=== PATIENT | female | born 1935 | race Caucasian/White ===

== ENCOUNTER → 2017-10-19 14:27 | Outpatient (POV) | payer SELFPAY | PROVIDERS: PCP Emergency Medicine; Visit Provider Podiatrist | DX: Z00.00 Encounter for general adult medical examination without abnormal findings (principal) ==

== ENCOUNTER → 2017-12-07 11:14 | Outpatient (POV) | payer SELFPAY | PROVIDERS: Visit Provider Podiatrist | DX: Z00.00 Encounter for general adult medical examination without abnormal findings (principal) ==

== ENCOUNTER → 2020-04-26 12:38 | Outpatient (CLI) | payer MEDICARE, OTHER, SELFPAY ==
--- NOTE | 2020-04-26 12:41 | CA_ITS ---
APPROVED REPORT EXAM: Comprehensive 2D, Doppler, and color-flow Echocardiogram Rate Clerk Passenger: Nadya Go RCS, RVS Ht: 5 ft 5 in Wt: 180lbs BSA: 1.89 BP: 135/75 mmHg Indications: CAD- single coronary stent, COPD, Murmur, HTN, HLD Echo Enhancing Agent Comments: Cardiac arrythmia present 2D Dimensions IVSd 1.22 cm LVEF (Visual) 54.30 % PWd 0.91 cm LVDd 5.53 cm LVDs 3.96 cm Aortic Root 3.16 cm Left Atrium 3.95 cm LVOT 2.00 cm (M/F) 1.5-2.5 M-Mode Dimensions LA Diam 4.35 cm (1.9-4.0) Ao Diam 3.24 cm (2.0-3.7) EPSs 1.18 cm LV Diastology E Decel Time 220.00 (160-240 msec) E/A Ratio 0.78 MED E' 5.30 (< 7 cm/sec) MED A' 8.20 cm/s E'/MED E' Ratio 16.04 (>14) LAT E' 8.10 (<10 cm/sec) LAT A' 6.50 cm/s E/LAT E' Ratio 10.49 (>14) Aortic Valve AI PHT 385.00 ms AO Peak GR. 9.50 mmHg AO VTI 214.16 (18-25 cm) Mitral Valve MV E Max Brady. 85.00 (40-130 cm/s) MV A Velocity 110.00 (40-130 cm/s) E/A Ratio 0.78 MV Decel. Time 220.00 (160-240 ms) MV Mean Gr. 2.50 (<2mmHg) MV PHT 64.00 ms Pulmonary Valve PV Peak Velocity 95.00 (50-150 cm/s) Tricuspid Valve TR P. Velocity 215.00 cm/s RAP Estimate 10.00 mmHg RVSP 28.50 mmHg Left Ventricle Left atrium is mildly enlarged, left ventricle is normal size, mild concentric left ventricular hypertrophy, visually estimated ejection fraction approximately 45 to 50%, there appears to be mild inferior wall hypokinesis, endocardial surfaces are poorly visualized. Right Ventricle Right atrium and right ventricle are normal size and contractility. Aortic Valve Aortic valve is thickened and calcified leaflet continue to display good mobility, there is no aortic stenosis or aortic insufficiency. Mitral Valve Mitral valve leaflets are minimally thickened, there is moderate mitral regurgitation. Tricuspid Valve Tricuspid valve is grossly normal, there is mild tricuspid regurgitation, tricuspid regurgitation jet velocity is inadequate for calculation of the right ventricular systolic pressure. Pulmonic Valve Pulmonic valve is poorly visualized. Great Vessels Aortic root is normal size. Pericardium No significant pericardial effusion noted. Conclusion 1. Mildly enlarged left atrium, normal left ventricular size, mild concentric left ventricular hypertrophy, visually estimated ejection fraction 45 to 50% with segmental wall motion abnormality described above, endocardial surfaces are poorly visualized. Diastolic parameters are inconclusive. 2. Moderate mitral and mild tricuspid regurgitation. 3. No significant pericardial effusion noted. Electronically signed by : Jeff Mejias, 04/26/2020 20:05:30
== END ==
PROVIDERS: PCP Emergency Medicine; Visit Provider Emergency Medicine
DX: R01.1 Cardiac murmur, unspecified (principal)
CPT/HCPCS: 93306

== ENCOUNTER → 2020-06-25 17:16 | Outpatient (CLI) | payer MEDICARE, OTHER, SELFPAY ==
[2020-06-25 17:18] LABS: Microscopic, Urine URINE MICROSCOPIC (MICROSCOPIC)
[2020-06-25 17:27] LABS: Appearance,Urine SL CLOUDY (Clear); Bilirubin,Urine Negative (Negative); Blood, Urine Negative (Negative); Color,Urine YELLOW (Yellow); Glucose,Urine (UA) Negative (Negative); Ketones,Urine Negative (Negative); Leukocyte Esterase,Urine Negative (Negative); Nitrate,Urine Negative (Negative); Protein,Urine 2+ (Negative); Specific Gravity, Urine >= 1.030 (1.005-1.030); Urobilinogen,Urine 0.2 EU/dl (0.2)
[2020-06-25 17:39] LABS: Amorphous Sediment,Urine 1+ /lpf; Squamous Epithelial Cell,Urine 20-50 #/hpf (0-5)
== END ==
PROVIDERS: Visit Provider Emergency Medicine
DX: R30.0 Dysuria (principal)
CPT/HCPCS: 81001

== ENCOUNTER 2020-07-17 16:24 | Inpatient (IN) | payer MEDICARE, OTHER, SELFPAY ==
[2020-07-17] VITALS (7 sets, daily range): BP systolic 119–157; BP diastolic 75–88; PULSE 75–110; RESP 16–24; TEMP 36.4–36.8; O2SAT 87–98; BMI 31.4; BMI 33.3
--- NOTE | 2020-07-17 16:28 | HMH.EDGENADL ---
ED Disposition Clinical Impression: New onset atrial fibrillation, Acute and chronic respiratory failure with hypoxia CHF exacerbation Qualifiers: Heart failure type: unspecified Qualified Code(s): I50.9 - Heart failure, unspecified Disposition: Admitted As Inpatient Condition on Discharge: Good Time of Disposition: 18:54 - Critical Care Critical Care Time: No Attestation: On , the high probability of a clinically significant, sudden or life threatening deterioration of the following system(s) required my full and direct attention, intervention and personal management. The time I documented below is in addition to time spent performing reported procedures but includes the following listed in this critical care notation. Medical Decision Making - Medical Records Medical records reviewed: Yes: I reviewed the patient's medical records. - Giovani Inquiry Pt receiving controlled substance: No Vital Signs: 07/17/20 16:25 Temperature 98.3 F Temperature Source Oral Pulse Rate [Radial] 94 H Respiratory Rate 20 Blood Pressure [Right Arm] 157/88 H Blood Pressure Mean [Right Arm] 111 02 Sat by Pulse Oximetry 87 L Oxygen Delivery Method Nasal Cannula Oxygen Flow Rate (LPM) 3 - Lab Data Lab results reviewed: Yes: I reviewed the patient's lab results. Lab Results 07/17/20 16:58: WBC 12.0 H, RBC 3.59 L, Hgb 10.1 L, Hct 33.1 L, MCV 92.4, MCH 28.3, MCHC 30.6 L, RDW 15.6, Plt Count 274, MPV 8.4, Neut % (Auto) 77.8, Lymph % (Auto) 14.3, [place] % (Auto) 6.4, Eos % (Auto) 0.8, Baso % (Auto) 0.5, Neut # (Auto) 9.3 H, Lymph # (Auto) 1.7, [place] # (Auto) 0.8, Eos # (Auto) 0.1, Baso # (Auto) 0.1 07/17/20 16:58: Sodium 131 L, Potassium 4.9, Chloride 99, Carbon Dioxide 24, Anion Gap 12.9, BUN 20 H, Creatinine 1.10 H, Estimated Creat Clear 44, Estimated GFR 47 L, Est GFR ( Amer) 57 L, Glucose 113 H, Calcium 9.0, Troponin I < 0.01, NT-Pro-B Natriuret Pep [id number] H 07/17/20 17:30: Urine Color Yellow, Urine Appearance Clear, Urine pH 6.0, Ur Specific [place] 1.020, Urine Protein Negative, Urine Glucose (UA) Negative, Urine Ketones Negative, Urine Blood Negative, Urine Nitrate Negative, Urine Bilirubin Negative, Urine Urobilinogen 0.2, Ur Leukocyte Esterase Negative, Urine RBC None, Urine WBC None, Ur Squamous Epith Cells 10-20, Urine Bacteria None Result diagrams: 07/17/20 16:58 07/17/20 16:58 Orders (Tests/Meds): ED MEDICATIONS Discontinued Medications Generic Name Dose Route Start Last Admin Trade Name Freq PRN Reason Stop Dose Admin Furosemide 20 mg 07/17/20 17:41 07/17/20 17:55 Furosemide 40mg/4ml Vial IV 07/17/20 17:42 20 mg ONCE ONE Administration ORDERS Category Date Time Status CXR 2 view (NOT portable) [XR chest 2V] Stat Exams 07/17/20 16:55 Taken Full Resp Panel w/COVID ([facility]) Routine Lab 07/17/20 17:45 Received Troponin I Q3H Lab 07/17/20 20:00 Ordered Troponin I Q3H Lab 07/17/20 23:00 Ordered - Radiology Data #1 Image(s): Chest Image Reviewed: Yes I reviewed the patient's radiology image Preliminary Findings: Abnormal Diffuse congestion - ECG Data Tracing #1 90 bpm, atrial fibrillation, nonspecific ST-T wave abnormalities, no ST elevation or depression ECG initial impression date: 07/17/20 ECG initial impression time: 16:48 Medical Decision Narrative: 85yo F evaluated for progressively worsening shortness of breath over 1 week. Differential diagnosis includes was not limited to: ACS/HI, pneumonia, PE, CHF exacerbation, GERD, anxiety, pulmonary embolism, arrhythmia, aortic dissection, pneumothorax. Patient is in no acute distress and satting 91 to 92% on her home O2. She is able to speak in full sentences. She is very pleasant and cooperative. Physical exam is largely unremarkable. Routine shortness of breath/chest pain work-up has been initiated. EKG demonstrates atrial fibrillation. The patient denies any previous history of atrial fibrillation. Noted to renae
--- NOTE | 2020-07-17 16:55 | XR_ITS ---
PROCEDURE: XR CHEST 2V CLINICAL HISTORY: sob Shortness of breath COMPARISON: No exams were available for comparison FINDINGS: There is cardiomegaly with pulmonary venous congestion and small bilateral pleural effusions consistent with CHF. There is an epidural stimulator present in the mid and upper thoracic region. Mild atelectatic changes in the lung bases. Severe bilateral subacromial stenosis with high-riding humeral head consistent with rotator cuff tears IMPRESSION: CHF with small bilateral effusions Dictated by: Thanh Galo MD 07/17/2020 19:12 Thanh Galo MD in [place] 07/17/2020 19:12
--- NOTE | 2020-07-17 17:09 | ECG_ITS ---
APPROVED REPORT Exam: Resting ECG HR:90 bpm ECG Measurements Heart Rate 90 AXES QRSd 84 QRS -22 QT 344 T 56 QTc 420 Conclusion Atrial fibrillation Nonspecific ST and T wave abnormality, probably digitalis effect Abnormal ECG Electronically signed by : Antonio Soto, 07/18/2020 08:49:00
[2020-07-17 17:12] LABS: Basophils # 0.1 K/mm3 (0-0.2); Basophils % 0.5 % (0.1-2.0); Eosinophils # 0.1 K/mm3 (0.0-0.4); Eosinophils % 0.8 % (0.1-12.0); Hematocrit 33.1 % (37.0-47.0); Hemoglobin 10.1 g/dL (12.2-16.2); Lymphocytes # 1.7 K/mm3 (0.7-4.5); Lymphocytes % 14.3 % (10-50); Mean Corpuscular HGB Conc 30.6 g/dL (31.8-35.4); Mean Corpuscular Hemoglobin 28.3 pg (27.0-31.2); Mean Corpuscular Volume 92.4 fl (81-99); Mean Platelet Volume 8.4 fl (7.4-10.4); Monocytes # 0.8 K/mm3 (0.1-1.0); Monocytes % 6.4 % (1.7-9.3); Neutrophils # 9.3 K/mm3 (1.8-7.8); Neutrophils % 77.8 % (37.0-80.0); Platelet Count 274 K/mm3 (142-424); Red Blood Count 3.59 M/mm3 (4.20-5.40); Red Cell Distribution Width 15.6 % (11.5-17.5)
[2020-07-17 17:13] LABS: Chloride 99 mmol/L (98-107)
[2020-07-17 17:14] LABS: Potassium 4.9 mmoL/L (3.5-5.1); Sodium 131 mmol/L (136-145)
[2020-07-17 17:16] LABS: Blood Urea Nitrogen 20 mg/dl (7-17); Creatinine Clearance Estimated 44 mL/min (50-200); Estimated Glomerular Filt Rate 47 ml/min (>60); GFR (African American) 57 ML/MIN (>60)
[2020-07-17 17:17] LABS: Anion Gap 12.9 mEq/L (5-15); Carbon Dioxide 24 mmol/L (22.0-30.0); Glucose 113 mg/dl (74-100)
[2020-07-17 17:26] LABS: NT Pro Brain Natriuretic Pep. 15900 pg/mL (0-450)
[2020-07-17 17:30] LABS: Troponin I < 0.01 ng/ml (0.00-0.034)
[2020-07-17 17:40] LABS: Microscopic, Urine URINE MICROSCOPIC (MICROSCOPIC)
[2020-07-17 17:48] LABS: Adenovirus,PCR Not Detected (NotDetected); Bordetella Pertussis Not Detected (NotDetected); Chlamydophila Pneumoniae, PCR Not Detected (NotDetected); Coronavirus 19, PCR Not Detected (NotDetected); Coronavirus 229E Not Detected (NotDetected); Coronavirus NL63 Not Detected (NotDetected); Coronavirus OC43 Not Detected (NotDetected); Coronovirus HKU1,PCR Not Detected (NotDetected); Human Metapneumovirus Not Detected (NotDetected); Influenza A, PCR Not Detected (NotDetected); Influenza AH1, 2009 Not Detected (NotDetected); Influenza AH1, PCR Not Detected (NotDetected); Influenza AH3,PCR Not Detected (NotDetected); Influenza B, PCR Not Detected (NotDetected); Mycoplasma Pneumoniae, PCR Not Detected (NotDetected); Parainfluenza 1, PCR Not Detected (NotDetected); Parainfluenza 2, PCR Not Detected (NotDetected); Parainfluenza 3, PCR Not Detected (NotDetected); Parainfluenza 4, PCR Not Detected (NotDetected); Respiratory Syncytial Virus Not Detected (NotDetected); Rhinovirus/Enterovirus Not Detected (NotDetected)
[2020-07-17 17:51] LABS: Appearance,Urine CLEAR (Clear); Bilirubin,Urine Negative (Negative); Blood, Urine Negative (Negative); Color,Urine YELLOW (Yellow); Glucose,Urine (UA) Negative (Negative); Ketones,Urine Negative (Negative); Leukocyte Esterase,Urine Negative (Negative); Nitrate,Urine Negative (Negative); Protein,Urine Negative (Negative); Urobilinogen,Urine 0.2 EU/dl (0.2)
--- NOTE | 2020-07-17 18:18 | PC.NURSE ---
MARLENE DILLARD speaking with Dr. Soto who is hat ironer for Dr. Alamo
--- NOTE | 2020-07-17 19:24 | PC.NURSE ---
REPORT CALLED TO FLOOR
--- NOTE | 2020-07-17 19:26 | PC.NURSE ---
URINE OUT PUT 300CC
--- NOTE | 2020-07-17 19:26 | PC.NURSE ---
PT AND FAMILY UPDATED ON PLAN OF CARE
--- NOTE | 2020-07-17 19:59 | PC.NURSE ---
PT ARRIVED TO FLOOR SERENA W/C FROM ED W/STAFF AT 1958
--- NOTE | 2020-07-17 21:20 | PC.NURSE ---
Assessment of patient's skin revealed a bruise located on the small of the back measuring 3 cm in diameter. Also noted discoloration BLE below knee.
[2020-07-17 21:27] LABS: Troponin I 0.01 ng/ml (0.00-0.034)
[2020-07-18] VITALS (8 sets, daily range): BP systolic 137–148; BP diastolic 64–93; PULSE 76–115; RESP 16–20; TEMP 36.4–36.9; O2SAT 90–95; BMI 33.3
[2020-07-18 00:07] LABS: Troponin I < 0.01 ng/ml (0.00-0.034)
--- NOTE | 2020-07-18 05:15 | PC.NURSE ---
ice passed trash and linens picked up. pt had no other needs.KEvelinM
--- NOTE | 2020-07-18 06:27 | PC.NURSE ---
Pt admitted for Acute/Chronic Resp Failure, New onset A fib CHF exacerbation. Patient on Tele and Continuous Pulse Ox. Patient had good output last night and diuresed well. Patient has a PureWick and was effective througout the night. Patient's oxygenation WDL on 4 L n/c. Will continue to monitor for any acute changes.
[2020-07-18 07:22] LABS: Basophils # 0.1 K/mm3 (0-0.2); Basophils % 0.6 % (0.1-2.0); Eosinophils # 0.3 K/mm3 (0.0-0.4); Eosinophils % 3.3 % (0.1-12.0); Hematocrit 31.3 % (37.0-47.0); Hemoglobin 9.8 g/dL (12.2-16.2); Lymphocytes # 1.9 K/mm3 (0.7-4.5); Lymphocytes % 19.9 % (10-50); Mean Corpuscular HGB Conc 31.3 g/dL (31.8-35.4); Mean Corpuscular Hemoglobin 28.4 pg (27.0-31.2); Mean Corpuscular Volume 90.7 fl (81-99); Mean Platelet Volume 8.6 fl (7.4-10.4); Monocytes # 0.6 K/mm3 (0.1-1.0); Monocytes % 6.8 % (1.7-9.3); Neutrophils # 6.5 K/mm3 (1.8-7.8); Neutrophils % 69.5 % (37.0-80.0); Platelet Count 220 K/mm3 (142-424); Red Blood Count 3.44 M/mm3 (4.20-5.40); Red Cell Distribution Width 15.8 % (11.5-17.5); White Blood Count 9.4 K/mm3 (4.8-10.8)
[2020-07-18 07:44] LABS: Chloride 110 mmol/L (98-107); Potassium 3.2 mmoL/L (3.5-5.1); Sodium 136 mmol/L (136-145)
[2020-07-18 07:47] LABS: Blood Urea Nitrogen 17 mg/dl (7-17); Creatinine Clearance Estimated 52 mL/min (50-200); Estimated Glomerular Filt Rate 80 ml/min (>60); GFR (African American) 96 ML/MIN (>60)
[2020-07-18 07:48] LABS: Anion Gap 6.2 mEq/L (5-15); Carbon Dioxide 23 mmol/L (22.0-30.0); Glucose 104 mg/dl (74-100)
[2020-07-18 08:25] LABS: Calcium 6.7 mg/dl (8.4-10.2)
--- NOTE | 2020-07-18 09:30 | HMH.HP ---
*Admission Date: 07/17/20 *Chief complaint: sob *History of present illness: this patient presented to the ed with increased sob - she does have hx of copd from distant tob use and uses 2l o2 at home - she has seen card in past - in the ed was noted to be in a fib and have chf and was admitted -5yo F presents secondary shortness of breath. Daughters at bedside. Patient lives with daughter. Reports patient wears 2 L nasal cannula at all time. With her home O2, the daughter reports the patient's home O2 has not been above 91%. Patient and daughter at bedside reported she has been more short of breath. Progressively worsening over the past week. No change in cough. No change in sputum production. No fever. No chest pain. Patient takes Lasix at home which has improved her lower extremity edema. Appetite is normal. No nausea/vomit/diarrhea. pt was admitted for treatment and eval [facility] [place] History I have reviewed the patient's past medical history: Yes Medical History: Reports:: Anxiety, Asthma, Congestive Heart Failure, Chronic Obstructive Pulmonary Disease (COPD), Gastroesophageal Reflux Disease(GERD), Home Oxygen, Hypertension, Osteoporosis, Renal Insufficiency, Urinary Tract Infection Denies:: Cancer, Diabetes Mellitus Type 1, Diabetes Mellitus Type 2, MRSA *Have you ever received a pneumonia vaccine?: Yes *Have you received a flu vaccine this season?: Yes Other Medical History: Reports: Anemia, Cataracts, Hormone Therapy, Hypothyroidism, Osteoporosis, Thyroid Disease Laterality Cases: Right: Arthroscopy Shoulder Other Surgeries: Yes: Cardiac Catheterization, Cholecystectomy, Coronary Stent, Hysterectomy-Total Amputation: No Fractures: Yes - *Social History Last grade of school completed: 5th or 6th Smoking Status: Former smoker Tobacco Type: cigarettes # Packs/Day (cigarettes): 4 #Yrs smoked (if former smoker): 40 Smoking End Date: 11/24/1981 Alcohol Intake: never Substance Use Type: denies use *Occupational Status:: retired Housing: house Household Members: family *Travel in the last 8 weeks: None - Psychiatric History Pschychiatric History:: Reports:: Anxiety Family Hx:: Coronary Artery Disease, Stroke Review of Systems - Review of Systems Review of systems:: pertinent systems reviewed and negative unless documented below - Constitutional Denies body ache(s) - Eyes Denies double vision - ENT Denies difficulty swallowing, Denies sinus pressure, Denies tongue swelling - *Cardiovascular Reports chest pain - *Respiratory Reports cough, Reports shortness of breath - *Gastrointestinal Denies vomiting - *Genitourinary Denies blood in urine - *Musculoskeletal Reports joint pain, Denies joint swelling, Denies neck pain - Integumentary/Breasts Denies rash - *Neurologic Denies behavioral changes, Denies dizziness, Denies headache(s) - Psychiatric Denies thoughts of hurting/killing yourself Meds Home Medications Medication Instructions Recorded Confirmed Type amlodipine 2.5 mg tablet 2.5 mg PO HS tab 02/24/20 07/17/20 History carvedilol 12.5 mg tablet 12.5 mg PO BID 02/24/20 07/17/20 History ergocalciferol (vitamin D2) 1,250 1,250 mcg PO QMONTH 02/24/20 07/17/20 History mcg (50,000 unit) capsule fluticasone propionate 50 1 spray INTRANASAL DAILY 02/24/20 07/17/20 History mcg/actuation nasal spray,suspension lisinopril 20 mg tablet 20 mg PO DAILY 02/24/20 07/17/20 History alprazolam 0.5 mg tablet 0.5 mg PO HS PRN #30 tab 06/25/20 07/17/20 Rx oxycodone-acetaminophen 5 mg-325 1 tab PO BID PRN #60 tab 06/25/20 07/17/20 Rx mg tablet tiotropium bromide 18 mcg capsule 1 cap INHALATION DAILY 06/25/20 07/17/20 History with inhalation device Clopidogrel Bisulfate [Plavix] 75 mg PO DAILY 07/17/20 07/18/20 History Fluoxetine HCl [Prozac] 20 mg PO DAILY 07/17/20 07/18/20 History Gabapentin [Gabapentin 100mg Cap] 100 mg PO BID 07/17/20 07/17/20 History Levothyroxine Sodium [Synthroid 112 mcg PO DA
[2020-07-18 09:57] LABS: Magnesium 1.3 mg/dl (1.6-2.3)
[2020-07-18 10:14] LABS: T4 (Thyroxine) 10.3 ug/dl (5.53-11.0)
[2020-07-18 10:27] LABS: Thyroid Stimulating Hormone 0.27 uIU/mL (0.465-4.68)
--- NOTE | 2020-07-18 11:54 | HMH.PHAVTE ---
[facility] Pharmacy VTE Monitoring - Patient Demographics Admission date: 07/18/20 Report Date: 07/18/20 Time: 11:54 Allergies/Adverse Reactions: Patient Allergies cefuroxime [From Ceftin] Allergy (Intermediate, Verified 06/25/20 16:09) ciprofloxacin [From Cipro] Allergy (Intermediate, Verified 06/25/20 16:09) rash doxycycline Allergy (Intermediate, Verified 06/25/20 16:09) NSAIDS (Non-Steroidal Anti-Inflamma Allergy (Intermediate, Verified 06/25/20 16:09) aspirin Allergy (Mild, Verified 06/25/20 16:09) asthma attack sulfamethoxazole [From Bactrim] Allergy (Mild, Verified 06/25/20 16:09) rash trimethoprim [From Bactrim] Allergy (Mild, Verified 06/25/20 16:09) rash vancomycin Allergy (Mild, Verified 06/25/20 16:09) rash Height: 1.55 m Weight: 80.087 kg Patient Problems: Current Active Problems New onset atrial fibrillation (Acute) CHF exacerbation (Acute) Acute and chronic respiratory failure with hypoxia (Acute) - VTE Risk Labs: VTE Related Lab Results Hgb 9.8 g/dL (12.2-16.2) L 07/18/20 07:03 Hct 31.3 % (37.0-47.0) L 07/18/20 07:03 Plt Count 220 K/mm3 (142-424) 07/18/20 07:03 BUN 17 mg/dl (7-17) 07/18/20 07:03 Creatinine 0.70 mg/dl (0.52-1.04) D 07/18/20 07:03 Estimated Creat Clear 52 mL/min (50-200) 07/18/20 07:03 VTE Score: 9 VTE Risk Level: Moderate Risk - Prophylaxis Types of VTE Prophylaxis: TEDS Knee High, IPCS Knee High (IDCS ORDERED. HOSSEIN HOSE ORDER PLACED IF NEEDED.) Location of Applied Device: Not Applicable
--- NOTE | 2020-07-18 16:36 | PC.NURSE ---
no acute changes since prior nurse's bio, pt is AxOx4, remains on 3L NC with O2 sats 90-95%, no complaints of SOA or chest pain, purewick in place
[2020-07-19] VITALS: BP 138/62; PULSE 90; PULSE 94; RESP 19; TEMP 36.7; O2SAT 93
--- NOTE | 2020-07-19 03:39 | PC.NURSE ---
Able to state name, , place; unable to state year. Pt. can follow commands and state needs. No c/o n/v/d, cp or dizziness. Reports some soa, 3l nc with o2 sat 92-93%; diminished lung sounds bilat.
[2020-07-19 04:00] VITALS: BP 136/62; PULSE 86; PULSE 90; RESP 19; TEMP 36.7; O2SAT 94
[2020-07-19 05:23] VITALS: BMI 33.2
[2020-07-19 08:00] VITALS: BP 144/80; PULSE 110; PULSE 72; RESP 17; TEMP 36.7; O2SAT 91
--- NOTE | 2020-07-19 08:00 | CA_ITS ---
APPROVED REPORT EXAM: Limited 2D Echocardiogram Die Welder: Migdalia Mota RVT Ht: 5 ft 1 in Wt: 176lbs BSA: 1.79 BP: 143/74 mmHg Indications: CHF,A-FIB,CAD,STENT,HOME O2, COPD,HTN,MURMUR,HLD M-Mode Dimensions RVDd 2.71 cm (0.9-2.6) LA Diam 3.69 cm (1.9-4.0) LVDd 5.78 cm (3.5-5.7) Ao Diam 3.21 cm (2.0-3.7) LVDs 3.85 cm (3.5-5.7) IVSd 0.75 cm (0.6-1.1) PWd 0.61 cm (0.6-1.1) EF (Teich) 61.30% FS 33.40% EDV (Teich) 165.20 mL ESV (Teich) 63.90 mL Tricuspid Valve TR P. Velocity 340.00 cm/s RAP Estimate 10.00 mmHg RVSP 56.20 mmHg Left Ventricle Technically difficult and limited study was performed. Left atrium is mildly enlarged, left ventricle is normal size, mild concentric left ventricular hypertrophy, visually estimated ejection fraction 55% with no regional wall motion abnormality, endocardial surfaces are poorly visualized. Diastolic parameters were not obtained. Right Ventricle Right atrium and right ventricle are mildly enlarged with normal contractility. Aortic Valve Aortic valve is minimally thickened and fibrosed, there is no aortic stenosis or aortic insufficiency. Mitral Valve Mitral valve is minimally thickened, there is no mitral stenosis morphologically. There is mild mitral regurgitation seen. Mitral inflow velocities were not obtained. Tricuspid Valve Tricuspid valve is grossly normal, there is trace tricuspid regurgitation, tricuspid regurgitation jet velocity is inadequate for calculation of the right ventricular systolic pressure. Pulmonic Valve Pulmonic valve is poorly visualized. Great Vessels Aortic root is normal size. Pericardium No significant pericardial effusion noted. Conclusion 1. Technically difficult study, biatrial enlargement, normal left ventricular size, mild concentric left ventricular hypertrophy, visually estimated ejection fraction 55% with no regional wall motion abnormality, diastolic parameters are inconclusive. 2. Mildly enlarged right ventricle with normal contractility. 3. Mild mitral and trace tricuspid regurgitation. 4. No significant pericardial effusion noted. Electronically signed by : Jeff Mejias, 07/19/2020 19:33:50
--- NOTE | 2020-07-19 09:40 | HMH.CNCARD ---
History of Present Illness Consult date: 07/19/20 Requesting physician: Keyon Alamo Consult reason: atrial fibrillation, congestive heart failure Chief complaint: SOA History of present illness: This is an 85-year-old white female who presented to the emergency department with complaints of shortness of breath. She states that her shortness of breath has been progressively worse for approximately 1 week prior to coming into the hospital. He states that this was severe. No associated edema. When she presented to the emergency department she was found to be in new onset atrial fibrillation and also had a BNP of 15, 900. The patient was treated with 20 mg of IV Lasix in the emergency department. She states this morning her shortness of breath is much better. She states that she is a little short of breath intermittently but nothing like it was prior to her admission to the hospital. She denies any chest pain or pressure. She denies a cough. She denies any sputum production. She denies any fever, chills, nausea, vomiting or diarrhea. As mentioned above the patient was found to be in new onset atrial fibrillation. She denied any palpitations or racing of the heart. [facility] History I have reviewed the patient's past medical history: Yes Medical History: Reports:: Anxiety, Asthma, Congestive Heart Failure, Chronic Obstructive Pulmonary Disease (COPD), Gastroesophageal Reflux Disease(GERD), Home Oxygen, Hypertension, Osteoporosis, Renal Insufficiency, Urinary Tract Infection Denies:: Cancer, Diabetes Mellitus Type 1, Diabetes Mellitus Type 2, MRSA *Have you ever received a pneumonia vaccine?: Yes *Have you received a flu vaccine this season?: Yes Other Medical History: Reports: Anemia, Cataracts, Hormone Therapy, Hypothyroidism, Osteoporosis, Thyroid Disease Laterality Cases: Right: Arthroscopy Shoulder Other Surgeries: Yes: Cardiac Catheterization, Cholecystectomy, Coronary Stent, Hysterectomy-Total Amputation: No Fractures: Yes - *Social History Last grade of school completed: 5th or 6th Smoking Status: Former smoker Tobacco Type: cigarettes # Packs/Day (cigarettes): 4 #Yrs smoked (if former smoker): 40 Smoking End Date: 11/24/1981 Alcohol Intake: never Substance Use Type: denies use *Occupational Status:: retired Housing: house Household Members: family *Travel in the last 8 weeks: None - Psychiatric History Pschychiatric History:: Reports:: Anxiety Family Hx:: Coronary Artery Disease, Stroke Meds Home Medications Medication Instructions Recorded Confirmed Type amlodipine 2.5 mg tablet 2.5 mg PO HS tab 02/24/20 07/17/20 History carvedilol 12.5 mg tablet 12.5 mg PO BID 02/24/20 07/17/20 History ergocalciferol (vitamin D2) 1,250 1,250 mcg PO QMONTH 02/24/20 07/17/20 History mcg (50,000 unit) capsule fluticasone propionate 50 1 spray INTRANASAL DAILY 02/24/20 07/17/20 History mcg/actuation nasal spray,suspension lisinopril 20 mg tablet 20 mg PO DAILY 02/24/20 07/17/20 History alprazolam 0.5 mg tablet 0.5 mg PO HS PRN #30 tab 06/25/20 07/17/20 Rx oxycodone-acetaminophen 5 mg-325 1 tab PO BID PRN #60 tab 06/25/20 07/17/20 Rx mg tablet tiotropium bromide 18 mcg capsule 1 cap INHALATION DAILY 06/25/20 07/17/20 History with inhalation device Clopidogrel Bisulfate [Plavix] 75 mg PO DAILY 07/17/20 07/18/20 History Fluoxetine HCl [Prozac] 20 mg PO DAILY 07/17/20 07/18/20 History Gabapentin [Gabapentin 100mg Cap] 100 mg PO BID 07/17/20 07/17/20 History Levothyroxine Sodium [Synthroid 112 mcg PO DAILY 07/17/20 07/18/20 History 112mcg (0.112mg) tablet] Methenamine Hippurate 1 gm PO BID 07/17/20 07/18/20 History Pantoprazole Sodium 40 mg PO DAILY 07/17/20 07/17/20 History estradioL [Estradiol] 0.5 mg PO DAILY 07/17/20 07/17/20 History predniSONE [Prednisone 5mg 5 mg PO Q48H 07/17/20 07/18/20 History Tab] Calcium Carbonate [Calcium] 600 mg PO BID 07/18/20 07/18/20 History Ferrous Sulfate [Iron 325mg Tab] 325
--- NOTE | 2020-07-19 09:58 | HMH.ACPN2 ---
Internal Medicine - PN: Subj *Date: 07/19/20 *Time: 08:35 Interval history: pt sitting on side of bed, states rt knee pain. pt states breathing has improved some Exam Vital signs and Labs for Last 24 Hours: Temp Pulse Resp BP Pulse Ox 98.0 F 72 17 144/80 H 91 L 07/19/20 08:00 07/19/20 08:00 07/19/20 08:00 07/19/20 08:00 07/19/20 08:00 Laboratory Results - last 24 hr 07/18/20 07:03: TSH 0.27 L, Thyroxine (T4) 10.3 07/18/20 07:03: Magnesium 1.3 L I & O for Last 24 hours: Intake & Output 07/16/20 07/17/20 07/18/20 07/19/20 11:59 11:59 11:59 11:59 Intake Total 860 / 860 900 / 900 Output Total 1000 / 1000 350 / 350 Balance -140 / -140 550 / 550 Weight 176 lb 8.986 oz 176 lb - Constitutional no acute distress, obese - *Routine HEENT Exam Head: Present: normocephalic Eye: Present: PERRL ENT: Present: mucous membranes moist - *Routine Neck Exam Present: supple. Absent: lymphadenopathy - *Routine Respiratory Exam Present: CTA bilaterally - *Routine Cardiovascular Exam Present: murmur, irregularly irregular - *Routine Abdominal Exam Present: soft, normoactive bowel sounds. Absent: tenderness - *Routine Extremities Exam Present: normal capillary refill. Absent: cyanosis, clubbing, edema - *Routine Skin Exam Present: warm. Absent: rash - *Routine Neurological Exam Present: alert, oriented X3 - Routine Psychiatric Exam Present: normal affect Assessment and Plan (1) New onset atrial fibrillation Status: Acute Category: Medical Code(s): I48.91 - Unspecified atrial fibrillation (2) CHF exacerbation Status: Acute Qualifiers: Heart failure type: unspecified Qualified Code(s): I50.9 - Heart failure, unspecified Category: Medical Code(s): I50.9 - Heart failure, unspecified (3) Acute and chronic respiratory failure with hypoxia Status: Acute Category: Medical Code(s): J96.21 - Acute and chronic respiratory failure with hypoxia (4) CAD (coronary artery disease) Status: Chronic Qualifiers: Coronary Disease-Associated Artery/Lesion type: [place] artery [place] vs. transplanted heart: [place] heart Associated angina: without angina Qualified Code(s): I25.10 - Atherosclerotic heart disease of [place] coronary artery without angina pectoris Category: Medical Code(s): I25.10 - Atherosclerotic heart disease of [place] coronary artery without angina pectoris (5) HTN (hypertension) Status: Acute Qualifiers: Hypertension type: essential hypertension Qualified Code(s): I10 - Essential (primary) hypertension Category: Medical Code(s): I10 - Essential (primary) hypertension (6) SOB (shortness of breath) Status: Acute Category: Medical Code(s): R06.02 - Shortness of breath (7) Hypokalemia Status: Acute Category: Medical Code(s): E87.6 - Hypokalemia (8) Cardiomyopathy Status: Acute Category: Medical Code(s): I42.9 - Cardiomyopathy, unspecified (9) History of COPD Status: Acute Category: Medical Code(s): Z87.09 - Personal history of other diseases of the respiratory system - Assessment and plan all Dx Assessment and Plan for all problems:: rounded with dr hernandez all orders per drgainey cardiology consult pt/ot consult
--- NOTE | 2020-07-19 11:31 | HMH.OTEV ---
OT Inpatient Evaluation Rehab OT IP Evaluation Start: 07/19/20 10:01 Freq: ONCE Status: Complete Protocol: Document 07/19/20 11:26 LEYDI (Rec: 07/19/20 11:31 [facility] [id number]) Rehab OT IP Assessment Subjective History Pt oriented x 2 on arrival. Pt agreeable to engage in therapy evaluation. Pt reports she lives alone; however ER documentation says she lives with her daughter. Pt was admitted via ED on 07/17 due to worsening SOB. Pt has a past medical history of Anxiety, Asthma, CHF, COPD, GERD, Home oxygen, HTN, osteoporosis, and UTI. Pt reports seh lives at home alone. She claims she was independent with dressing, bathing, and feeding. Pt did have her daughters assist wtih cooking and cleaning. Pt uses a rolling walker at all times and oxygen. Subjective They help when I need them to . Objective Patient Orientation Person,Birthday Upper Extremity Gross ROM WFL Bed Mobility bed mobility-scooting,bed mobility - supine/sit,bed mobility - rolling Assist Level Moderate x 2 (50% assist) Transfer Training Sit/Stand Transfer Assist Level Minimal x 1 (25% assist) Rehab OT IP prob,goals,plan Problems Date of Evaluation: 07/19/20 OT IP Problems Bed Mobility,Transfers,Gait, Balance,Self care,Safety Rehab Potential Rehab Potential Good Equipment Needs Assistive Devices Rolling / Wheeled Walker Plan OT intervention Plan Bed Mobility,Transfers,Gait, Balance,Self care,Safety, Therapeutic Exercise OT Plan Frequency BID Duration LOS Discharge Goals Bed Mobility Ability Assistance x1 Sit to Stand Chair Transfer Ability Minimal x 1 (25% assist) Chair Transfer Ability Minimal x 1 (25% assist) Chair Transfer Technique Sit to/from Ambulatory Chair Transfer Assistive Devices Rolling Walker Self care skills fully toilet trained,uses utensils to feed self Feeding Ability
--- NOTE | 2020-07-19 11:38 | HMH.PTEV ---
Physical Therapy Evaluation Rehab PT IP Evaluation Start: 07/19/20 10:01 Freq: ONCE Status: Active Protocol: Document 07/19/20 11:34 PHORNE (Rec: 07/19/20 11:38 PHORNE [id number]) Subjective/History History History 85 yowf adm to [facility] with CHF exac and a-fib. She reports living by herslef, no steps to enter the home, uses a walker for ambulation. Subjective Subjective She c/o significant pain in the R knee which has only been present for the past 24 hrs. Rehab PT IP Eval Objective Appearance Patient Behavior Appropriate Patient Orientation Person,Place Difficulty following instructions none Speech Pattern Clear Ambulation Patient Able to Ambulate No Balance Ability to Arise Able, uses arms to help Sitting Balance Steady, safe Standing Balance Steady, wide stance Dynamic Sitting Balance Ability Good Dynamic Standing Balance Ability Fair Transfers Bed Transfer Ability Minimal x 1 (25% assist) Chair Transfer Ability Moderate x 1 (50% assist) Sit to Stand Bed Transfer Ability Minimal x 1 (25% assist) Sit to Stand Chair Transfer Ability Minimal x 1 (25% assist) ROM All Extremities PT ROM Status WFL Abnormal ROM Comment R knee is painful during all ROM. MMT All Extremities PT MMT WFL Rehab PT IP prob,goals,plan Problems Date of Evaluation: 07/19/20 PT IP Problems Bed Mobility,Transfers,Gait Rehab Potential Rehab Potential Good Plan PT Intervention Plan Bed Mobility,Transfers,Gait, Self care,Therapeutic Exercise PT Plan Frequency BID Duration LOS Discharge Goals Bed Transfer Ability Contact Guard/Hand Hold Sit to Stand Chair Transfer Ability Contact Guard/Hand Hold Ambulation Assistive Device Rolling Walker Ambulation Distance (feet) 20 Discharge Plan PT Discharge Plan Pt is currently most appropriate for rehab placement due to significant chance of injury and poor outcomes if she were to return home at this time. Should her safe mobility improve, she may be able to return home once medically stable. G -code Required No Eval Complexity Eval Charge Codes
[2020-07-19 12:00] VITALS: BP 140/73; PULSE 100; PULSE 94; RESP 19; TEMP 36.9; O2SAT 93
--- NOTE | 2020-07-19 12:29 | CA_ITS ---
APPROVED REPORT Right Lower Extremity Venous Study for DVT. Call Center Professional: CT Indications Leg pain Vein Imaging CFV (R): compressive, spontaneous, phasic, augmentation SFJ (R): compressive, spontaneous, phasic, augmentation FEM (R): compressive, spontaneous, phasic, augmentation POP (R): compressive, spontaneous, phasic, augmentation DFV (R): compressive, spontaneous, phasic, augmentation PTV (R): compressive, spontaneous, phasic, augmentation GSV (R): compressive, spontaneous, phasic, augmentation SSV (R): compressive, spontaneous, phasic, augmentation Peroneals (R):compressive, spontaneous, phasic, augmentation GAS (R): compressive, spontaneous, phasic, augmentation Conclusion RLE negative for DVT/SVT Vessels fully compressible Electronically signed by : Thanh Galo MD 07/19/2020 16:48:54
[2020-07-19 14:52] VITALS: BMI 33.3
[2020-07-19 16:00] VITALS: BP 117/86; PULSE 120; PULSE 77; RESP 17; TEMP 37.1; O2SAT 96
--- NOTE | 2020-07-19 17:43 | PC.NURSE ---
PT HAS HAD A GOOD DAY. SHE IS PLEASANTLY CONFUSED. SHE WAS GIVEN A PRN PAIN MEDICATION X1 THIS SHIFT, AND PT AGREED TO GET UP TO CHAIR. PAIN MEDICATION HAD FAVORABLE RESULTS. NO FURTHER C/O PAIN. SAFETY IN PLACE. VSS. CALL LIGHT WITHIN REACH. WILL CONT. TO MONITOR.
[2020-07-19 20:00] VITALS: BP 119/71; PULSE 120; PULSE 125; RESP 22; TEMP 37.3; O2SAT 95
[2020-07-20] VITALS (12 sets, daily range): BP systolic 105–134; BP diastolic 44–84; PULSE 60–112; RESP 16–20; TEMP 36.7–37.3; O2SAT 88–98; BMI 34.0
--- NOTE | 2020-07-20 03:39 | PC.NURSE ---
Pt has been confused at times this shift. When pt was asked where she was, she responded, At your home in your basement. Pt has had to be redirected. Pt also asked multiple times for her night medication early in shift. VS have been stable except for HR which has been tachycardic. Pt remains afib on telemetry. HR has randed from 90s to brief periods as high as 130s. Other VSS. She remains on O2 3L NC with sats in lower 90s. Lungs noted to have scattered wheezing. BS x4. No BM this shift. Pt has been incontinent of urine. Purewick in place. Urine is discolored due to medication, pyridium. Pt turned and repositioned per staff. No other concerns. Will continue to monitor.
[2020-07-20 06:04] LABS: Basophils # 0.1 K/mm3 (0-0.2); Basophils % 0.6 % (0.1-2.0); Eosinophils # 0.2 K/mm3 (0.0-0.4); Eosinophils % 1.5 % (0.1-12.0); Hemoglobin 9.5 g/dL (12.2-16.2); Lymphocytes # 2.7 K/mm3 (0.7-4.5); Lymphocytes % 24.7 % (10-50); Mean Corpuscular HGB Conc 30.7 g/dL (31.8-35.4); Mean Corpuscular Hemoglobin 28.6 pg (27.0-31.2); Mean Corpuscular Volume 93.4 fl (81-99); Mean Platelet Volume 8.5 fl (7.4-10.4); Neutrophils % 64.1 % (37.0-80.0); Platelet Count 249 K/mm3 (142-424); Red Blood Count 3.32 M/mm3 (4.20-5.40); Red Cell Distribution Width 15.7 % (11.5-17.5); White Blood Count 10.8 K/mm3 (4.8-10.8)
[2020-07-20 06:05] LABS: Chloride 97 mmol/L (98-107); Sodium 131 mmol/L (136-145)
[2020-07-20 06:06] LABS: Potassium 4.7 mmoL/L (3.5-5.1)
[2020-07-20 06:08] LABS: Blood Urea Nitrogen 28 mg/dl (7-17); Creatinine Clearance Estimated 41 mL/min (50-200); Estimated Glomerular Filt Rate 39 ml/min (>60); GFR (African American) 47 ML/MIN (>60)
[2020-07-20 06:09] LABS: Anion Gap 8.7 mEq/L (5-15); Carbon Dioxide 30 mmol/L (22.0-30.0); Glucose 118 mg/dl (74-100)
--- NOTE | 2020-07-20 08:54 | HMH.PNCARD ---
Subjective Date: 07/20/20 Time: 08:40 Principal diagnosis: Afib, chf Interval history: This is a 89-year-old white female presents to the emergency department complaints of shortness of breath. This has been progressively worsening over the last week and had become severe. The patient's BNP was 15,900 and she was found to be in new onset atrial fibrillation. The patient was treated with Lasix in the emergency department and states her shortness of breath significantly improved. She was started on oral Lasix yesterday and this morning she states that her shortness of breath is much better. She is complaining of a cough when she is eating and being unable to swallow her food. She states that this started prior to her coming into the hospital and is still persisting. She denies any edema. She denies any fever, chills, nausea, vomiting or diarrhea. States that she does have some mild shortness of breath on exertion at times but this is much better than it was. She remains in atrial fibrillation today which in her heart rate is a little higher than we would like. She was started on oral anticoagulation yesterday. She tolerated this well and denies any bleeding. Exam Vital signs and Labs for Last 24 Hours: Temp Pulse Resp BP Pulse Ox 98.4 F 107 H 18 127/72 89 L 07/20/20 07:29 07/20/20 07:29 07/20/20 08:09 07/20/20 07:29 07/20/20 07:29 Laboratory Results - last 24 hr 07/20/20 05:40: WBC 10.8, RBC 3.32 L, Hgb 9.5 L, Hct 31.0 L, MCV 93.4, MCH 28.6, MCHC 30.7 L, RDW 15.7, Plt Count 249, MPV 8.5, Neut % (Auto) 64.1, Lymph % (Auto) 24.7, Riley % (Auto) 9.0, Eos % (Auto) 1.5, Baso % (Auto) 0.6, Neut # (Auto) 7.0, Lymph # (Auto) 2.7, Riley # (Auto) 1.0, Eos # (Auto) 0.2, Baso # (Auto) 0.1 07/20/20 05:40: Sodium 131 L, Potassium 4.7 D, Chloride 97 L, Carbon Dioxide 30 D, Anion Gap 8.7, BUN 28 H D, Creatinine 1.30 H D, Estimated Creat Clear 41, Estimated GFR 39 L, Est GFR ( Amer) 47 L D, Glucose 118 H, Calcium 8.0 L D I & O for Last 24 hours: Intake & Output 07/17/20 07/18/20 07/19/20 07/20/20 23:59 23:59 23:59 23:59 Intake Total 1280 / 1280 1080 / 1080 Output Total 1000 / 1000 350 / 350 50 / 50 Balance 280 / 280 730 / 730 -50 / -50 Weight 176 lb 9 oz 176 lb 8.986 oz 176 lb 5.917 oz 180 lb 3 oz Narrative: Telemetry strip is atrial fibrillation with a rate of 96. - Constitutional no acute distress, obese - *Routine HEENT Exam Head: Present: normocephalic, atraumatic Eye: Present: EOMI, PERRL ENT: Present: mucous membranes moist - *Routine Neck Exam Present: supple, full ROM, normal carotid upstroke. Absent: JVD, carotid bruit, lymphadenopathy - *Routine Respiratory Exam Present: CTA bilaterally - *Routine Cardiovascular Exam Present: Normal S1, Normal S2, murmur, irregularly irregular - *Routine Abdominal Exam Present: soft, normoactive bowel sounds. Absent: tenderness, distended - *Routine Extremities Exam Present: full ROM, pulses intact, normal capillary refill. Absent: cyanosis, clubbing, edema - *Routine Skin Exam Present: intact, warm. Absent: erythema, rash - *Routine Neurological Exam Present: alert, oriented X3, CN II-XII intact. Absent: sensory deficit, motor deficit Progress Note: A&P (1) New onset atrial fibrillation Status: Acute (2) CHF exacerbation Status: Acute (3) Anxiety Status: Acute (4) Anemia Status: Acute (5) Obesity (BMI 30-39.9) Status: Acute (6) Cardiomyopathy Status: Acute (7) HTN (hypertension) Status: Chronic (8) SOB (shortness of breath) Status: Acute (9) CAD (coronary artery disease) Status: Chronic (10) Renal insufficiency Status: Acute Assessment and Plan for All Diagnoses:: plan: 1. The patient was admitted to the hospital and found to be in new onset atrial fibrillation. The patient denied any palpitations or racing of the heart. Her carvedilol was increased yesterday but her heart rate still
--- NOTE | 2020-07-20 09:23 | HMH.ACPN2 ---
Internal Medicine - PN: Subj *Date: 07/20/20 *Time: 11:48 Interval history: 85-year-old female patient sitting up in bed no respiratory distress noted. She does report difficulty swallowing and frequent coughing during and after meals, she reports this has been going on for years and has never mentioned it to anyone. She does report she is feeling better today overall. Exam Vital signs and Labs for Last 24 Hours: Temp Pulse Resp BP Pulse Ox 98.4 F 107 H 18 127/72 89 L 07/20/20 07:29 07/20/20 07:29 07/20/20 08:09 07/20/20 07:29 07/20/20 07:29 Laboratory Results - last 24 hr 07/20/20 05:40: WBC 10.8, RBC 3.32 L, Hgb 9.5 L, Hct 31.0 L, MCV 93.4, MCH 28.6, MCHC 30.7 L, RDW 15.7, Plt Count 249, MPV 8.5, Neut % (Auto) 64.1, Lymph % (Auto) 24.7, Motley % (Auto) 9.0, Eos % (Auto) 1.5, Baso % (Auto) 0.6, Neut # (Auto) 7.0, Lymph # (Auto) 2.7, Motley # (Auto) 1.0, Eos # (Auto) 0.2, Baso # (Auto) 0.1 07/20/20 05:40: Sodium 131 L, Potassium 4.7 D, Chloride 97 L, Carbon Dioxide 30 D, Anion Gap 8.7, BUN 28 H D, Creatinine 1.30 H D, Estimated Creat Clear 41, Estimated GFR 39 L, Est GFR ( Amer) 47 L D, Glucose 118 H, Calcium 8.0 L D I & O for Last 24 hours: Intake & Output 07/17/20 07/18/20 07/19/20 07/20/20 23:59 23:59 23:59 23:59 Intake Total 1280 / 1280 1080 / 1080 Output Total 1000 / 1000 350 / 350 50 / 50 Balance 280 / 280 730 / 730 -50 / -50 Weight 176 lb 9 oz 176 lb 8.986 oz 176 lb 5.917 oz 180 lb 3 oz - Constitutional no acute distress - *Routine HEENT Exam Head: Present: normocephalic Eye: Present: EOMI ENT: Present: mucous membranes moist - *Routine Respiratory Exam Present: CTA bilaterally. Absent: accessory muscle use - *Routine Cardiovascular Exam Present: murmur, irregularly irregular - *Routine Abdominal Exam Present: soft, normoactive bowel sounds. Absent: tenderness, firm - *Routine Extremities Exam Present: full ROM, pulses intact. Absent: cyanosis, edema, calf tenderness - *Routine Skin Exam Present: intact, dry, warm. Absent: cyanosis, erythema - *Routine Neurological Exam Present: alert, oriented X3. Absent: motor deficit, pronator drift - Routine Psychiatric Exam Present: normal affect, normal thought process, cooperative. Absent: auditory hallucinations, visual hallucinations Assessment and Plan (1) New onset atrial fibrillation Status: Acute Category: Medical Code(s): I48.91 - Unspecified atrial fibrillation (2) CHF exacerbation Status: Acute Qualifiers: Heart failure type: unspecified Qualified Code(s): I50.9 - Heart failure, unspecified Category: Medical Code(s): I50.9 - Heart failure, unspecified (3) Anxiety Status: Acute Category: Medical Code(s): F41.9 - Anxiety disorder, unspecified (4) Anemia Status: Acute Qualifiers: Anemia type: unspecified type Qualified Code(s): D64.9 - Anemia, unspecified Category: Medical Code(s): D64.9 - Anemia, unspecified (5) Obesity (BMI 30-39.9) Status: Acute Category: Medical Code(s): E66.9 - Obesity, unspecified (6) Cardiomyopathy Status: Acute Category: Medical Code(s): I42.9 - Cardiomyopathy, unspecified (7) HTN (hypertension) Status: Chronic Qualifiers: Hypertension type: essential hypertension Qualified Code(s): I10 - Essential (primary) hypertension Category: Medical Code(s): I10 - Essential (primary) hypertension (8) SOB (shortness of breath) Status: Acute Category: Medical Code(s): R06.02 - Shortness of breath (9) CAD (coronary artery disease) Status: Chronic Qualifiers: Coronary Disease-Associated Artery/Lesion type: [place] artery [place] vs. transplanted heart: [place] heart Associated angina: without angina Qualified Code(s): I25.10 - Atherosclerotic heart disease of [place] coronary artery without angina pectoris Category: Medical Code(s): I25.10 - Atherosclerotic heart disease of [place] coronary
--- NOTE | 2020-07-20 09:24 | XR_ITS ---
PROCEDURE: XR CHEST AP CLINICAL HISTORY: SOA COMPARISON: CR XR CHEST 2V from 07/17/2020 FINDINGS: Cardiomegaly with mild pulmonary venous congestion which is shown some improvement. There are small bilateral pleural effusions. Spinal stimulator device once again noted Severe degenerative changes of the shoulders as before. IMPRESSION: CHF slightly improved with small bilateral effusions Dictated by: Thanh Galo MD 07/20/2020 10:02 Thanh Galo MD in OV 07/20/2020 10:02
--- NOTE | 2020-07-20 10:21 | SW/DCPLANNER ---
Addendum entered by [facility] 07/30/20 09:42: The plan is for this patient to discharge to [facility] on Sunday08/02/20. I have updated Mona with [facility] and patients daughter (Nereida). Mona will arrange completion of paperwork with daughter today. Addendum entered by [facility] 07/29/20 12:33: Mona with [facility] has called and stated that due to guidelines being misread by staff they can now not accept this patient till 14 days after symptoms began which will be Sunday08/02/20. Dr Alamo has stated that patient will be ready for discharge tomorrow pending no setbacks. Due to these changes patient information has been faxed to Brea at [facility]. [facility]. Addendum entered by [facility] 07/29/20 09:51: Updated patients family and [facility] that the plan is to discharge to [facility] tomorrow pending no setbacks. Addendum entered by [facility] 07/28/20 09:22: Updated patient information faxed to [facility]. Addendum entered by [facility] 07/27/20 11:54: Frances with [facility] has stated they can accept this patient once medically stable for discharge. I will inform patients family and MD. I have informed Frances that this patient will not be ready for discharge till the end of the week. Frances has confirmed that this patient can have bi-pap in evenings at [facility]. Addendum entered by [facility] 07/26/20 14:29: Mona Feliz is currently reviewing this patients information. [facility] can not accept patients till 21 days after first COVID+ swab. [facility] and [facility] can accept patient 10 days after symptoms begin. I will follow up with [facility] and patients family tomorrow. Discharge date is unknown at this time. Addendum entered by [facility] 07/26/20 11:27: I have spoke with patients daughter (Ema) regarding plans once patient is medically stable for discharge. Ema has now stated that patient will need rehab placement once ready to discharge. Ema has stated that she is interested in [facility]. Patient information has been faxed to [facility] will accept COVID + patients once they are 10 days out from when symptoms began (07/19/20). I will also follow up with [facility] and [facility] to ask if they will accept COVID + patients. Patient is NOT ready for discharge at this time. Original Note: I have spoke with this patients daughter regarding plans once medically stable for discharge. Daughter stated that patient has assistance at home from family and there are several family members in and out of patients home daily. Daughter stated that patient has been to placement in the past and did not do well. Daughter stated that she would prefer patient return home with home health services. Patient has previously used [facility] for home health services. Discharge date is unknown at this time. I will continue to follow up with this patients family and MD until medically stable for discharge.
--- NOTE | 2020-07-20 11:00 | HMH.PULMCON ---
*Admission Date: 07/18/20 *Reason for consult:: Shortness of breath *History of present illness: Ms. Crow is a 85-year-old male with no significant smoking history, using Spiriva on an outpatient basis, on 2 L nasal cannula for the last 1 year, follows a diagnosis of congestive heart failure presented to the ED complaining of worsening shortness of breath along with worsening lower extremity swelling along with elevated BNP and new onset atrial fibrillation and pulmonary was called to evaluate for any pulmonary etiology of her shortness of breath and for possible pneumonia [facility] History Medical History: Reports:: Anxiety, Asthma, Congestive Heart Failure, Chronic Obstructive Pulmonary Disease (COPD), Gastroesophageal Reflux Disease(GERD), Home Oxygen, Hypertension, Osteoporosis, Renal Insufficiency, Urinary Tract Infection Denies:: Cancer, Diabetes Mellitus Type 1, Diabetes Mellitus Type 2, MRSA *Have you ever received a pneumonia vaccine?: Yes *Have you received a flu vaccine this season?: Yes Other Medical History: Reports: Anemia, Cataracts, Hormone Therapy, Hypothyroidism, Osteoporosis, Thyroid Disease Laterality Cases: Right: Arthroscopy Shoulder Other Surgeries: Yes: Cardiac Catheterization, Cholecystectomy, Coronary Stent, Hysterectomy-Total Amputation: No Fractures: Yes - *Social History Last grade of school completed: 5th or 6th Smoking Status: Former smoker Tobacco Type: cigarettes # Packs/Day (cigarettes): 4 #Yrs smoked (if former smoker): 40 Smoking End Date: 11/24/1981 Alcohol Intake: never Substance Use Type: denies use *Occupational Status:: retired Housing: house Household Members: family *Travel in the last 8 weeks: None - Psychiatric History Pschychiatric History:: Reports:: Anxiety Family Hx:: Coronary Artery Disease, Stroke ROS - Cons Reports fatigue - Card Reports shortness of breath, Reports shortness of breath with activity, Reports irregular heart rhythm, Reports leg swelling - Resp Respiratory: Reports dyspnea on exertion, Denies excessive phlegm production, Denies cough with sputum production - GI Gastrointestingal: Denies: abdominal pain Meds Home Medications Medication Instructions Recorded Confirmed Type amlodipine 2.5 mg tablet 2.5 mg PO HS tab 02/24/20 07/17/20 History carvedilol 12.5 mg tablet 12.5 mg PO BID 02/24/20 07/17/20 History ergocalciferol (vitamin D2) 1,250 1,250 mcg PO QMONTH 02/24/20 07/17/20 History mcg (50,000 unit) capsule fluticasone propionate 50 1 spray INTRANASAL DAILY 02/24/20 07/17/20 History mcg/actuation nasal spray,suspension lisinopril 20 mg tablet 20 mg PO DAILY 02/24/20 07/17/20 History alprazolam 0.5 mg tablet 0.5 mg PO HS PRN #30 tab 06/25/20 07/17/20 Rx oxycodone-acetaminophen 5 mg-325 1 tab PO BID PRN #60 tab 06/25/20 07/17/20 Rx mg tablet tiotropium bromide 18 mcg capsule 1 cap INHALATION DAILY 06/25/20 07/17/20 History with inhalation device Clopidogrel Bisulfate [Plavix] 75 mg PO DAILY 07/17/20 07/18/20 History Fluoxetine HCl [Prozac] 20 mg PO DAILY 07/17/20 07/18/20 History Gabapentin [Gabapentin 100mg Cap] 100 mg PO BID 07/17/20 07/17/20 History Levothyroxine Sodium [Synthroid 112 mcg PO DAILY 07/17/20 07/18/20 History 112mcg (0.112mg) tablet] Methenamine Hippurate 1 gm PO BID 07/17/20 07/18/20 History Pantoprazole Sodium 40 mg PO DAILY 07/17/20 07/17/20 History estradioL [Estradiol] 0.5 mg PO DAILY 07/17/20 07/17/20 History predniSONE [Prednisone 5mg 5 mg PO Q48H 07/17/20 07/18/20 History Tab] Calcium Carbonate [Calcium] 600 mg PO BID 07/18/20 07/18/20 History Ferrous Sulfate [Iron 325mg Tab] 325 mg PO DAILY 07/18/20 07/18/20 History Fluticasone/Salmeterol [Advair 1 inh IH BID 07/18/20 07/18/20 History 100/50mcg diskus] Furosemide [Furosemide 20mg Tab*] 20 mg PO DAILYP PRN 07/18/20 07/18/20 History predniSONE [Deltasone 5mg 2.5 mg PO Q48H 07/18/20 07/18/20 History tablet] Allergies Allergy/AdvReac
--- NOTE | 2020-07-20 12:30 | HMH.SLDYSPHA ---
Speech & Language Evaluation Speech/Language Dysphagia Evaluation Start: 07/20/20 12:22 Freq: ONCE Status: Active Protocol: Document 07/20/20 12:22 MIGUEL ANGEL (Rec: 07/20/20 12:30 MIGUEL ANGEL [id number]) Dysphagia Assess/Goals/Plan Assessment Date of Evaluation: 07/20/20 Evaluation Type Initial Certification Assessment/Problems Dysphagia Does Patient Qualify for Service No Qualify/Failure Comment Diet modifications to be made. Therapy is not warranted. Recommendations PHYSICIAN CERTIFICATION: The specified therapy services are required, authorized, and reviewed every 30 days. Diet Recommendations Mechanical Soft Liquid Type Recommendations Normal/Thin SL Swallow Guidelines Standard Aspiration Prec. Dysphagia Swallow Precautions/Strategies Sitting Upright (90 deg),Small Bites and Sips,Alternate Liquids/Solids Plan Pt/Guardian verbally ack understanding Yes: RN notified of dx/prognosis/goals G -code Required No Speech & Language HPI Language Primary Language Kazakh General Information General Current Food Consistancy Regular,Thin Liquids Dentition Good Dentition Oxygen Status Nasal Cannula Facial Symmetry Symmetrical Patient Orientation Person,Place Ability to Follow Directions Good Communication Ability Mild Impairment Dysphagia:Food Presentation Evaluation Food Type Pureed,Mechanical Soft,Liquid, Pudding Dysphagia Evaluation Summary Ms. Fried was given the following consistencies: thins via straw and open cup, pudding, pureed, and mechanical soft. No signs of dysphagia were noted during evaluation. It is recommended he be placed on mechanical soft diet because of her respiratory status. Should problems continue, a MBS is recommended. At this time, ST is not warranted. Stroke Dysphagia Assessment PHYSICIAN CERTIFICATION: I certify the specified therapy services for Antonio Fried are required, authorized, and reviewed every 30 days.
--- NOTE | 2020-07-20 18:14 | PC.NURSE ---
Remains on 3 L nasal cannula, no s/s of resp distress. Pt does have a productive cough, often more-so at meal time. Noted this AM upon assessment while she was trying to eat her breakfast that pt was hacking and coughing up copious amounts of thick yellow sputum and food. When asked, pt states that she does this all the time at home, and that this is nothing new. PCP notified of this upon AM rounds, orders for CXR and speech therapy to see pt today. Sputum sent to lab for culture as well. Speech did see pt and made advisement for pt to be changed to [facility] soft diet, thin liquids. Since change pt has tolerated meals well, no c/o coughing or signs of aspiration. Pt sat up to chair majority of shift. PT requires assistance x1 w/ use of rolling walker when transferring. Participated w/ PT today, no complaints. Daughter @ bedside. Updated on plan of care. No needs voiced. Call jamie w/in reach.
[2020-07-20 23:57] LABS: ABG HCO3 25.5 mmhg (22.0-26.0); ABG Oxygen Saturation 99 % (90-100); ABG PCO2 40.6 mmhg (35.0-45.0); ABG PH 7.42 mmol/L (7.35-7.45); ABG PO2 164.2 mmhg (80-100); ABG TCO2 26.8 mmhg (23-27); Allen's Test Y; Oxygen 100 %; Source R/R
[2020-07-21] VITALS (24 sets, daily range): BP systolic 99–158; BP diastolic 43–94; PULSE 79–116; RESP 16–33; TEMP 36.7–38.2; O2SAT 83–100; BMI 34.0
[2020-07-21 00:05] LABS: Basophils # 0.1 K/mm3 (0-0.2); Basophils % 0.5 % (0.1-2.0); Eosinophils # 0.4 K/mm3 (0.0-0.4); Eosinophils % 2.6 % (0.1-12.0); Hematocrit 30.9 % (37.0-47.0); Hemoglobin 9.6 g/dL (12.2-16.2); Lymphocytes # 1.8 K/mm3 (0.7-4.5); Lymphocytes % 12.6 % (10-50); Mean Corpuscular HGB Conc 31.1 g/dL (31.8-35.4); Mean Corpuscular Hemoglobin 28.6 pg (27.0-31.2); Mean Corpuscular Volume 92.1 fl (81-99); Mean Platelet Volume 8.2 fl (7.4-10.4); Monocytes # 0.9 K/mm3 (0.1-1.0); Monocytes % 6.1 % (1.7-9.3); Neutrophils # 11.3 K/mm3 (1.8-7.8); Neutrophils % 78.2 % (37.0-80.0); Platelet Count 267 K/mm3 (142-424); Red Blood Count 3.36 M/mm3 (4.20-5.40); Red Cell Distribution Width 15.2 % (11.5-17.5); White Blood Count 14.5 K/mm3 (4.8-10.8)
[2020-07-21 00:20] LABS: Anion Gap 10.5 mEq/L (5-15); Blood Urea Nitrogen 38 mg/dl (7-17); Calcium 8.5 mg/dl (8.4-10.2); Carbon Dioxide 29 mmol/L (22.0-30.0); Chloride 98 mmol/L (98-107); Creatinine Clearance Estimated 25 mL/min (50-200); Estimated Glomerular Filt Rate 22 ml/min (>60); GFR (African American) 27 ML/MIN (>60); Glucose 138 mg/dl (74-100); Potassium 5.5 mmoL/L (3.5-5.1); Sodium 132 mmol/L (136-145)
--- NOTE | 2020-07-21 00:32 | XR_ITS ---
PROCEDURE INFORMATION: Exam: XR Chest Exam date and time: 07/21/2020 12:32 AM Age: 85 years old Clinical indication: Prior surgery; Surgery date: 6+ months; Surgery type: Neurostimulator; Patient HX: In PT that was admitted for chf exacerbation and new onset of afib. This am having shortness of breath; Additional info: SOB TECHNIQUE: Imaging protocol: XR of the chest. Views: 1 view. COMPARISON: CR XR CHEST AP 07/20/2020 9:35 AM FINDINGS: Tubes, catheters and devices: The epidural spinal stimulator markers in similar position. Lungs: Bilateral emphysematous changes. No consolidation. Pleural spaces: Unremarkable. No pleural effusion. No pneumothorax. Heart/Mediastinum: Unremarkable. No cardiomegaly. Vasculature: There is progressive mild improvements in the previously seen bilateral diffuse vascular/interstitial prominence and small bilateral pleural effusions. Calcification of the aortic knob. Bones/joints: Advanced bilateral shoulder osteoarthritic changes. No acute fracture. IMPRESSION: Mild interval improvement of bilateral pulmonary vascular/interstitial prominence and small bilateral effusions.
[2020-07-21 00:38] LABS: Troponin I < 0.01 ng/ml (0.00-0.034)
--- NOTE | 2020-07-21 04:43 | PC.NURSE ---
Pt is more confused tonight. She has had 2 episodes of desatting as low as in the upper 70s. At 2340, Pt was noted to desat to 79%. She was placed on NRB per RT for short period of time in order to recover. MD [place] was notified. New orders received. ABG, CBC, BMP, CXR. Pt O2 recovered and was titrated back down to 3L O2 NC. Pt has another episode of desaturation. O2 declined to mid 80s. O2 NC was titrated up to 4.5 L NC until pt recovered. She is currently on 3L O2 NC with sats in low 90s. Purewick remains in place. Urine has more of a reddish tint. notified. No other concerns. Call light within reach. Safety measures in place.Will continue to monitor.
[2020-07-21 06:09] LABS: Basophils # 0.1 K/mm3 (0-0.2); Basophils % 0.4 % (0.1-2.0); Eosinophils # 0.2 K/mm3 (0.0-0.4); Eosinophils % 0.9 % (0.1-12.0); Hematocrit 30.5 % (37.0-47.0); Hemoglobin 9.5 g/dL (12.2-16.2); Lymphocytes # 1.9 K/mm3 (0.7-4.5); Mean Corpuscular HGB Conc 31.2 g/dL (31.8-35.4); Mean Corpuscular Hemoglobin 28.6 pg (27.0-31.2); Mean Corpuscular Volume 91.7 fl (81-99); Mean Platelet Volume 8.6 fl (7.4-10.4); Monocytes # 1.1 K/mm3 (0.1-1.0); Monocytes % 6.3 % (1.7-9.3); Neutrophils # 13.8 K/mm3 (1.8-7.8); Neutrophils % 81.4 % (37.0-80.0); Platelet Count 241 K/mm3 (142-424); Red Blood Count 3.32 M/mm3 (4.20-5.40); Red Cell Distribution Width 15.1 % (11.5-17.5); White Blood Count 16.9 K/mm3 (4.8-10.8)
[2020-07-21 06:10] LABS: MANUAL DIFFERENTIAL MANUAL DIFFERENTIAL (MANUAL DIFF)
[2020-07-21 06:13] LABS: Chloride 96 mmol/L (98-107); Potassium 5.5 mmoL/L (3.5-5.1); Sodium 130 mmol/L (136-145)
[2020-07-21 06:16] LABS: Anion Gap 12.5 mEq/L (5-15); Blood Urea Nitrogen 44 mg/dl (7-17); Calcium 8.2 mg/dl (8.4-10.2); Carbon Dioxide 27 mmol/L (22.0-30.0); Creatinine Clearance Estimated 30 mL/min (50-200); Estimated Glomerular Filt Rate 27 ml/min (>60); GFR (African American) 32 ML/MIN (>60); Glucose 153 mg/dl (74-100)
--- NOTE | 2020-07-21 08:20 | PC.NURSE ---
PT PLACED ON VAPOTHERM 35L AND 100% SATS=91%
[2020-07-21 08:54] LABS: Hypochromasia 1+; Lymphocytes % 12 % (10-50); Monocytes % 4 % (2-9); Neutrophils % 84 % (42-76); Platelet Estimate Normal; Total Cells Counted 100
--- NOTE | 2020-07-21 09:08 | HMH.ACPN2 ---
Internal Medicine - PN: Subj *Date: 07/21/20 *Time: 19:58 Interval history: 85-year-old patient lying in bed she does report she had increased shortness of breath during the night and this morning. She did have T-max last night of 100.4, increased oxygen requirements, she is now on nonrebreather at 15 L will increase to Vapotherm if needed. Will CT lungs without contrast due to renal status Exam Vital signs and Labs for Last 24 Hours: Temp Pulse Resp BP Pulse Ox 99.1 F 116 H 16 129/65 91 L 07/21/20 04:00 07/21/20 08:04 07/21/20 04:00 07/21/20 04:00 07/21/20 08:20 Laboratory Results - last 24 hr 07/20/20 23:55: WBC 14.5 H D, RBC 3.36 L, Hgb 9.6 L, Hct 30.9 L, MCV 92.1, MCH 28.6, MCHC 31.1 L, RDW 15.2, Plt Count 267, MPV 8.2, Neut % (Auto) 78.2, Lymph % (Auto) 12.6, [place] % (Auto) 6.1, Eos % (Auto) 2.6, Baso % (Auto) 0.5, Neut # (Auto) 11.3 H, Lymph # (Auto) 1.8, [place] # (Auto) 0.9, Eos # (Auto) 0.4, Baso # (Auto) 0.1 07/20/20 23:55: Sodium 132 L, Potassium 5.5 H, Chloride 98, Carbon Dioxide 29, Anion Gap 10.5, BUN 38 H D, Creatinine 2.10 H D, Estimated Creat Clear 25, Estimated GFR 22 L, Est GFR ( Amer) 27 L D, Glucose 138 H, Calcium 8.5, Troponin I < 0.01 07/20/20 23:55: Specimen Source R/r, O2 % 100, ABG pH 7.42, ABG pCO2 40.6, ABG pO2 164.2 H, ABG HCO3 25.5, ABG Total CO2 26.8, ABG O2 Saturation 99, ABG Base Excess 1.0, Thanh Test Y 07/21/20 05:38: WBC 16.9 H, RBC 3.32 L, Hgb 9.5 L, Hct 30.5 L, MCV 91.7, MCH 28.6, MCHC 31.2 L, RDW 15.1, Plt Count 241, MPV 8.6, Neut % (Auto) 81.4 H, Lymph % (Auto) 11.0, [place] % (Auto) 6.3, Eos % (Auto) 0.9, Baso % (Auto) 0.4, Neut # (Auto) 13.8 H, Lymph # (Auto) 1.9, [place] # (Auto) 1.1 H, Eos # (Auto) 0.2, Baso # (Auto) 0.1, Total Counted 100, Neutrophils % (Manual) 84 H, Lymphocytes % (Manual) 12, Monocytes % (Manual) 4, Platelet Estimate Normal, Hypochromasia 1+ 07/21/20 05:38: Sodium 130 L, Potassium 5.5 H, Chloride 96 L, Carbon Dioxide 27, Anion Gap 12.5, BUN 44 H, Creatinine 1.80 H, Estimated Creat Clear 30, Estimated GFR 27 L, Est GFR ( Amer) 32 L, Glucose 153 H, Calcium 8.2 L I & O for Last 24 hours: Intake & Output 07/18/20 07/19/20 07/20/20 07/21/20 23:59 23:59 23:59 23:59 Intake Total 1280 / 1280 1080 / 1080 720 / 720 Output Total 1000 / 1000 350 / 350 350 / 350 250 / 250 Balance 280 / 280 730 / 730 370 / 370 -250 / -250 Weight 176 lb 8.986 oz 176 lb 5.917 oz 180 lb 3 oz 180 lb 8 oz Microbiology Reports for the Last 24 Hours: Microbiology 07/20/20 08:00 Sputum - Expectorated Sputum Gram Stain - Final - Constitutional mild distress - *Routine Respiratory Exam Present: rales - *Routine Cardiovascular Exam Present: irregularly irregular - *Routine Abdominal Exam Present: soft, normoactive bowel sounds. Absent: tenderness, distended - *Routine Extremities Exam Present: edema, full ROM, pulses intact. Absent: cyanosis, calf tenderness - *Routine Skin Exam Present: dry, warm. Absent: cyanosis, jaundice - *Routine Neurological Exam Present: alert, moving all extremities. Absent: motor deficit, hemineglect Assessment and Plan (1) New onset atrial fibrillation Status: Acute Category: Medical Code(s): I48.91 - Unspecified atrial fibrillation (2) CHF exacerbation Status: Acute Qualifiers: Heart failure type: unspecified Qualified Code(s): I50.9 - Heart failure, unspecified Category: Medical Code(s): I50.9 - Heart failure, unspecified (3) Anxiety Status: Acute Category: Medical Code(s): F41.9 - Anxiety disorder, unspecified (4) Anemia Status: Acute Qualifiers: Anemia type: unspecified type Qualified Code(s): D64.9 - Anemia, unspecified Category: Medical Code(s): D64.9 - Anemia, unspecified (5) Obesity (BMI 30-39.9) Status: Acute Category: Medical Code(s): E66.9 - Obesity, unspecified (6) Cardiomyopathy Status: Acute Category: Medical Code(s): I42.9 - Cardiomyopathy, uns
--- NOTE | 2020-07-21 10:04 | HMH.PNCARD ---
Subjective Date: 07/21/20 Time: 09:45 Principal diagnosis: Afib, chf Interval history: This is an 85-year-old white female who presented to the emergency department with complaints of shortness of breath that has been progressively worsened for approximately a week before her admission. On admission the patient was found to have a BNP of 15,900 and was also found to be in new onset atrial fibrillation. The patient was treated with IV Lasix in the emergency department and then started on oral Lasix and spironolactone. She states that her shortness of breath had significantly improved yesterday. But she was complaining of a cough and difficulty swallowing her food. She reported that this has been ongoing for quite some time and states that whenever she tries to eat she gets coughing fits and causes her to be unable to eat. Yesterday she denied any chest pain or pressure as well. The patient remains in atrial fibrillation and she was started on oral diltiazem yesterday because her rate was a little higher than we would like. Today the patient had recurrence of her shortness of breath. Her nurse reports that she was drinking some orange juice and became very symptomatic with coughing and shortness of breath. She is now on a Vapotherm. The patient was tachycardic during this episode. There is concern that the patient may be aspirating due to her difficulty with swallowing. She does have a speech evaluation set up for today. She denies any chest pain or pressure today. She was short of breath this morning but does not appear to be short of breath while I am in examining her but she is not answering any of my other questions or following any commands this morning. She appears to be in no distress and her vital signs are stable at the time of my examination. Exam Vital signs and Labs for Last 24 Hours: Temp Pulse Resp BP Pulse Ox 99.1 F 116 H 16 129/65 91 L 07/21/20 04:00 07/21/20 08:04 07/21/20 04:00 07/21/20 04:00 07/21/20 08:20 Laboratory Results - last 24 hr 07/20/20 23:55: WBC 14.5 H D, RBC 3.36 L, Hgb 9.6 L, Hct 30.9 L, MCV 92.1, MCH 28.6, MCHC 31.1 L, RDW 15.2, Plt Count 267, MPV 8.2, Neut % (Auto) 78.2, Lymph % (Auto) 12.6, [place] % (Auto) 6.1, Eos % (Auto) 2.6, Baso % (Auto) 0.5, Neut # (Auto) 11.3 H, Lymph # (Auto) 1.8, [place] # (Auto) 0.9, Eos # (Auto) 0.4, Baso # (Auto) 0.1 07/20/20 23:55: Sodium 132 L, Potassium 5.5 H, Chloride 98, Carbon Dioxide 29, Anion Gap 10.5, BUN 38 H D, Creatinine 2.10 H D, Estimated Creat Clear 25, Estimated GFR 22 L, Est GFR ( Amer) 27 L D, Glucose 138 H, Calcium 8.5, Troponin I < 0.01 07/20/20 23:55: Specimen Source R/r, O2 % 100, ABG pH 7.42, ABG pCO2 40.6, ABG pO2 164.2 H, ABG HCO3 25.5, ABG Total CO2 26.8, ABG O2 Saturation 99, ABG Base Excess 1.0, Thanh Test Y 07/21/20 05:38: WBC 16.9 H, RBC 3.32 L, Hgb 9.5 L, Hct 30.5 L, MCV 91.7, MCH 28.6, MCHC 31.2 L, RDW 15.1, Plt Count 241, MPV 8.6, Neut % (Auto) 81.4 H, Lymph % (Auto) 11.0, [place] % (Auto) 6.3, Eos % (Auto) 0.9, Baso % (Auto) 0.4, Neut # (Auto) 13.8 H, Lymph # (Auto) 1.9, [place] # (Auto) 1.1 H, Eos # (Auto) 0.2, Baso # (Auto) 0.1, Total Counted 100, Neutrophils % (Manual) 84 H, Lymphocytes % (Manual) 12, Monocytes % (Manual) 4, Platelet Estimate Normal, Hypochromasia 1+ 07/21/20 05:38: Sodium 130 L, Potassium 5.5 H, Chloride 96 L, Carbon Dioxide 27, Anion Gap 12.5, BUN 44 H, Creatinine 1.80 H, Estimated Creat Clear 30, Estimated GFR 27 L, Est GFR ( Amer) 32 L, Glucose 153 H, Calcium 8.2 L I & O for Last 24 hours: Intake & Output 07/18/20 07/19/20 07/20/20 07/21/20 23:59 23:59 23:59 23:59 Intake Total 1280 / 1280 1080 / 1080 720 / 720 Output Total 1000 / 1000 350 / 350 350 / 350 250 / 250 Balance 280 / 280 730 / 730 370 / 370 -250 / -250 Weight 176 lb 8.986 oz 176 lb 5.917 oz 180 lb 3 oz 180 lb 8 oz Microbiology Reports for the Last 24 Hours: Microbiology 07/20/20 08:00 Sputum - Expectorated Sputum Gram Stain - Final
[2020-07-21 11:27] LABS: NT Pro Brain Natriuretic Pep. 12400 pg/mL (0-450)
[2020-07-21 11:34] LABS: Procalcitonin 0.171 ng/mL (0.0-2.0)
[2020-07-21 12:56] LABS: ABG Base Excess 0.8 mmol/L (-2.4-2.3); ABG HCO3 25.8 mmhg (22.0-26.0); ABG Oxygen Saturation 80 % (90-100); ABG PCO2 43.7 mmhg (35.0-45.0); ABG PH 7.39 mmol/L (7.35-7.45); ABG TCO2 27.1 mmhg (23-27)
[2020-07-21 13:07] LABS: D-Dimer 0.93 ug/mL (0.0-0.5)
[2020-07-21 14:16] LABS: Appearance,Urine/Cath CLEAR (Clear); Bilirubin,Cath Negative (Negative); Blood, Urine/Cath TRACE-I (Negative); Color,Urine/Cath YELLOW (Yellow); Glucose,Urine/Cath (UA) Negative (Negative); Ketones,Urine/Cath Negative (Negative); Leukocyte Esterase,Cath Negative (Negative); Microscopic,Cath URINE MICROSCOPIC (MICROSCOPIC); Nitrate,Cath POSITIVE (Negative); PH,Urine/Cath 5.5 (5.0-8.5); Protein,Urine/Cath Negative (Negative)
[2020-07-21 14:23] LABS: Squamous Epithelial Ur./Cath Occasional #/hpf (0-5)
--- NOTE | 2020-07-21 14:54 | HMH.PHAHEP ---
<Griselda Chance - Last Filed: 07/26/20 09:21> [facility] Pharmacy Heparin Dosing - Demographic Data Allergies/Adverse Reactions: Allergies Allergy/AdvReac Type Severity Reaction Status Date / Time cefuroxime [From Ceftin] Allergy Intermediate Verified 06/25/20 16:09 ciprofloxacin [From Cipro] Allergy Intermediate rash Verified 06/25/20 16:09 doxycycline Allergy Intermediate Verified 06/25/20 16:09 NSAIDS (Non-Steroidal Allergy Intermediate Verified 06/25/20 16:09 Anti-Inflamma aspirin Allergy Mild asthma Verified 06/25/20 16:09 attack sulfamethoxazole Allergy Mild rash Verified 06/25/20 16:09 [From Bactrim] trimethoprim [From Bactrim] Allergy Mild rash Verified 06/25/20 16:09 vancomycin Allergy Mild rash Verified 06/25/20 16:09 - Indication Patient Problems: Current Active Problems New onset atrial fibrillation (Acute) CHF exacerbation (Acute) Acute and chronic respiratory failure with hypoxia (Acute) SOB (shortness of breath) (Acute) Hypokalemia (Acute) Cardiomyopathy (Acute) History of COPD (Acute) Anemia (Acute) Obesity (BMI 30-39.9) (Acute) Hypomagnesemia (Acute) Dysphagia (Acute) COVID-19 with pulmonary comorbidity (Acute) CAD (coronary artery disease) (Chronic) HTN (hypertension) (Chronic) Anxiety (Acute) Renal insufficiency (Acute) - Labs Anticoagulation Lab Results:: 07/23/20 06:03 Hgb 8.7 L Hct 27.6 L Plt Count 192 - Monitoring Dose Monitor 11 Date: 07/22/20 Time: 20:00 PTT Result:: 49.8 Infusion Rate:: INCREASED TO 1350 UNITS/HR => 27MLS/HR Dose Monitor 12 Date: 07/23/20 Time: 01:00 PTT Result:: 48.3 Infusion Rate:: INCREASE TO 1450 UNITS/HR => 29MLS/HR Comment:: BOLUS 3,000 UNITS ORDERED Dose Monitor 13 Date: 07/23/20 Time: 06:00 PTT Result:: 47.5 Infusion Rate:: INCREASED RATE BY ~2 UNITS/KG/HR TO 1600 UNITS/HR => 32MLS/HR Comment:: BOLUS 3,000 UNITS GIVEN, SPOKE WITH DR ROCHE, CONTINUE HEPARIN DRIP Dose Monitor 14 Date: 07/23/20 Time: 11:00 PTT Result:: 93.3, REDUCE RATE BY 2 UNITS/KG/HR Infusion Rate:: 1450 UNITS/HR => 29 MLS/HR, CALLED BAR RN Dose Monitor 19 Date: 07/26/20 Time: 08:00 PTT Result:: 89.9, REDUCE RATE BY 2 UNITS/KG/HR Infusion Rate:: 1300 UNITS.HR => 26MLS/HR - Core Measures Most Recent Labs:: Laboratory Results - last 24 hr 07/22/20 14:15: APTT 64.9 H* D 07/22/20 14:15: Sodium 131 L, Potassium 4.9, Chloride 99, Carbon Dioxide 26, Anion Gap 10.9, BUN 58 H, Creatinine 2.20 H, Estimated Creat Clear 24, Estimated GFR 21 L, Est GFR ( Amer) 26 L, Glucose 121 H D, Calcium 8.3 L, Total Bilirubin 0.7, AST 12 L, ALT 7 L, Alkaline Phosphatase 64, Total Protein 5.5 L, Albumin 2.8 L, Globulin 2.7, Albumin/Globulin Ratio 1.0 L 07/22/20 20:20: APTT 49.8 H D 07/23/20 01:03: APTT 48.3 H 07/23/20 06:03: WBC 8.8 D, RBC 3.04 L, Hgb 8.7 L, Hct 27.6 L, MCV 90.8, MCH 28.4, MCHC 31.3 L, RDW 14.8, Plt Count 192, MPV 8.8, Neut % (Auto) 90.4 H, Lymph % (Auto) 5.9 L, [place] % (Auto) 3.2, Eos % (Auto) 0.4, Baso % (Auto) 0.1, Neut # (Auto) 8.0 H, Lymph # (Auto) 0.5 L, [place] # (Auto) 0.3, Eos # (Auto) 0.0, Baso # (Auto) 0.0, Total Counted 100, Neutrophils % (Manual) 91 H, Lymphocytes % (Manual) 5 L, Monocytes % (Manual) 4, Platelet Estimate Normal, Hypochromasia 1+ 07/23/20 06:03: Sodium 132 L, Potassium 5.1, Chloride 97 L, Carbon Dioxide 24, Anion Gap 16.1 H, BUN 71 H, Creatinine 2.10 H, Estimated Creat Clear 25, Estimated GFR 22 L, Est GFR ( Amer) 27 L, Glucose 182 H D, Calcium 8.4 07/23/20 06:03: APTT 47.5 H 07/23/20 08:44: Specimen Source L radial, O2 % 50, ABG pH 7.35, ABG pCO2 45.3 H, ABG pO2 99.4, ABG HCO3 24.6, ABG Total CO2 26.0, ABG O2 Saturation 97, ABG Base Excess -0.9, Thanh Test Acceptable, Tidal Volume 16/10 bipap <Demond Noonan - Last Filed: 07/27/20 08:12> [facility] Pharmacy Heparin Dosing - Demographic Data Admission date:: 07/17/20 Date: 07/21/20 Time:
--- NOTE | 2020-07-21 15:44 | PC.NURSE ---
Addendum entered by Courtney Leal RN 07/21/20 19:41: WHEN WAS AT BEDSIDE HE EXPLAINED TO FAMILY THAT HE WANTED PT TO HAVE A CT OF THE CHEST BUT PT IS NOT STABLE ENOUGH TO TOLERATE GOING DOWN FOR CT AT THIS TIME. Original Note: THIS MORNING DURING REPORT HANDOFF PT'S O2 SATURATION DROPPED TO THE 70'S. WHEN ENTERING THE ROOM PT HAD THICK PHLEGM AND ORANGE JUICE ON HER CHEST. PT WAS ASKED IF SHE HAD CHOKED ON THE ORANGE JUICE AND SHE STATED SHE HAD NOT EVEN SWALLOWED ANY ORANGE JUICE. O2 NC WAS INCREASED TO 5 L O2 SATURATON WAS STILL MAINTAINING IN THE 70'S. PT WAS PUT ON THE NON REBREATHER AND REMAINED ON THE NON REBREATHER UNTIL PCP ARRIVED TO THE FLOOR FOR ROUNDS. O2 SATURATION WAS MAINTAINING 82-85% ON THE 100% NON REBREATHER. RESPIRATORY NOTIFIED FOR BREATHING TREATMENT AND INHALERS WITH NO IMPROVEMENT OF O2 SATURATION. PCP AT BEDSIDE AND PT STATED SHE WAS FEELING BAD. PCP ORDERED FOR PT TO BE ON VAPOTHERM. PT WAS ABLE TO REST FOR A COUPLE OF HOURS ON VAPOTHERM WITH O2 SATURATION MAINTAINING IN THE LOW 90'S. AROUND 1200 O2 SATURATION DROPPED TO THE 70'S. RT NOTIFIED AND TO TITRATE THE VAPOTHERM AND GIVE BREATHING TREATMENT WITH NO CHANGE IN O2 SATURATION. PT'S DAUGHTER AT BEDSIDE AT THE TIME. NOTIFIED AND HE ORDERED BLOOD GAS AND WANTED PT TO GO ON BIPAP. ARRIVED WHILE RT WAS COMPLETING BLOOD GAS TO SEE HOW PT WAS DOING AND TO TALK TO PT'S DAUGHTER. NEW ORDERS RECEIVED FROM (BLOOD CULTURES, LACTIC, ALMAZAN CATHETER, URINE CULTURE, LASIX 80 MG IV ONE TIME, HEPARIN DRIP AND PT NEEDED TO BE TRANSFERRED TO STEP DOWN UNIT.) PT WAS TRANSFERRED TO 216. HEPARIN DRIP STARTED. O2 SATURATION 91-96% ON BIPAP AND PT IS RESTING WITH FAMILY AT BEDSIDE. AFIB ON THE MONITOR. VSS. PT HAS BEEN TURNED AND REPOSITIONED. ORAL CARE PROVIDED. PT'S BLADDER WAS SCANNED BEFORE ALMAZAN WAS INSERTED AND SHE ONLY HAD 89 ML'S OF URINE IN HER BLADDER. ON ASSESSMENT THIS MORNING LUNG SOUNDS DIMINISHED WITH COURSE CRACKLES. ABDOMEN SOFT/NON TENDER WITH ACTIVE BOWEL SOUNDS. SCATTERED BRUISING. PT WAS HAVING ISSUES WITH SWALLOWING HER MEDICINES THIS MORNING EVEN THOUGH THEY WERE CRUSHED IN APPLESAUCE. SPEECH AT BEDSIDE AND STATED PT REALLY NEEDS A MODIFIED BUT IS NOT STABLE ENOUGH FOR IT AT THIS TIME AND ACCORDING TO PT'S DAUGHTER THEY ATTEMPTED TO PUT PT ON NECTAR THICK LIQUIDS/PUREED DIET IN THE PAST WHEN SHE HAD ISSUES WITH SWALLOWING AND SHE REFUSED TO EAT AND DRINK SO THAT WOULD NOT BE AN OPTION FOR PT.
--- NOTE | 2020-07-21 16:08 | DIET.NUTRFU ---
PO intakes 50-75% until today when pt had possible aspiration at breakfast, she refused lunch as well. [facility] DRIVER has seen her and recommended MBS when pt is able to have procedure performed. Currently on 2g Na/soft mechanical diet with thin liquids. Weight stable, bowel function normal. Encouragement/cueing at mealtimes and supplement offers appreciated.
[2020-07-21 16:31] LABS: Allen's Test Acceptable; Oxygen 100 %; Source Right Radial
[2020-07-21 16:33] LABS: ABG PO2 45.1 mmhg (80-100); Lactate Arterial 1.4 mmol/L (0.4-2.0)
[2020-07-21 17:13] LABS: Activated Partial Thrombo Time 136.4 seconds (22.8-30.6)
[2020-07-21 18:59] LABS: Activated Partial Thrombo Time 134.1 seconds (22.8-30.6)
[2020-07-21 20:41] LABS: POC Glucose,Bedside 205 (70-110)
--- NOTE | 2020-07-21 22:09 | PC.NURSE ---
She does not answer any questions. Opens eyes to light pain. Continues on bipap at 100% FiO2. Afib on telemetry. Her daughter is at the bedside.
[2020-07-21 22:17] LABS: Activated Partial Thrombo Time 102.6 seconds (22.8-30.6)
[2020-07-22] VITALS (18 sets, daily range): BP systolic 92–138; BP diastolic 42–67; PULSE 66–96; RESP 1–20; TEMP 36.6–38; O2SAT 93–100; BMI 34.0
[2020-07-22 00:29] LABS: Activated Partial Thrombo Time 57.4 seconds (22.8-30.6)
--- NOTE | 2020-07-22 01:37 | PC.NURSE ---
O2 was 100%-bipap weaned to 90% and continues to have 100% FiO2 sat.
[2020-07-22 04:27] LABS: Basophils % 0.1 % (0.1-2.0); Eosinophils # 0.1 K/mm3 (0.0-0.4); Eosinophils % 0.4 % (0.1-12.0); Hemoglobin 9.4 g/dL (12.2-16.2); Lymphocytes # 1.3 K/mm3 (0.7-4.5); Lymphocytes % 5.9 % (10-50); Mean Corpuscular HGB Conc 30.3 g/dL (31.8-35.4); Mean Corpuscular Hemoglobin 28.4 pg (27.0-31.2); Mean Corpuscular Volume 93.8 fl (81-99); Mean Platelet Volume 8.9 fl (7.4-10.4); Monocytes # 0.9 K/mm3 (0.1-1.0); Neutrophils # 20.1 K/mm3 (1.8-7.8); Neutrophils % 89.5 % (37.0-80.0); Platelet Count 227 K/mm3 (142-424); Red Blood Count 3.31 M/mm3 (4.20-5.40); Red Cell Distribution Width 15.2 % (11.5-17.5); White Blood Count 22.4 K/mm3 (4.8-10.8)
[2020-07-22 04:33] LABS: Chloride 97 mmol/L (98-107); MANUAL DIFFERENTIAL MANUAL DIFFERENTIAL (MANUAL DIFF); Sodium 133 mmol/L (136-145)
[2020-07-22 04:36] LABS: Blood Urea Nitrogen 53 mg/dl (7-17); Carbon Dioxide 27 mmol/L (22.0-30.0); Creatinine Clearance Estimated 27 mL/min (50-200); Estimated Glomerular Filt Rate 24 ml/min (>60); GFR (African American) 29 ML/MIN (>60)
[2020-07-22 04:37] LABS: Calcium 8.3 mg/dl (8.4-10.2); Glucose 176 mg/dl (74-100)
[2020-07-22 04:39] LABS: Activated Partial Thrombo Time 44.4 seconds (22.8-30.6)
[2020-07-22 05:47] LABS: Lymphocytes % 12 % (10-50); Neutrophils % 88 % (42-76); Total Cells Counted 100
[2020-07-22 05:48] LABS: Platelet Estimate Normal
[2020-07-22 05:49] LABS: Hypochromasia 1+
--- NOTE | 2020-07-22 08:00 | CT_ITS ---
PROCEDURE: CT CHEST WO CON CLINICAL INDICATION: SOA COMPARISON: CR XR CHEST PORTABLE from 07/22/2020 TECHNIQUE: Axial images obtained with sagittal and coronal reformats. All CT scans at the facility use one or more dose reduction, viz: automated exposure control, ma/kV adjustment per patient size (including targeted exams where dose is matched to indication, i.e. head), or iterative reconstruction technique. FINDINGS: HEART AND MEDIASTINAL STRUCTURES: Diffuse calcification noted of the aorta. Coronary artery calcifications also present. There are scattered small mediastinal lymph nodes and right hilar lymph nodes. Minimal thickening of the pericardium posteriorly. LUNGS AND PLEURAL SPACES: There is dense consolidation in the right lower lobe within the superior segment, anterior and posterior basilar segment. Consistent with pneumonia. There are some small areas somewhat irregular opacities in the right middle lobe and right upper lobe and may be due to areas of pneumonia. Consolidation is present in the left lower lobe posteriorly with small left-sided pleural effusion. BONY STRUCTURES: There is mild wedging of T11 age indeterminate UPPER ABDOMEN: There is mild stranding of the perinephric renal fat on both sides. See ADDITIONAL FINDINGS: No other significant abnormalities. IMPRESSION: Bilateral lower lobe consolidation right more extensive than left consistent with bilateral lower lobe pneumonia with small left pleural effusion. There are some irregular opacities in the right upper and right middle lobe which may be due to areas of pneumonia as well. Dictated by: Thanh Galo MD 07/22/2020 15:47 Thanh Galo MD in [place] 07/22/2020 15:48
--- NOTE | 2020-07-22 09:18 | XR_ITS ---
PROCEDURE: XR CHEST PORTABLE CLINICAL HISTORY: Hypoxia COMPARISON: CR XR CHEST 2V from 07/17/2020 CR XR CHEST AP from 07/20/2020 CR XR CHEST PORTABLE from 07/21/2020 FINDINGS: Cardiomegaly without failure. There is prominence of the arnel which may be vascular in nature. Consolidation is noted in both lower lobes right greater than left with small bilateral pleural effusions. Spinal stimulator device noted overlying the upper and midthoracic spine. IMPRESSION: Interval development of bilateral lower lobe airspace disease right greater than left consistent with pneumonia and/or volume loss with bilateral pleural effusions. Dictated by: Thanh Galo MD 07/22/2020 09:53 Thanh Galo MD in [place] 07/22/2020 09:53
[2020-07-22 09:27] LABS: Activated Partial Thrombo Time 45.2 seconds (22.8-30.6)
--- NOTE | 2020-07-22 09:44 | HMH.ACPN2 ---
Internal Medicine - PN: Subj *Date: 07/22/20 *Time: 08:00 Interval history: pt alert and answer questions, bipap Exam Vital signs and Labs for Last 24 Hours: Temp Pulse Resp BP Pulse Ox 100.4 F H 79 20 105/54 L 96 07/22/20 08:00 07/22/20 08:00 07/22/20 08:00 07/22/20 08:00 07/22/20 08:00 Laboratory Results - last 24 hr 07/21/20 05:38: NT-Pro-B Natriuret Pep 57726 H, Procalcitonin 0.171 07/21/20 12:32: D-Dimer 0.93 H 07/21/20 12:32: APTT 27.0 07/21/20 12:51: Specimen Source Right radial, O2 % 100, ABG pH 7.39, ABG pCO2 43.7, ABG pO2 45.1 L, ABG HCO3 25.8, ABG Total CO2 27.1 H, ABG O2 Saturation 80 L*, ABG Base Excess 0.8, Thanh Test Acceptable, ABG Lactate 1.4 07/21/20 13:55: Urine Color Yellow, Urine Appearance Clear, Urine pH 5.5, Ur Specific [place] 1.010, Urine Protein Negative, Urine Glucose (UA) Negative, Urine Ketones Negative, Urine Blood Trace-i, Urine Nitrate Positive, Urine Bilirubin Negative, Urine Urobilinogen 1.0, Ur Leukocyte Esterase Negative, Urine RBC 3-5, Urine WBC 3-5, Ur Squamous Epith Cells Occasional, Urine Bacteria None 07/21/20 16:25: APTT 136.4 H* D 07/21/20 17:25: APTT 138.0 H* 07/21/20 18:24: APTT 134.1 H* 07/21/20 19:13: APTT 120.0 H* D 07/21/20 20:34: POC Glucose 205 H 07/21/20 21:37: APTT 102.6 H* D 07/21/20 23:50: APTT 57.4 H* D 07/22/20 04:20: WBC 22.4 H* D, RBC 3.31 L, Hgb 9.4 L, Hct 31.0 L, MCV 93.8, MCH 28.4, MCHC 30.3 L, RDW 15.2, Plt Count 227, MPV 8.9, Neut % (Auto) 89.5 H, Lymph % (Auto) 5.9 L, [place] % (Auto) 4.0, Eos % (Auto) 0.4, Baso % (Auto) 0.1, Neut # (Auto) 20.1 H, Lymph # (Auto) 1.3, [place] # (Auto) 0.9, Eos # (Auto) 0.1, Baso # (Auto) 0.0, Total Counted 100, Neutrophils % (Manual) 88 H, Lymphocytes % (Manual) 12, Platelet Estimate Normal, Hypochromasia 1+ 07/22/20 04:20: Sodium 133 L, Potassium 5.0, Chloride 97 L, Carbon Dioxide 27, Anion Gap 14.0, BUN 53 H, Creatinine 2.00 H, Estimated Creat Clear 27, Estimated GFR 24 L, Est GFR ( Amer) 29 L, Glucose 176 H, Calcium 8.3 L 07/22/20 04:20: APTT 44.4 H D 07/22/20 09:03: APTT 45.2 H I & O for Last 24 hours: Intake & Output 07/19/20 07/20/20 07/21/20 07/22/20 11:59 11:59 11:59 11:59 Intake Total 900 / 900 840 / 840 480 / 480 629 / 629 Output Total 350 / 350 50 / 50 550 / 550 350 / 350 Balance 550 / 550 790 / 790 -70 / -70 279 / 279 Weight 176 lb 180 lb 3 oz 180 lb 8 oz 180 lb Microbiology Reports for the Last 24 Hours: Microbiology 07/20/20 08:00 Sputum - Expectorated Sputum Gram Stain - Final 07/20/20 08:00 Sputum - Expectorated Sputum Sputum Culture - Final Normal Respiratory Mona - Constitutional no acute distress, obese - *Routine HEENT Exam Head: Present: normocephalic Eye: Present: PERRL ENT: Present: mucous membranes moist - *Routine Neck Exam Present: supple. Absent: lymphadenopathy - *Routine Respiratory Exam Present: crackles, diminished air movement - *Routine Cardiovascular Exam Present: irregularly irregular - *Routine Abdominal Exam Present: soft, normoactive bowel sounds. Absent: tenderness - *Routine Extremities Exam Absent: cyanosis, clubbing, edema - *Routine Skin Exam Present: warm. Absent: rash - *Routine Neurological Exam Present: alert - Routine Psychiatric Exam Present: normal affect Assessment and Plan (1) New onset atrial fibrillation Status: Acute Category: Medical Code(s): I48.91 - Unspecified atrial fibrillation (2) CHF exacerbation Status: Acute Qualifiers: Heart failure type: unspecified Qualified Code(s): I50.9 - Heart failure, unspecified Category: Medical Code(s): I50.9 - Heart failure, unspecified (3) Anxiety Status: Acute Category: Medical Code(s): F41.9 - Anxiety disorder, unspecified (4) Anemia Status: Acute Qualifiers: Anemia type: unspecified type Qualified Code(s): D64.9 - Anemia, unspecified Category: Medical Code(s): D64.9 - Anemia, unspecifi
--- NOTE | 2020-07-22 09:52 | HMH.PNCARD ---
Subjective Date: 07/22/20 Time: 09:40 Principal diagnosis: Afib, chf Interval history: This is a 89-year-old white female presented to the emergency department complaints of shortness of breath that has been progressively worsening for approximately a week. The patient was found to be in CHF and new onset atrial fibrillation. She was diuresed with IV Lasix x1 dose and had significant diuresis. The patient was then switched to oral Lasix and her shortness of breath was continuing to improve. The patient's atrial fibrillation has been treated with Coreg and diltiazem ER. She is now rate controlled and she was started on Xarelto for long-term anticoagulation. She did tolerate these medications well. The patient had been having dysphagia and significant coughing with eating and she was unable to eat. The patient did have a bedside speech evaluation but was referred for modified barium swallow study. Yesterday the patient became significantly short of breath and coughing while drinking orange juice. The patient ended up on a Vapotherm and is now on a BiPAP. Because of her significant respiratory change yesterday the modified barium swallow study was unable to be obtained. She also has had a mental status change. The patient is not really answering any questions or following any commands. CT of the brain was ordered but because of her respiratory status she has been unable to have the CT of the brain completed at this time. Pulmonology is concerned that she may have a PE however VQ scan was not obtained because of her pulmonary status. The patient is going to try to be weaned off of the BiPAP today in order to undergo further testing with a VQ scan and CT of the brain. She appears to be in no distress this morning on the BiPAP. She does tell me that she is not having any chest pain or pressure when I asked that question. She does not answer any of my other questions or follow any of my other commands. Her vital signs are stable. Exam Vital signs and Labs for Last 24 Hours: Temp Pulse Resp BP Pulse Ox 100.4 F H 79 20 105/54 L 96 07/22/20 08:00 07/22/20 08:00 07/22/20 08:00 07/22/20 08:00 07/22/20 08:00 Laboratory Results - last 24 hr 07/21/20 05:38: NT-Pro-B Natriuret Pep 52809 H, Procalcitonin 0.171 07/21/20 12:32: D-Dimer 0.93 H 07/21/20 12:32: APTT 27.0 07/21/20 12:51: Specimen Source Right radial, O2 % 100, ABG pH 7.39, ABG pCO2 43.7, ABG pO2 45.1 L, ABG HCO3 25.8, ABG Total CO2 27.1 H, ABG O2 Saturation 80 L*, ABG Base Excess 0.8, Thanh Test Acceptable, ABG Lactate 1.4 07/21/20 13:55: Urine Color Yellow, Urine Appearance Clear, Urine pH 5.5, Ur Specific [place] 1.010, Urine Protein Negative, Urine Glucose (UA) Negative, Urine Ketones Negative, Urine Blood Trace-i, Urine Nitrate Positive, Urine Bilirubin Negative, Urine Urobilinogen 1.0, Ur Leukocyte Esterase Negative, Urine RBC 3-5, Urine WBC 3-5, Ur Squamous Epith Cells Occasional, Urine Bacteria None 07/21/20 16:25: APTT 136.4 H* D 07/21/20 17:25: APTT 138.0 H* 07/21/20 18:24: APTT 134.1 H* 07/21/20 19:13: APTT 120.0 H* D 07/21/20 20:34: POC Glucose 205 H 07/21/20 21:37: APTT 102.6 H* D 07/21/20 23:50: APTT 57.4 H* D 07/22/20 04:20: WBC 22.4 H* D, RBC 3.31 L, Hgb 9.4 L, Hct 31.0 L, MCV 93.8, MCH 28.4, MCHC 30.3 L, RDW 15.2, Plt Count 227, MPV 8.9, Neut % (Auto) 89.5 H, Lymph % (Auto) 5.9 L, [place] % (Auto) 4.0, Eos % (Auto) 0.4, Baso % (Auto) 0.1, Neut # (Auto) 20.1 H, Lymph # (Auto) 1.3, [place] # (Auto) 0.9, Eos # (Auto) 0.1, Baso # (Auto) 0.0, Total Counted 100, Neutrophils % (Manual) 88 H, Lymphocytes % (Manual) 12, Platelet Estimate Normal, Hypochromasia 1+ 07/22/20 04:20: Sodium 133 L, Potassium 5.0, Chloride 97 L, Carbon Dioxide 27, Anion Gap 14.0, BUN 53 H, Creatinine 2.00 H, Estimated Creat Clear 27, Estimated GFR 24 L, Est GFR ( Amer) 29 L, Glucose 176 H, Calcium 8.3 L 07/22/20 04:20: APTT 44.4 H D 07/22/20 09:03: APTT 45.2 H I & O for Last 24 hours: Intake & Outpu
--- NOTE | 2020-07-22 10:06 | HMH.PULMPN ---
Internal Medicine - PN: Subj *Date: 07/22/20 *Time: 10:06 Interval history: No acute respiratory vents overnight. Patient continued to remain on BiPAP, weaning O2 requirements. Exam - Constitutional Constitutional:: Present: no acute distress, comfortable - HENMT Exam HENMT: Present: normocephalic, cushingoid faces - Eye Exam Eyes:: Present: eyelids normal - Neck Exam Neck:: Present: normal visual inspection - Respiratory Exam Respiratory:: Present: respiratory distress, crackles. Absent: wheezing - Cardiovascular Exam Cardiac:: Present: S1, S2 - GI Exam GI:: Present: soft - Skin Exam Skin: Present: warm, no rash - Neurological Exam Neurological: Present: awake. Absent: alert, normal cognition - Extremities Exam Extremities: Present: no cyanosis, no clubbing, edema Assessment and Plan (1) New onset atrial fibrillation Status: Acute Category: Medical Code(s): I48.91 - Unspecified atrial fibrillation (2) CHF exacerbation Status: Acute Qualifiers: Qualified Code(s): I50.9 - Heart failure, unspecified Category: Medical Code(s): I50.9 - Heart failure, unspecified (3) Anxiety Status: Acute Category: Medical Code(s): F41.9 - Anxiety disorder, unspecified (4) Anemia Status: Acute Qualifiers: Qualified Code(s): D64.9 - Anemia, unspecified Category: Medical Code(s): D64.9 - Anemia, unspecified (5) Obesity (BMI 30-39.9) Status: Acute Category: Medical Code(s): E66.9 - Obesity, unspecified (6) Cardiomyopathy Status: Acute Category: Medical Code(s): I42.9 - Cardiomyopathy, unspecified (7) HTN (hypertension) Status: Chronic Qualifiers: Qualified Code(s): I10 - Essential (primary) hypertension Category: Medical Code(s): I10 - Essential (primary) hypertension (8) SOB (shortness of breath) Status: Acute Category: Medical Code(s): R06.02 - Shortness of breath (9) CAD (coronary artery disease) Status: Chronic Qualifiers: Qualified Code(s): I25.10 - Atherosclerotic heart disease of [place] coronary artery without angina pectoris Category: Medical Code(s): I25.10 - Atherosclerotic heart disease of [place] coronary artery without angina pectoris (10) Renal insufficiency Status: Acute Category: Medical Code(s): N28.9 - Disorder of kidney and ureter, unspecified (11) Dysphagia Status: Acute Category: Medical Code(s): R13.10 - Dysphagia, unspecified - Assessment and plan all Dx Assessment and Plan for all problems:: #Acute on chronic hypoxic respiratory failure: # Shortness of breath: 85-year-old female no significant smoking history, no personal history or family history of asthma or allergies, carries a diagnosis of congestive heart failure presented worsening CHF exacerbation and new onset atrial fibrillation. Patient also usilg 2 liters long-term oxygen therapy at home. Patient also using Spiriva along with albuterol as needed as per chart review however patient is not clear name of the inhaler but she is using an inhaler twice a day. Patient respiratory status gradually declined in the last 48 hours with oxygen requirements escalated from nasal cannula to high flow nasal cannula and eventually to BiPAP. Chest x-ray showed bilateral worsening infiltrates/worsening pleural effusions with atelectasis. Repeat BNP is still elevated at 12,000. Patient has been receiving Xarelto since admission for her atrial fibrillation. Etiology is upper worsening respiratory failure is likely a combination of aspiration pneumonia, CHF exacerbation and atelectasis. The possibility of PE cannot be completely ruled out given acute worsening of her symptoms, and as patient was receiving Xarelto, that was changed to heparin drip with bolus. Her VQ scan would be suboptimal given her decreased ventilation. We will hold off on obtaining CT PE protocol given her kidney function especially in case with [place]
--- NOTE | 2020-07-22 13:08 | CT_ITS ---
PROCEDURE: CT HEAD/BRAIN WO CON CLINICAL INDICATION: ams Altered mental status COMPARISON: No exams were available for comparison TECHNIQUE: Axial images obtained. All CT scans at the facility use one or more dose reduction, viz: automated exposure control, ma/kV adjustment per patient size (including targeted exams where dose is matched to indication, i.e. head), or iterative reconstruction technique. FINDINGS: No midline shift, mass effect, intracranial hemorrhage, hydrocephalus, or extra-axial fluid collection is evident. There is generalized atrophy with hypoattenuation of the periventricular white matter consistent with microangiopathic changes. The calvarium has an unremarkable appearance. No mastoid effusion. Air-fluid levels present in the sphenoid sinus with mild mucosal thickening of the left maxillary sinus and sphenoid sinus on the right. IMPRESSION: 1. No acute intracranial findings. 2. Sinus disease Dictated by: Thanh Galo MD 07/22/2020 15:40 Thanh Galo MD in [facility] 07/22/2020 15:40
[2020-07-22 14:38] LABS: Alanine Aminotransferase 7 U/L (12-78); Albumin Level 2.8 g/dl (3.5-5.0); Alkaline Phosphatase 64 U/L (38-126); Anion Gap 10.9 mEq/L (5-15); Aspartate Amino Transferase 12 U/L (14-36); Bilirubin,Total 0.7 mg/dl (0.2-1.3); Blood Urea Nitrogen 58 mg/dl (7-17); Calcium 8.3 mg/dl (8.4-10.2); Carbon Dioxide 26 mmol/L (22.0-30.0); Chloride 99 mmol/L (98-107); Creatinine Clearance Estimated 24 mL/min (50-200); Estimated Glomerular Filt Rate 21 ml/min (>60); GFR (African American) 26 ML/MIN (>60); Globulin 2.7 g/dL (1.3-3.2); Glucose 121 mg/dl (74-100); Potassium 4.9 mmoL/L (3.5-5.1); Sodium 131 mmol/L (136-145); Total Protein,Serum 5.5 g/dl (6.3-8.2)
[2020-07-22 15:00] LABS: Activated Partial Thrombo Time 64.9 seconds (22.8-30.6)
[2020-07-22 20:47] LABS: Activated Partial Thrombo Time 49.8 seconds (22.8-30.6)
--- NOTE | 2020-07-22 20:53 | PC.WOUNDNOTE ---
late entry: [address] Lopez and Chang rojas of pt positive covid results.
--- NOTE | 2020-07-22 21:19 | PC.NURSE ---
received call from home health clinical liaison pharmacist marielena adams, new order received for heparin drip titration and next lab draw.
[2020-07-23] VITALS (19 sets, daily range): BP systolic 104–144; BP diastolic 65–77; PULSE 87–120; RESP 14–22; TEMP 36.1–36.8; O2SAT 93–99; BMI 34.0
[2020-07-23 01:28] LABS: Activated Partial Thrombo Time 48.3 seconds (22.8-30.6)
--- NOTE | 2020-07-23 01:40 | PC.NURSE ---
received call from [facility] pharmacist order received to titrate heparin drip to 1450 and to infuse 3000 unit bolus.
[2020-07-23 06:18] LABS: Basophils % 0.1 % (0.1-2.0); Eosinophils % 0.4 % (0.1-12.0); Hematocrit 27.6 % (37.0-47.0); Hemoglobin 8.7 g/dL (12.2-16.2); Lymphocytes # 0.5 K/mm3 (0.7-4.5); Lymphocytes % 5.9 % (10-50); Mean Corpuscular HGB Conc 31.3 g/dL (31.8-35.4); Mean Corpuscular Hemoglobin 28.4 pg (27.0-31.2); Mean Corpuscular Volume 90.8 fl (81-99); Mean Platelet Volume 8.8 fl (7.4-10.4); Monocytes # 0.3 K/mm3 (0.1-1.0); Monocytes % 3.2 % (1.7-9.3); Neutrophils % 90.4 % (37.0-80.0); Platelet Count 192 K/mm3 (142-424); Red Blood Count 3.04 M/mm3 (4.20-5.40); Red Cell Distribution Width 14.8 % (11.5-17.5); White Blood Count 8.8 K/mm3 (4.8-10.8)
[2020-07-23 06:19] LABS: Chloride 97 mmol/L (98-107); Sodium 132 mmol/L (136-145)
[2020-07-23 06:20] LABS: Potassium 5.1 mmoL/L (3.5-5.1)
[2020-07-23 06:22] LABS: Blood Urea Nitrogen 71 mg/dl (7-17); Creatinine Clearance Estimated 25 mL/min (50-200); Estimated Glomerular Filt Rate 22 ml/min (>60); GFR (African American) 27 ML/MIN (>60)
[2020-07-23 06:23] LABS: Anion Gap 16.1 mEq/L (5-15); Calcium 8.4 mg/dl (8.4-10.2); Carbon Dioxide 24 mmol/L (22.0-30.0); Glucose 182 mg/dl (74-100)
[2020-07-23 06:49] LABS: MANUAL DIFFERENTIAL MANUAL DIFFERENTIAL (MANUAL DIFF)
[2020-07-23 07:28] LABS: Activated Partial Thrombo Time 47.5 seconds (22.8-30.6)
[2020-07-23 07:45] LABS: Lymphocytes % 5 % (10-50); Monocytes % 4 % (2-9); Neutrophils % 91 % (42-76); Total Cells Counted 100
[2020-07-23 07:46] LABS: Hypochromasia 1+; Platelet Estimate Normal
[2020-07-23 09:01] LABS: ABG Base Excess -0.9 mmol/L (-2.4-2.3); ABG HCO3 24.6 mmhg (22.0-26.0); ABG Oxygen Saturation 97 % (90-100); ABG PCO2 45.3 mmhg (35.0-45.0); ABG PH 7.35 mmol/L (7.35-7.45); ABG PO2 99.4 mmhg (80-100); Oxygen 50 %
[2020-07-23 09:02] LABS: Allen's Test ACCEPTABLE; Source L RADIAL
--- NOTE | 2020-07-23 10:29 | PC.NURSE ---
Addendum entered by Alyce De La Cruz RN 07/23/20 13:00: Orders from Dr. Lopez to wean FIO2 on BIPAP slowly, RT aware. Original Note: BIPAP FIO2 decreased to 40% @ 1000.
--- NOTE | 2020-07-23 10:49 | HMH.PNCARD ---
Subjective Date: 07/23/20 Time: 10:50 Principal diagnosis: Afib, chf Interval history: Nursing relate patient is now Covid positive. Patient is minimally responsive. Heart rate controlled in the 80-100 bpm range. Exam Vital signs and Labs for Last 24 Hours: Temp Pulse Resp BP Pulse Ox 96.9 F L 94 H 16 128/76 96 07/23/20 08:00 07/23/20 08:00 07/23/20 08:00 07/23/20 08:00 07/23/20 08:00 Laboratory Results - last 24 hr 07/22/20 14:15: APTT 64.9 H* D 07/22/20 14:15: Sodium 131 L, Potassium 4.9, Chloride 99, Carbon Dioxide 26, Anion Gap 10.9, BUN 58 H, Creatinine 2.20 H, Estimated Creat Clear 24, Estimated GFR 21 L, Est GFR ( Amer) 26 L, Glucose 121 H D, Calcium 8.3 L, Total Bilirubin 0.7, AST 12 L, ALT 7 L, Alkaline Phosphatase 64, Total Protein 5.5 L, Albumin 2.8 L, Globulin 2.7, Albumin/Globulin Ratio 1.0 L 07/22/20 20:20: APTT 49.8 H D 07/23/20 01:03: APTT 48.3 H 07/23/20 06:03: WBC 8.8 D, RBC 3.04 L, Hgb 8.7 L, Hct 27.6 L, MCV 90.8, MCH 28.4, MCHC 31.3 L, RDW 14.8, Plt Count 192, MPV 8.8, Neut % (Auto) 90.4 H, Lymph % (Auto) 5.9 L, [place] % (Auto) 3.2, Eos % (Auto) 0.4, Baso % (Auto) 0.1, Neut # (Auto) 8.0 H, Lymph # (Auto) 0.5 L, [place] # (Auto) 0.3, Eos # (Auto) 0.0, Baso # (Auto) 0.0, Total Counted 100, Neutrophils % (Manual) 91 H, Lymphocytes % (Manual) 5 L, Monocytes % (Manual) 4, Platelet Estimate Normal, Hypochromasia 1+ 07/23/20 06:03: Sodium 132 L, Potassium 5.1, Chloride 97 L, Carbon Dioxide 24, Anion Gap 16.1 H, BUN 71 H, Creatinine 2.10 H, Estimated Creat Clear 25, Estimated GFR 22 L, Est GFR ( Amer) 27 L, Glucose 182 H D, Calcium 8.4 07/23/20 06:03: APTT 47.5 H 07/23/20 08:44: Specimen Source L radial, O2 % 50, ABG pH 7.35, ABG pCO2 45.3 H, ABG pO2 99.4, ABG HCO3 24.6, ABG Total CO2 26.0, ABG O2 Saturation 97, ABG Base Excess -0.9, Thanh Test Acceptable, [place] Volume 16/10 bipap I & O for Last 24 hours: Intake & Output 07/20/20 07/21/20 07/22/20 07/23/20 11:59 11:59 11:59 11:59 Intake Total 840 / 840 480 / 480 629 / 629 825 / 825 Output Total 50 / 50 550 / 550 350 / 350 500 / 500 Balance 790 / 790 -70 / -70 279 / 279 325 / 325 Weight 180 lb 3 oz 180 lb 8 oz 180 lb 180 lb 9 oz Microbiology Reports for the Last 24 Hours: Microbiology 07/21/20 13:50 Urine,Catheterized Urine Culture - Preliminary NO GROWTH AFTER 24 HOURS 07/22/20 09:05 Nasopharyngeal Coronavirus COVID-19 PCR - Final 07/20/20 08:00 Sputum - Expectorated Sputum Gram Stain - Final 07/20/20 08:00 Sputum - Expectorated Sputum Sputum Culture - Final Normal Respiratory Mona Narrative: Not examined Progress Note: A&P (1) New onset atrial fibrillation Status: Acute (2) CHF exacerbation Status: Acute (3) Anxiety Status: Acute (4) Anemia Status: Acute (5) Obesity (BMI 30-39.9) Status: Acute (6) Cardiomyopathy Status: Acute (7) HTN (hypertension) Status: Chronic (8) SOB (shortness of breath) Status: Acute (9) CAD (coronary artery disease) Status: Chronic (10) Renal insufficiency Status: Acute (11) Dysphagia Status: Acute Assessment and Plan for All Diagnoses:: 1. A. fib with CVR, controlled on combo of carvedilol and diltiazem. Currently on heparin for anticoagulation with recommendation to switch to Xarelto when patient taking oral medication again. 2. History of cardiomyopathy but echocardiogram this admission shows ejection fraction 55% with no wall motion abnormalities. 3. Chronic kidney disease, currently stage IV 4. Aspiration pneumonia, per pulmonology 5. History of congestive heart failure with pleural effusions on chest films this admission, likely related to new onset atrial fibrillation. Low-dose Lasix was given earlier in the week with an increase in renal insufficiency. Continue to hold diuretics at this time 6. COVID-19, remdesivir and dexamethasone started per pulmonary.
--- NOTE | 2020-07-23 10:54 | DIET.NUTRFU ---
Pt has refused all nourishment since 07/21, Na restriction removed at this time and supplements TID on diet order. Pt requires assistance and encouragement/cueing at meal times. She may have any additional supplement/snacks by request/nursing offer. Please observe aspiration precautions. Per speech pt needs MBS, but is not stable enough at this time, continues on soft mechanical diet. Continuing to monitor.
[2020-07-23 11:21] LABS: Activated Partial Thrombo Time 93.3 seconds (22.8-30.6)
--- NOTE | 2020-07-23 12:26 | PC.WOUNDNOTE ---
Dr. Del Angel @ bedside @ 1210 speaking w/ family. MD aware of pt's current VS and rates of gtt. MD states awareness. No new orders @ this time. Pt resting comfortably, non-rebreather remains in place. Family @ bedside, along w/ rug shampooer. No needs voiced.
--- NOTE | 2020-07-23 14:49 | HMH.PULMPN ---
Internal Medicine - PN: Subj *Date: 07/23/20 *Time: 14:50 Interval history: Patient oxygen requirements continued to improve Exam - Constitutional Constitutional:: Present: no acute distress, comfortable - HENMT Exam HENMT: Present: normocephalic, atraumatic - Eye Exam Eyes:: Present: normal appearance both eyes and related structures - Neck Exam Neck:: Present: normal visual inspection - Respiratory Exam Respiratory:: Present: normal respiratory effort, crackles - Cardiovascular Exam Cardiac:: Present: S1, S2 - Skin Exam Skin: Present: warm, no rash - Neurological Exam Neurological: Absent: alert, awake, normal cognition Patient appears somnolent however arousable to verbal commands. - Extremities Exam Extremities: Present: no cyanosis, no clubbing Assessment and Plan (1) New onset atrial fibrillation Status: Acute Category: Medical Code(s): I48.91 - Unspecified atrial fibrillation (2) CHF exacerbation Status: Acute Qualifiers: Heart failure type: unspecified Qualified Code(s): I50.9 - Heart failure, unspecified Category: Medical Code(s): I50.9 - Heart failure, unspecified (3) Anxiety Status: Acute Category: Medical Code(s): F41.9 - Anxiety disorder, unspecified (4) Anemia Status: Acute Qualifiers: Anemia type: unspecified type Qualified Code(s): D64.9 - Anemia, unspecified Category: Medical Code(s): D64.9 - Anemia, unspecified (5) Obesity (BMI 30-39.9) Status: Acute Category: Medical Code(s): E66.9 - Obesity, unspecified (6) Cardiomyopathy Status: Acute Category: Medical Code(s): I42.9 - Cardiomyopathy, unspecified (7) HTN (hypertension) Status: Chronic Qualifiers: Hypertension type: essential hypertension Qualified Code(s): I10 - Essential (primary) hypertension Category: Medical Code(s): I10 - Essential (primary) hypertension (8) SOB (shortness of breath) Status: Acute Category: Medical Code(s): R06.02 - Shortness of breath (9) CAD (coronary artery disease) Status: Chronic Qualifiers: Coronary Disease-Associated Artery/Lesion type: [place] artery [place] vs. transplanted heart: [place] heart Associated angina: without angina Qualified Code(s): I25.10 - Atherosclerotic heart disease of [place] coronary artery without angina pectoris Category: Medical Code(s): I25.10 - Atherosclerotic heart disease of [place] coronary artery without angina pectoris (10) Renal insufficiency Status: Acute Category: Medical Code(s): N28.9 - Disorder of kidney and ureter, unspecified (11) Dysphagia Status: Acute Category: Medical Code(s): R13.10 - Dysphagia, unspecified - Assessment and plan all Dx Assessment and Plan for all problems:: #Acute on chronic hypoxic respiratory failure: # Shortness of breath: #Hospital-acquired pneumonia: #COVID-19 pneumonia: 85-year-old female no significant smoking history, no personal history or family history of asthma or allergies, carries a diagnosis of congestive heart failure presented worsening CHF exacerbation and new onset atrial fibrillation. Patient also usilg 2 liters long-term oxygen therapy at home. Patient also using Spiriva along with albuterol as needed as per chart review however patient is not clear name of the inhaler but she is using an inhaler twice a day. Patient respiratory status gradually declined in the last 48 hours with oxygen requirements escalated from nasal cannula to high flow nasal cannula and eventually to BiPAP. Chest x-ray showed bilateral worsening infiltrates/worsening pleural effusions with atelectasis. Repeat BNP is still elevated at 12,000. Patient has been receiving Xarelto since admission for her atrial fibrillation that was changed to heparin. Patient also diagnosed with COVID-19 pneumonia on her recent PCR recent chest CT WO showed bilateral lower lobe consolidation / atelectasis right more than left along with pleural e
--- NOTE | 2020-07-23 16:16 | HMH.ACPN2 ---
Internal Medicine - PN: Subj *Date: 07/23/20 *Time: 09:20 Interval history: pt laying in bed bipap in place. pt will open eyes when spoken to but does not answer questions Exam Vital signs and Labs for Last 24 Hours: Temp Pulse Resp BP Pulse Ox 96.9 F L 102 H 16 104/68 L 93 L 07/23/20 08:00 07/23/20 14:00 07/23/20 14:00 07/23/20 14:00 07/23/20 14:00 Laboratory Results - last 24 hr 07/22/20 20:20: APTT 49.8 H D 07/23/20 01:03: APTT 48.3 H 07/23/20 06:03: WBC 8.8 D, RBC 3.04 L, Hgb 8.7 L, Hct 27.6 L, MCV 90.8, MCH 28.4, MCHC 31.3 L, RDW 14.8, Plt Count 192, MPV 8.8, Neut % (Auto) 90.4 H, Lymph % (Auto) 5.9 L, [place] % (Auto) 3.2, Eos % (Auto) 0.4, Baso % (Auto) 0.1, Neut # (Auto) 8.0 H, Lymph # (Auto) 0.5 L, [place] # (Auto) 0.3, Eos # (Auto) 0.0, Baso # (Auto) 0.0, Total Counted 100, Neutrophils % (Manual) 91 H, Lymphocytes % (Manual) 5 L, Monocytes % (Manual) 4, Platelet Estimate Normal, Hypochromasia 1+ 07/23/20 06:03: Sodium 132 L, Potassium 5.1, Chloride 97 L, Carbon Dioxide 24, Anion Gap 16.1 H, BUN 71 H, Creatinine 2.10 H, Estimated Creat Clear 25, Estimated GFR 22 L, Est GFR ( Amer) 27 L, Glucose 182 H D, Calcium 8.4 07/23/20 06:03: APTT 47.5 H 07/23/20 08:44: Specimen Source L radial, O2 % 50, ABG pH 7.35, ABG pCO2 45.3 H, ABG pO2 99.4, ABG HCO3 24.6, ABG Total CO2 26.0, ABG O2 Saturation 97, ABG Base Excess -0.9, Thanh Test Acceptable, Tidal Volume 16/10 bipap 07/23/20 11:00: APTT 93.3 H* D I & O for Last 24 hours: Intake & Output 07/21/20 07/22/20 07/23/20 07/24/20 11:59 11:59 11:59 11:59 Intake Total 480 / 480 629 / 629 825 / 825 Output Total 550 / 550 350 / 350 500 / 500 Balance -70 / -70 279 / 279 325 / 325 Weight 180 lb 8 oz 180 lb 180 lb 9 oz Microbiology Reports for the Last 24 Hours: Microbiology 07/21/20 14:50 Blood Blood Culture - Preliminary NO GROWTH AFTER 48 HOURS 07/21/20 14:05 Blood Blood Culture - Preliminary NO GROWTH AFTER 48 HOURS 07/21/20 13:50 Urine,Catheterized Urine Culture - Final NO GROWTH AFTER 48 HOURS - Constitutional no acute distress, obese - *Routine HEENT Exam Head: Present: normocephalic Eye: Present: PERRL ENT: Present: mucous membranes moist - *Routine Neck Exam Present: supple. Absent: lymphadenopathy - *Routine Respiratory Exam Present: crackles - *Routine Cardiovascular Exam Present: irregularly irregular - *Routine Abdominal Exam Present: soft, normoactive bowel sounds. Absent: tenderness - *Routine Extremities Exam Absent: cyanosis, clubbing, edema - *Routine Skin Exam Present: warm. Absent: rash - *Routine Neurological Exam opens eyes when name spoken but does not follow commands - Routine Psychiatric Exam Present: unable to assess Assessment and Plan (1) New onset atrial fibrillation Status: Acute Category: Medical Code(s): I48.91 - Unspecified atrial fibrillation (2) CHF exacerbation Status: Acute Qualifiers: Heart failure type: unspecified Qualified Code(s): I50.9 - Heart failure, unspecified Category: Medical Code(s): I50.9 - Heart failure, unspecified (3) Anxiety Status: Acute Category: Medical Code(s): F41.9 - Anxiety disorder, unspecified (4) Anemia Status: Acute Qualifiers: Anemia type: unspecified type Qualified Code(s): D64.9 - Anemia, unspecified Category: Medical Code(s): D64.9 - Anemia, unspecified (5) Obesity (BMI 30-39.9) Status: Acute Category: Medical Code(s): E66.9 - Obesity, unspecified (6) Cardiomyopathy Status: Acute Category: Medical Code(s): I42.9 - Cardiomyopathy, unspecified (7) HTN (hypertension) Status: Chronic Qualifiers: Hypertension type: essential hypertension Qualified Code(s): I10 - Essential (primary) hypertension Category: Medical Code(s): I10 - Essential (primary) hypertension (8) SOB (abdi
--- NOTE | 2020-07-23 16:21 | PC.NURSE ---
This nurse and Jennifer HutchinsRN attempted NG insertion x2, w/ no success. supervisor pole yard, Beth Serrano RN notified and asked to help. States she will come to floor and attempt.
--- NOTE | 2020-07-23 16:44 | DIET.NUTRFU ---
Addendum entered by Isaura Angel 07/23/20 16:58: water flush with 190ml q 4h Original Note: Nutritional consult received to initiate TF, pt will be on BiPAP extensive time and unable to tolerate PO intake. Pt has had no PO intake past 48h and minimal prior. Recommend initiating enteral nutrition with slow and low advancement/rate, will monitor and alter regimen as indicated. Recommend initiating continuous tube feeding regimen of Pulmocare 1.5 at 20ml/h and advancing by 13ml/h q 8h (advance once) as tolerated to goal rate of 33ml/h. Pt not on IVF, water flushes of 190ml/h meet additional fluid needs not provided by formula. This regimen provides 1200kcal, 67g protein, 175g cho, 72g fat, and 560ml free water (1700ml total fluids with flushes).
--- NOTE | 2020-07-23 17:03 | XR_ITS ---
PROCEDURE INFORMATION: Exam: XR Chest Exam date and time: 07/23/2020 5:03 PM Age: 85 years old Clinical indication: Device placement; Patient HX: Ng tube placement; Covid positive; Additional info: Ng placement TECHNIQUE: Imaging protocol: XR of the chest. Views: 1 view. COMPARISON: CT CHEST WO CON 07/22/2020 3:11 PM FINDINGS: Tubes, catheters and devices: Spinal stimulator is noted. Nasogastric tube is present with the tip in the region of the stomach. Lungs: The lungs are hyperinflated, consistent with underlying small airways disease. Atelectatic and/or early infiltrative changes noted within both lung bases. Pleural spaces: Unremarkable. No pleural effusion. No pneumothorax. Heart/Mediastinum: Unremarkable. No cardiomegaly. Vasculature: The vasculature demonstrates diffuse moderate atherosclerotic calcification. Bones/joints: Degenerative changes of both shoulders. IMPRESSION: 1. The lungs are hyperinflated, consistent with underlying small airways disease. 2. Nasogastric tube is present with the tip in the region of the stomach. 3. Atelectatic and/or early infiltrative changes noted within both lung bases.
[2020-07-23 17:37] LABS: Activated Partial Thrombo Time 55.1 seconds (22.8-30.6)
--- NOTE | 2020-07-23 18:48 | PC.NURSE ---
Pt remains on BIPAP @ 40%. She is much more alert this afternoon than she has been majority of day. NG has been placed in (R) nare for online media buyer and tube feeds. Tube feeds have only been going for short period of time, but so far pt has tolerated w/o incident. Garcia care to drain @ bedside w/ clear bright yellow urine. Pt was incontinent of a med soft BM this shift. Received bed bath and linen change. Garcia care performed. Turned and repositioned Q2H. Bed safety in place.
--- NOTE | 2020-07-23 21:57 | PC.NURSE ---
spoke with dr hernandez to clarify transfusion of blood order, new order received to hold blood for now
--- NOTE | 2020-07-23 23:32 | PC.NURSE ---
when bipap mask removed and oral care performed patient able to state name and birthday with delay. follows commands and answers yes and no questions by shaking head.
[2020-07-24] VITALS (15 sets, daily range): BP systolic 115–143; BP diastolic 61–90; PULSE 86–130; RESP 0–20; TEMP 36–36.7; O2SAT 88–96; BMI 33.8
[2020-07-24 00:12] LABS: Activated Partial Thrombo Time 59.5 seconds (22.8-30.6)
[2020-07-24 06:00] LABS: Basophils % 0.1 % (0.1-2.0); Eosinophils % 0.2 % (0.1-12.0); Hematocrit 28.5 % (37.0-47.0); Hemoglobin 8.9 g/dL (12.2-16.2); Lymphocytes # 0.7 K/mm3 (0.7-4.5); Lymphocytes % 6.6 % (10-50); Mean Corpuscular HGB Conc 31.4 g/dL (31.8-35.4); Mean Corpuscular Hemoglobin 28.4 pg (27.0-31.2); Mean Corpuscular Volume 90.7 fl (81-99); Mean Platelet Volume 9.5 fl (7.4-10.4); Monocytes # 0.7 K/mm3 (0.1-1.0); Monocytes % 6.6 % (1.7-9.3); Neutrophils # 8.7 K/mm3 (1.8-7.8); Neutrophils % 86.5 % (37.0-80.0); Platelet Count 216 K/mm3 (142-424); Red Blood Count 3.14 M/mm3 (4.20-5.40)
[2020-07-24 06:03] LABS: Chloride 97 mmol/L (98-107); Potassium 4.7 mmoL/L (3.5-5.1); Sodium 132 mmol/L (136-145)
[2020-07-24 06:06] LABS: Creatinine Clearance Estimated 24 mL/min (50-200); Estimated Glomerular Filt Rate 21 ml/min (>60); GFR (African American) 26 ML/MIN (>60)
[2020-07-24 06:07] LABS: Anion Gap 15.7 mEq/L (5-15); Calcium 8.5 mg/dl (8.4-10.2); Carbon Dioxide 24 mmol/L (22.0-30.0); Glucose 207 mg/dl (74-100)
[2020-07-24 06:09] LABS: MANUAL DIFFERENTIAL MANUAL DIFFERENTIAL (MANUAL DIFF)
[2020-07-24 06:10] LABS: Blood Urea Nitrogen 85 mg/dl (7-17)
--- NOTE | 2020-07-24 07:04 | PC.NURSE ---
called lab regarding aptt results, this nurse informed by lab that it hasn't been drawn yet and they are on their way to draw it.
[2020-07-24 08:09] LABS: Activated Partial Thrombo Time 65.3 seconds (22.8-30.6)
[2020-07-24 08:20] LABS: Hypochromasia 1+; Lymphocytes % 11 % (10-50); Monocytes % 5 % (2-9); Neutrophils % 84 % (42-76); Platelet Estimate Normal; Total Cells Counted 100
--- NOTE | 2020-07-24 08:55 | HMH.ACPN2 ---
Internal Medicine - PN: Erik *Date: 07/24/20 *Time: 08:55 Interval history: pt awake and no distress on bpap - Exam Vital signs and Labs for Last 24 Hours: Temp Pulse Resp BP Pulse Ox 97.1 F L 104 H 16 143/80 H 95 07/24/20 04:00 07/24/20 08:00 07/24/20 08:00 07/24/20 08:00 07/24/20 08:00 Laboratory Results - last 24 hr 07/23/20 08:44: Specimen Source L radial, O2 % 50, ABG pH 7.35, ABG pCO2 45.3 H, ABG pO2 99.4, ABG HCO3 24.6, ABG Total CO2 26.0, ABG O2 Saturation 97, ABG Base Excess -0.9, Thanh Test Acceptable, Tidal Volume 16/10 bipap 07/23/20 11:00: APTT 93.3 H* D 07/23/20 17:14: APTT 55.1 H* D 07/23/20 23:45: APTT 59.5 H* 07/24/20 05:45: WBC 10.0, RBC 3.14 L, Hgb 8.9 L, Hct 28.5 L, MCV 90.7, MCH 28.4, MCHC 31.4 L, RDW 15.0, Plt Count 216, MPV 9.5, Neut % (Auto) 86.5 H, Lymph % (Auto) 6.6 L, [place] % (Auto) 6.6, Eos % (Auto) 0.2, Baso % (Auto) 0.1, Neut # (Auto) 8.7 H, Lymph # (Auto) 0.7, [place] # (Auto) 0.7, Eos # (Auto) 0.0, Baso # (Auto) 0.0, Total Counted 100, Neutrophils % (Manual) 84 H, Lymphocytes % (Manual) 11, Monocytes % (Manual) 5, Platelet Estimate Normal, Hypochromasia 1+ 07/24/20 05:45: Sodium 132 L, Potassium 4.7, Chloride 97 L, Carbon Dioxide 24, Anion Gap 15.7 H, BUN 85 H, Creatinine 2.20 H, Estimated Creat Clear 24, Estimated GFR 21 L, Est GFR ( Amer) 26 L, Glucose 207 H, Calcium 8.5 07/24/20 07:50: APTT 65.3 H* I & O for Last 24 hours: Intake & Output 07/21/20 07/22/20 07/23/20 07/24/20 11:59 11:59 11:59 11:59 Intake Total 480 / 480 629 / 629 825 / 825 544 / 544 Output Total 550 / 550 350 / 350 500 / 500 875 / 875 Balance -70 / -70 279 / 279 325 / 325 -331 / -331 Weight 180 lb 8 oz 180 lb 180 lb 9 oz 179 lb 5 oz Microbiology Reports for the Last 24 Hours: Microbiology 07/21/20 14:50 Blood Blood Culture - Preliminary NO GROWTH AFTER 48 HOURS 07/21/20 14:05 Blood Blood Culture - Preliminary NO GROWTH AFTER 48 HOURS 07/21/20 13:50 Urine,Catheterized Urine Culture - Final NO GROWTH AFTER 48 HOURS - Constitutional no acute distress, obese - *Routine HEENT Exam Head: Present: normocephalic Eye: Present: EOMI, PERRL ENT: Present: mucous membranes dry - *Routine Neck Exam Present: supple - *Routine Respiratory Exam Present: decreased breath sounds, other (on bpap) - *Routine Cardiovascular Exam Present: RRR - *Routine Abdominal Exam Present: soft, other (has g tube ) - *Routine Extremities Exam Present: edema - *Routine Skin Exam Present: intact - *Routine Neurological Exam Present: altered mental status no focal changes - Routine Psychiatric Exam Present: unable to assess Assessment and Plan (1) New onset atrial fibrillation Status: Acute Category: Medical Code(s): I48.91 - Unspecified atrial fibrillation (2) CHF exacerbation Status: Acute Qualifiers: Heart failure type: unspecified Qualified Code(s): I50.9 - Heart failure, unspecified Category: Medical Code(s): I50.9 - Heart failure, unspecified (3) Anxiety Status: Acute Category: Medical Code(s): F41.9 - Anxiety disorder, unspecified (4) Anemia Status: Acute Qualifiers: Anemia type: unspecified type Qualified Code(s): D64.9 - Anemia, unspecified Category: Medical Code(s): D64.9 - Anemia, unspecified (5) Obesity (BMI 30-39.9) Status: Acute Category: Medical Code(s): E66.9 - Obesity, unspecified (6) Cardiomyopathy Status: Acute Category: Medical Code(s): I42.9 - Cardiomyopathy, unspecified (7) HTN (hypertension) Status: Chronic Qualifiers: Hypertension type: essential hypertension Qualified Code(s): I10 - Essential (primary) hypertension Category: Medical Code(s): I10 - Essential (primary) hypertension (8) SOB (shortness of breath) Status: Acute Category: Medical Code(s): R06.02 - Shortness of breath
--- NOTE | 2020-07-24 10:44 | PC.NURSE ---
Spoke w/ Dr. Lopez @ [id number], update on pt's current status. Pt is much more awake this morning and is able to follow commands. States she may be weaned to nasal cannula and wear it during the day as long as O2 maintains 90%. Wishes for her to wear BIPAP @ HS. Pt placed on 3 L nasal cannula, tolerating well. Sat currently 93%. Cont pulse ox remains in place. Will continue to monitor.
--- NOTE | 2020-07-24 13:46 | HMH.ACPN ---
Internal Medicine - PN: Subj *Date: 07/24/20 *Time: 13:46 Exam Vital signs and Labs for Last 24 Hours: Temp Pulse Resp BP Pulse Ox 96.8 F L 88 16 133/66 96 07/24/20 08:00 07/24/20 12:00 07/24/20 12:00 07/24/20 12:00 07/24/20 12:56 Laboratory Results - last 24 hr 07/23/20 17:14: APTT 55.1 H* D 07/23/20 23:45: APTT 59.5 H* 07/24/20 05:45: WBC 10.0, RBC 3.14 L, Hgb 8.9 L, Hct 28.5 L, MCV 90.7, MCH 28.4, MCHC 31.4 L, RDW 15.0, Plt Count 216, MPV 9.5, Neut % (Auto) 86.5 H, Lymph % (Auto) 6.6 L, [place] % (Auto) 6.6, Eos % (Auto) 0.2, Baso % (Auto) 0.1, Neut # (Auto) 8.7 H, Lymph # (Auto) 0.7, [place] # (Auto) 0.7, Eos # (Auto) 0.0, Baso # (Auto) 0.0, Total Counted 100, Neutrophils % (Manual) 84 H, Lymphocytes % (Manual) 11, Monocytes % (Manual) 5, Platelet Estimate Normal, Hypochromasia 1+ 07/24/20 05:45: Sodium 132 L, Potassium 4.7, Chloride 97 L, Carbon Dioxide 24, Anion Gap 15.7 H, BUN 85 H, Creatinine 2.20 H, Estimated Creat Clear 24, Estimated GFR 21 L, Est GFR ( Amer) 26 L, Glucose 207 H, Calcium 8.5 07/24/20 07:50: APTT 65.3 H* I & O for Last 24 hours: Intake & Output 07/21/20 07/22/20 07/23/20 07/24/20 23:59 23:59 23:59 23:59 Intake Total 100 / 100 1041 / 1041 857 / 857 Output Total 600 / 600 950 / 1200 425 / 425 Balance -500 / -500 1041 / 1041 -93 / -343 -425 / -425 Weight 81.873 kg 81.647 kg 81.902 kg 81.335 kg Microbiology Reports for the Last 24 Hours: Microbiology 07/21/20 14:50 Blood Blood Culture - Preliminary NO GROWTH AFTER 48 HOURS 07/21/20 14:05 Blood Blood Culture - Preliminary NO GROWTH AFTER 48 HOURS 07/21/20 13:50 Urine,Catheterized Urine Culture - Final NO GROWTH AFTER 48 HOURS Assessment and Plan (1) New onset atrial fibrillation Status: Acute Category: Medical Code(s): I48.91 - Unspecified atrial fibrillation (2) CHF exacerbation Status: Acute Qualifiers: Heart failure type: unspecified Qualified Code(s): I50.9 - Heart failure, unspecified Category: Medical Code(s): I50.9 - Heart failure, unspecified (3) Anxiety Status: Acute Category: Medical Code(s): F41.9 - Anxiety disorder, unspecified (4) Anemia Status: Acute Qualifiers: Anemia type: unspecified type Qualified Code(s): D64.9 - Anemia, unspecified Category: Medical Code(s): D64.9 - Anemia, unspecified (5) Obesity (BMI 30-39.9) Status: Acute Category: Medical Code(s): E66.9 - Obesity, unspecified (6) Cardiomyopathy Status: Acute Category: Medical Code(s): I42.9 - Cardiomyopathy, unspecified (7) HTN (hypertension) Status: Chronic Qualifiers: Hypertension type: essential hypertension Qualified Code(s): I10 - Essential (primary) hypertension Category: Medical Code(s): I10 - Essential (primary) hypertension (8) SOB (shortness of breath) Status: Acute Category: Medical Code(s): R06.02 - Shortness of breath (9) CAD (coronary artery disease) Status: Chronic Qualifiers: Coronary Disease-Associated Artery/Lesion type: three affiliated artery [place] vs. transplanted heart: three affiliated heart Associated angina: without angina Qualified Code(s): I25.10 - Atherosclerotic heart disease of three affiliated coronary artery without angina pectoris Category: Medical Code(s): I25.10 - Atherosclerotic heart disease of three affiliated coronary artery without angina pectoris (10) Renal insufficiency Status: Acute Category: Medical Code(s): N28.9 - Disorder of kidney and ureter, unspecified (11) Dysphagia Status: Acute Category: Medical Code(s): R13.10 - Dysphagia, unspecified (12) COVID-19 with pulmonary comorbidity Status: Acute Category: Medical Code(s): U07.1 - COVID-19; J98.4 - Other disorders of lung The patient's infection will respond to the chosen ABx?: Yes Is the patient receiving the right drug, dose, and route?: Yes Could a m
--- NOTE | 2020-07-24 15:50 | PC.NURSE ---
Pt remain on 3 L nasal cannula, sat 90-93%. No s/s of resp distress. Lungs diminished. Remain in A-Fib w/ controlled rate. Abdomen soft, non-tender w/ active BS. NG remains patent w/ tube feeds @ goal rate of 33 mls/hr, tolerating w/o incident. No Bm this shift. Garcia to drain @ bedside w/ clear drk yellow urine. Pt turned and repositioned Q2H. Oral care performed Q2H as well. Family updated via phone this AM. She is currently resting in bed. No complaints voiced. Bed alarm in place for safety. Call jamie w/in reach.
[2020-07-25] VITALS (11 sets, daily range): BP systolic 129–141; BP diastolic 66–89; PULSE 80–114; RESP 16–25; TEMP 36.4–37.1; O2SAT 84–95; BMI 34.0
--- NOTE | 2020-07-25 03:36 | PC.NURSE ---
NO acute changes overnight. Pt wore bipap most of the night. Pt had one episode of agitation while wearing bipap and refused to put it on. Xanax given per may, pt was able to relax and eventually fall asleep. Bipap was put back on. Lungs diminished, on bipap at night, wearing 3L NC when awake. Bowel sounds x4, abd soft and nontender. Pt has had 1 large BM this shift. IVs patent, Hep gtt @ 1450. NG @ 55, pulmocare @ 33ml/hr. pt turned q2h, heel protectors on. VSS, call light in reach, no concerns at this time.
[2020-07-25 05:53] LABS: Basophils % 0.1 % (0.1-2.0); Eosinophils % 0.4 % (0.1-12.0); Hematocrit 28.5 % (37.0-47.0); Hemoglobin 8.8 g/dL (12.2-16.2); Lymphocytes # 0.7 K/mm3 (0.7-4.5); Mean Corpuscular HGB Conc 30.9 g/dL (31.8-35.4); Mean Corpuscular Hemoglobin 27.6 pg (27.0-31.2); Mean Corpuscular Volume 89.4 fl (81-99); Mean Platelet Volume 9.4 fl (7.4-10.4); Monocytes # 0.8 K/mm3 (0.1-1.0); Monocytes % 7.5 % (1.7-9.3); Platelet Count 233 K/mm3 (142-424); Red Blood Count 3.19 M/mm3 (4.20-5.40); White Blood Count 10.5 K/mm3 (4.8-10.8)
[2020-07-25 05:56] LABS: Anion Gap 14.6 mEq/L (5-15); Calcium 8.2 mg/dl (8.4-10.2); Carbon Dioxide 22 mmol/L (22.0-30.0); Chloride 101 mmol/L (98-107); Creatinine Clearance Estimated 31 mL/min (50-200); Estimated Glomerular Filt Rate 29 ml/min (>60); GFR (African American) 35 ML/MIN (>60); Glucose 196 mg/dl (74-100); Potassium 4.6 mmoL/L (3.5-5.1); Sodium 133 mmol/L (136-145)
[2020-07-25 06:08] LABS: MANUAL DIFFERENTIAL MANUAL DIFFERENTIAL (MANUAL DIFF)
[2020-07-25 06:21] LABS: Blood Urea Nitrogen 99 mg/dl (7-17)
[2020-07-25 08:15] LABS: Hypochromasia 2+; Lymphocytes % 13 % (10-50); Monocytes % 6 % (2-9); Neutrophils % 81 % (42-76); Platelet Estimate Normal; Total Cells Counted 100
[2020-07-25 08:59] LABS: Activated Partial Thrombo Time 74.9 seconds (22.8-30.6)
--- NOTE | 2020-07-25 10:33 | HMH.ACPN2 ---
Internal Medicine - PN: Subj *Date: 07/25/20 *Time: 10:33 Interval history: Patient is making some slow clinical improvement. Is transitioning from cannula to BiPAP. Her peak white count was 22.4, down to 10.5 this morning. Hemoglobin is 8.8 creatinine 1.7. She is on a heparin drip for A. fib. Will transition to Xarelto when she is able to take p.o. medication. She is currently being fed through an NG tube. Rate control is being achieved with Coreg and diltiazem. She is currently on a regimen of cefepime and clindamycin and dexamethasone. Most recent chest film from 430 showed atelectatic changes at both bases with the presence of an NG tube. Her CT of the brain was negative. She is felt to have an element of aspiration pneumonia per pulmonology, and CHF. Diuretics are being used judiciously in view of her marginal renal function. She is more alert today than when I previously saw her. Nursing staff relays no major complaints or concerns. She answers simple questions appropriately Exam Vital signs and Labs for Last 24 Hours: Temp Pulse Resp BP Pulse Ox 97.6 F 90 20 140/66 94 L 07/25/20 08:00 07/25/20 08:00 07/25/20 08:00 07/25/20 08:00 07/25/20 08:00 Laboratory Results - last 24 hr 07/25/20 05:35: WBC 10.5, RBC 3.19 L, Hgb 8.8 L, Hct 28.5 L, MCV 89.4, MCH 27.6, MCHC 30.9 L, RDW 15.0, Plt Count 233, MPV 9.4, Neut % (Auto) 85.0 H, Lymph % (Auto) 7.0 L, [place] % (Auto) 7.5, Eos % (Auto) 0.4, Baso % (Auto) 0.1, Neut # (Auto) 9.0 H, Lymph # (Auto) 0.7, [place] # (Auto) 0.8, Eos # (Auto) 0.0, Baso # (Auto) 0.0, Total Counted 100, Neutrophils % (Manual) 81 H, Lymphocytes % (Manual) 13, Monocytes % (Manual) 6, Platelet Estimate Normal, Hypochromasia 2+ 07/25/20 05:35: Sodium 133 L, Potassium 4.6, Chloride 101, Carbon Dioxide 22, Anion Gap 14.6, BUN 99 H, Creatinine 1.70 H D, Estimated Creat Clear 31, Estimated GFR 29 L, Est GFR ( Amer) 35 L D, Glucose 196 H, Calcium 8.2 L 07/25/20 08:15: APTT 74.9 H* D I & O for Last 24 hours: Intake & Output 07/22/20 07/23/20 07/24/20 07/25/20 23:59 23:59 23:59 23:59 Intake Total 1041 / 1041 857 / 857 1080 / 1080 Output Total 950 / 1200 425 / 1075 800 / 800 Balance 1041 / 1041 -93 / -343 655 / 5 -800 / -800 Weight 180 lb 180 lb 9 oz 179 lb 5 oz 180 lb 1 oz Microbiology Reports for the Last 24 Hours: Microbiology 07/22/20 14:15 Nose - Nasal MRSA Culture - Final Negative - Constitutional no acute distress, chronically ill appearing, disheveled, cooperative, somnolent - *Routine HEENT Exam Head: Present: normocephalic Eye: Present: EOMI, PERRL ENT: Present: mucous membranes moist - *Routine Neck Exam Present: supple. Absent: lymphadenopathy - *Routine Respiratory Exam Present: crackles. Absent: accessory muscle use, respiratory distress, wheezes - *Routine Cardiovascular Exam Present: irregular rhythm, irregularly irregular - *Routine Abdominal Exam Present: soft, normoactive bowel sounds. Absent: tenderness - *Routine Extremities Exam Absent: cyanosis, clubbing, edema - *Routine Skin Exam Present: warm. Absent: rash - *Routine Neurological Exam Present: alert, oriented X3 Assessment and Plan (1) New onset atrial fibrillation Status: Acute Category: Medical Code(s): I48.91 - Unspecified atrial fibrillation (2) CHF exacerbation Status: Acute Qualifiers: Heart failure type: unspecified Qualified Code(s): I50.9 - Heart failure, unspecified Category: Medical Code(s): I50.9 - Heart failure, unspecified (3) Anxiety Status: Acute Category: Medical Code(s): F41.9 - Anxiety disorder, unspecified (4) Anemia Status: Acute Qualifiers: Anemia type: unspecified type Qualified Code(s): D64.9 - Anemia, unspecified Category: Medical Code(s): D64.9 - Anemia, unspecified (5) Obesity (BMI 30-39.9) Status: Acute Category: Medical Code(s): E66.9 - Obesity, unspecifi
--- NOTE | 2020-07-25 16:55 | PC.NURSE ---
Pt has been pleasant and cooperative this shift. Alert to person and occasionally place. No complaints of pain or SOA. Pt is receiving O2 via NC @ 4 LPM with sats. >90%. Lungs sounds reveal scattered wheezing. 1+ pitting edema noted to BLE. Telemetry reveals atrial fibrillation. Skin is C/D/I. F/C is patent and draining clear, yellow urine at bedside to gravity. 1 large, soft, brown BM this shift. Pulmocare infusing via NG tube @ 33 ML/HR. Residuals this shift have been 0 thus far. 20 G peripheral IV in the LT AC is patent and infusing Heparin @ 29 ML/HR (1450 Units/HR). 20 G peripheral IV in the RT AC is patent and SL. VSS. Call light within reach. Bed safety alarm is set. Will continue to monitor.
--- NOTE | 2020-07-25 22:40 | PC.NURSE ---
PT REFUSED BIPAP @ THIS TIME, SEEMED VERY CONFUSED AND KEPT STATING THAT SHE WAS GOING HOME. RN NOTIFIED.
[2020-07-26] VITALS (11 sets, daily range): BP systolic 135–181; BP diastolic 65–82; PULSE 82–120; RESP 13–21; TEMP 36.2–37.2; O2SAT 87–97; BMI 34.3
--- NOTE | 2020-07-26 06:00 | XR_ITS ---
PROCEDURE INFORMATION: Exam: XR Chest Exam date and time: 07/26/2020 6:00 AM Age: 85 years old Clinical indication: Condition or disease; Patient HX: Covid pna; Additional info: Covid pneumonia TECHNIQUE: Imaging protocol: XR of the chest. Views: 1 view. COMPARISON: CR XR CHEST PORTABLE 07/23/2020 5:13 PM FINDINGS: Tubes, catheters and devices: NG tube with tip not included but presumably within the stomach. Spinal stimulator overlying the mid upper thoracic region. Lungs: Vague ill-defined right greater than left lower lung opacities. Pleural spaces: Unremarkable. No pleural effusion. No pneumothorax. Heart/Mediastinum: Unremarkable. No cardiomegaly. Bones/joints: Bilateral glenohumeral degenerative changes. IMPRESSION: 1. Vague ill-defined right greater than left lower lung infiltrates suspected. 2. NG tube, spinal stimulator.
--- NOTE | 2020-07-26 06:13 | PC.NURSE ---
2330 patient has become more confused and uncooperative. attempting to get out of bed, pulled ngt out, monitor worker, o2 sat probe and o2 off. o2, monitor worker, sat monitor and mitts all reapplied. assisted putting legs back in bed, and reactivating bed alarm. patient continually stating i'm going to my room, leave me alone. continues to be unwilling to put bipap on as well.
--- NOTE | 2020-07-26 06:16 | PC.NURSE ---
0200 patient resting well, bipap applied without incident.
--- NOTE | 2020-07-26 06:16 | PC.NURSE ---
0500 12 english ngt placed in right nare, auscultated for placement and secured at 65 cm. cxr performed this am
[2020-07-26 06:19] LABS: Eosinophils % 0.3 % (0.1-12.0); Hemoglobin 9.3 g/dL (12.2-16.2); Lymphocytes # 0.9 K/mm3 (0.7-4.5); Mean Corpuscular HGB Conc 31.6 g/dL (31.8-35.4); Mean Corpuscular Volume 88.4 fl (81-99); Mean Platelet Volume 9.8 fl (7.4-10.4); Monocytes # 0.9 K/mm3 (0.1-1.0); Monocytes % 8.2 % (1.7-9.3); Neutrophils # 8.6 K/mm3 (1.8-7.8); Neutrophils % 82.5 % (37.0-80.0); Platelet Count 216 K/mm3 (142-424); Red Blood Count 3.32 M/mm3 (4.20-5.40); Red Cell Distribution Width 14.9 % (11.5-17.5); White Blood Count 10.4 K/mm3 (4.8-10.8)
[2020-07-26 06:21] LABS: Hematocrit 29.3 % (37.0-47.0)
[2020-07-26 06:22] LABS: Alanine Aminotransferase 10 U/L (12-78); Albumin Level 3.2 g/dl (3.5-5.0); Albumin/Globulin Ratio 1.1 (1.1-1.8); Alkaline Phosphatase 61 U/L (38-126); Aspartate Amino Transferase 14 U/L (14-36); Bilirubin,Total 0.4 mg/dl (0.2-1.3); Calcium 8.7 mg/dl (8.4-10.2); Carbon Dioxide 24 mmol/L (22.0-30.0); Chloride 102 mmol/L (98-107); Creatinine Clearance Estimated 32 mL/min (50-200); Estimated Glomerular Filt Rate 29 ml/min (>60); GFR (African American) 35 ML/MIN (>60); Globulin 2.8 g/dL (1.3-3.2); Glucose 180 mg/dl (74-100); Sodium 133 mmol/L (136-145)
[2020-07-26 06:35] LABS: Blood Urea Nitrogen 93 mg/dl (7-17)
--- NOTE | 2020-07-26 09:07 | HMH.ACPN2 ---
Internal Medicine - PN: Subj *Date: 07/26/20 *Time: 09:15 Interval history: pt on bipap, feedings per ng tube, pt awake and answers questions jasiel. per staff pt was off bipap all day yesterday and placed back on bipap to sleep Exam Vital signs and Labs for Last 24 Hours: Temp Pulse Resp BP Pulse Ox 97.2 F L 102 H 16 144/78 H 95 07/26/20 04:00 07/26/20 06:15 07/26/20 04:00 07/26/20 04:00 07/26/20 06:15 Laboratory Results - last 24 hr 07/26/20 05:58: WBC 10.4, RBC 3.32 L, Hgb 9.3 L, Hct 29.3 L, MCV 88.4, MCH 28.0, MCHC 31.6 L, RDW 14.9, Plt Count 216, MPV 9.8, Neut % (Auto) 82.5 H, Lymph % (Auto) 9.0 L, [place] % (Auto) 8.2, Eos % (Auto) 0.3, Baso % (Auto) 0.0 L, Neut # (Auto) 8.6 H, Lymph # (Auto) 0.9, [place] # (Auto) 0.9, Eos # (Auto) 0.0, Baso # (Auto) 0.0 07/26/20 05:58: Sodium 133 L, Potassium 5.0, Chloride 102, Carbon Dioxide 24, Anion Gap 12.0, BUN 93 H, Creatinine 1.70 H, Estimated Creat Clear 32, Estimated GFR 29 L, Est GFR ( Amer) 35 L, Glucose 180 H, Calcium 8.7, Total Bilirubin 0.4, AST 14, ALT 10 L, Alkaline Phosphatase 61, Total Protein 6.0 L, Albumin 3.2 L, Globulin 2.8, Albumin/Globulin Ratio 1.1 I & O for Last 24 hours: Intake & Output 07/23/20 07/24/20 07/25/20 07/26/20 11:59 11:59 11:59 11:59 Intake Total 825 / 825 544 / 544 1080 / 1080 4135 / 4135 Output Total 500 / 500 875 / 875 800 / 800 775 / 775 Balance 325 / 325 -331 / -331 280 / 280 3360 / 3360 Weight 180 lb 9 oz 179 lb 5 oz 180 lb 1 oz 182 lb Microbiology Reports for the Last 24 Hours: Microbiology 07/22/20 14:15 Nose - Nasal MRSA Culture - Final Negative - Constitutional mild distress, obese - *Routine HEENT Exam Head: Present: normocephalic Eye: Present: PERRL ENT: Present: mucous membranes moist - *Routine Neck Exam Present: supple. Absent: lymphadenopathy - *Routine Respiratory Exam Present: decreased breath sounds, rhonchi - *Routine Cardiovascular Exam Present: irregularly irregular - *Routine Abdominal Exam Present: soft, normoactive bowel sounds. Absent: tenderness - *Routine Extremities Exam Present: edema. Absent: cyanosis, clubbing - *Routine Skin Exam Present: warm. Absent: rash - *Routine Neurological Exam Present: alert - Routine Psychiatric Exam Present: normal affect Assessment and Plan (1) New onset atrial fibrillation Status: Acute Category: Medical Code(s): I48.91 - Unspecified atrial fibrillation (2) CHF exacerbation Status: Acute Qualifiers: Heart failure type: unspecified Qualified Code(s): I50.9 - Heart failure, unspecified Category: Medical Code(s): I50.9 - Heart failure, unspecified (3) Anxiety Status: Acute Category: Medical Code(s): F41.9 - Anxiety disorder, unspecified (4) Anemia Status: Acute Qualifiers: Anemia type: unspecified type Qualified Code(s): D64.9 - Anemia, unspecified Category: Medical Code(s): D64.9 - Anemia, unspecified (5) Obesity (BMI 30-39.9) Status: Acute Category: Medical Code(s): E66.9 - Obesity, unspecified (6) Cardiomyopathy Status: Acute Category: Medical Code(s): I42.9 - Cardiomyopathy, unspecified (7) HTN (hypertension) Status: Chronic Qualifiers: Hypertension type: essential hypertension Qualified Code(s): I10 - Essential (primary) hypertension Category: Medical Code(s): I10 - Essential (primary) hypertension (8) SOB (shortness of breath) Status: Acute Category: Medical Code(s): R06.02 - Shortness of breath (9) CAD (coronary artery disease) Status: Chronic Qualifiers: Coronary Disease-Associated Artery/Lesion type: [place] artery [place] vs. transplanted heart: [place] heart Associated angina: without angina Qualified Code(s): I25.10 - Atherosclerotic heart disease of [place] coronary artery without angina pectoris Category: Medical Code(s): I25.10 - Atherosclerotic heart disease of [place]
[2020-07-26 09:13] LABS: Activated Partial Thrombo Time 89.7 seconds (22.8-30.6)
--- NOTE | 2020-07-26 10:35 | PC.NURSE ---
Did call and notify Flora in Dr. Garcia office of BUN of 93 at this time.
--- NOTE | 2020-07-26 10:50 | HMH.PTEV ---
Physical Therapy Evaluation Rehab PT IP Evaluation Start: 07/19/20 10:01 Freq: ONCE Status: Active Protocol: Document 07/19/20 11:34 PHORNE (Rec: 07/19/20 11:38 PHORNE [id number]) Subjective/History History History 85 yowf adm to [facility] with CHF exac and a-fib. She reports living by herslef, no steps to enter the home, uses a walker for ambulation. Subjective Subjective She c/o significant pain in the R knee which has only been present for the past 24 hrs. Rehab PT IP Eval Objective Appearance Patient Behavior Appropriate Patient Orientation Person,Place Difficulty following instructions none Speech Pattern Clear Ambulation Patient Able to Ambulate No Balance Ability to Arise Able, uses arms to help Sitting Balance Steady, safe Standing Balance Steady, wide stance Dynamic Sitting Balance Ability Good Dynamic Standing Balance Ability Fair Transfers Bed Transfer Ability Minimal x 1 (25% assist) Chair Transfer Ability Moderate x 1 (50% assist) Sit to Stand Bed Transfer Ability Minimal x 1 (25% assist) Sit to Stand Chair Transfer Ability Minimal x 1 (25% assist) ROM All Extremities PT ROM Status WFL Abnormal ROM Comment R knee is painful during all ROM. MMT All Extremities PT MMT WFL Rehab PT IP prob,goals,plan Problems Date of Evaluation: 07/19/20 PT IP Problems Bed Mobility,Transfers,Gait Rehab Potential Rehab Potential Good Plan PT Intervention Plan Bed Mobility,Transfers,Gait, Self care,Therapeutic Exercise PT Plan Frequency BID Duration LOS Discharge Goals Bed Transfer Ability Contact Guard/Hand Hold Sit to Stand Chair Transfer Ability Contact Guard/Hand Hold Ambulation Assistive Device Rolling Walker Ambulation Distance (feet) 20 Discharge Plan PT Discharge Plan Pt is currently most appropriate for rehab placement due to significant chance of injury and poor outcomes if she were to return home at this time. Should her safe mobility improve, she may be able to return home once medically stable. G -code Required No Eval Complexity Eval Charge Codes
--- NOTE | 2020-07-26 12:55 | HMH.PULMPN ---
Internal Medicine - PN: Subj *Date: 07/26/20 *Time: 12:55 Interval history: Patient's respiratory status continued to improve Exam - Constitutional Constitutional:: Present: no acute distress, comfortable - HENMT Exam HENMT: Present: normocephalic, atraumatic - Eye Exam Eyes:: Present: normal appearance both eyes and related structures - Neck Exam Neck:: Present: normal visual inspection - Respiratory Exam Respiratory:: Present: able to speak in complete sentences, no respiratory distress, normal respiratory effort, crackles - Cardiovascular Exam Cardiac:: Present: S1, S2 - GI Exam GI:: Present: soft - Skin Exam Skin: Present: warm - Neurological Exam Neurological: Present: alert, awake, normal cognition - Extremities Exam Extremities: Present: no cyanosis, no clubbing, edema - Psychiatric Exam Psychiatric: Present: normal affect Assessment and Plan (1) New onset atrial fibrillation Status: Acute Category: Medical Code(s): I48.91 - Unspecified atrial fibrillation (2) CHF exacerbation Status: Acute Qualifiers: Heart failure type: unspecified Qualified Code(s): I50.9 - Heart failure, unspecified Category: Medical Code(s): I50.9 - Heart failure, unspecified (3) Anxiety Status: Acute Category: Medical Code(s): F41.9 - Anxiety disorder, unspecified (4) Anemia Status: Acute Qualifiers: Anemia type: unspecified type Qualified Code(s): D64.9 - Anemia, unspecified Category: Medical Code(s): D64.9 - Anemia, unspecified (5) Obesity (BMI 30-39.9) Status: Acute Category: Medical Code(s): E66.9 - Obesity, unspecified (6) Cardiomyopathy Status: Acute Category: Medical Code(s): I42.9 - Cardiomyopathy, unspecified (7) HTN (hypertension) Status: Chronic Qualifiers: Hypertension type: essential hypertension Qualified Code(s): I10 - Essential (primary) hypertension Category: Medical Code(s): I10 - Essential (primary) hypertension (8) SOB (shortness of breath) Status: Acute Category: Medical Code(s): R06.02 - Shortness of breath (9) CAD (coronary artery disease) Status: Chronic Qualifiers: Coronary Disease-Associated Artery/Lesion type: [place] artery [place] vs. transplanted heart: [place] heart Associated angina: without angina Qualified Code(s): I25.10 - Atherosclerotic heart disease of [place] coronary artery without angina pectoris Category: Medical Code(s): I25.10 - Atherosclerotic heart disease of [place] coronary artery without angina pectoris (10) Renal insufficiency Status: Acute Category: Medical Code(s): N28.9 - Disorder of kidney and ureter, unspecified (11) Dysphagia Status: Acute Category: Medical Code(s): R13.10 - Dysphagia, unspecified (12) COVID-19 with pulmonary comorbidity Status: Acute Category: Medical Code(s): U07.1 - COVID-19; J98.4 - Other disorders of lung - Assessment and plan all Dx Assessment and Plan for all problems:: #Acute on chronic hypoxic respiratory failure: # Shortness of breath: #Hospital-acquired pneumonia: #COVID-19 pneumonia: 85-year-old female no significant smoking history, no personal history or family history of asthma or allergies, carries a diagnosis of congestive heart failure presented worsening CHF exacerbation and new onset atrial fibrillation. Patient also usilg 2 liters long-term oxygen therapy at home. Patient also using Spiriva along with albuterol as needed as per chart review however patient is not clear name of the inhaler but she is using an inhaler twice a day. Patient respiratory status gradually declined in the last 48 hours with oxygen requirements escalated from nasal cannula to high flow nasal cannula and eventually to BiPAP. Chest x-ray showed bilateral worsening infiltrates/worsening pleural effusions with atelectasis. Repeat BNP is still elevated at 12,000. Patient has been receiving Xarelto since admission for her atr
--- NOTE | 2020-07-26 16:55 | DIET.NUTRFU ---
Addendum entered by Isaura Angel 08/02/20 15:58: PO intakes ~25%, weight up 4#, bowels normal. Continuing current nutritional care plan, no changes at this time. Addendum entered by Isaura Angel 07/30/20 15:38: Pt improving- has been able to eat around 50%. Still c/o sore throat, CAR WASH ATTENDANT saw her today and altered diet to pureed as this may be easier on her throat, small bites/sips encouraged as well. BG remains elevated around 180, weight stable, bowels normal. No changes nutritional care plan at this time, continues with regular puree diet + TID supplements and gatorade. Continued encouragement/cueing appreciated, continue aspiration precautions. Addendum entered by Isaura Angel 07/28/20 15:34: Pt has been seen by speech and given soft mechanical diet. Pt c/o sore throat and swallowing difficulty with first 3 meals attempted- only able to eat 10-25%, she states I cant, feels like its getting stuck. CAR WASH ATTENDANT f/u today and recommended continue same diet. BG remains elevated- avg. 180, weight stable, she had a BM today. Soft modifications for ease of eating, TID supplements and gatorade on diet order. Original Note: Pt with good tolerations NG tube feedings of Pulmocare 1.5 at goal rate of 33ml/h. Weight stable, BG elevated- avg. 180, no BM since 07/23. No changes to regimen in diet order. Nutritional care plan to transition to meeting needs through PO intake/supplements pending speech eval when pt is able to decrease Bipap use. Continuing to monitor.
--- NOTE | 2020-07-26 20:23 | PC.NURSE ---
Pt alert to person, place and situation most of time. Pt is more confused at this time and pulled out one of her IV's and NG tube. Chang Moore APRN mentioned pulling NG soon anyway. Have paged Dr. Montero telephone recorder for Dr. Alamo and made him aware that pt pulled out one IV and NG tube, he stated it could be left out at this time, since it may be pulled soon anyway. Have given report to Hanny Cuevas RN. Continues on 5 L NC at this time. Pt remains in airborne precautions. CB in reach. Gown and bed changed, Has had loose bm's this shift and been uncontrolled afib on tele. Other VSS.
[2020-07-27] VITALS (14 sets, daily range): BP systolic 132–170; BP diastolic 63–94; PULSE 62–119; RESP 14–24; TEMP 36.5–36.7; O2SAT 91–99; BMI 33.1
--- NOTE | 2020-07-27 01:32 | PC.NURSE ---
She continues in contact and airborne precautions. She wore a bipap at 30% FiO2 for a short period of time. Her NG and an IV were dislodged at shift change. Dayshift nurse contacted fabrication and assembly supervisor MD and stated it was okay not to insert another NG. She was able to take her medications crushed in applesauce. She talked her daughter on the phone.
--- NOTE | 2020-07-27 04:24 | PC.NURSE ---
She has slept with bipap on at 30% FiO2.
[2020-07-27 06:57] LABS: Basophils % 0.1 % (0.1-2.0); Eosinophils # 0.1 K/mm3 (0.0-0.4); Eosinophils % 0.5 % (0.1-12.0); Hematocrit 29.2 % (37.0-47.0); Hemoglobin 9.3 g/dL (12.2-16.2); Lymphocytes % 7.5 % (10-50); Mean Corpuscular HGB Conc 31.8 g/dL (31.8-35.4); Mean Corpuscular Hemoglobin 28.3 pg (27.0-31.2); Mean Platelet Volume 9.6 fl (7.4-10.4); Monocytes # 1.1 K/mm3 (0.1-1.0); Monocytes % 7.9 % (1.7-9.3); Neutrophils # 11.3 K/mm3 (1.8-7.8); Neutrophils % 83.9 % (37.0-80.0); Platelet Count 222 K/mm3 (142-424); Red Blood Count 3.28 M/mm3 (4.20-5.40); Red Cell Distribution Width 15.3 % (11.5-17.5); White Blood Count 13.4 K/mm3 (4.8-10.8)
[2020-07-27 07:06] LABS: Anion Gap 11.3 mEq/L (5-15); Calcium 8.9 mg/dl (8.4-10.2); Carbon Dioxide 24 mmol/L (22.0-30.0); Chloride 104 mmol/L (98-107); Creatinine Clearance Estimated 32 mL/min (50-200); Estimated Glomerular Filt Rate 31 ml/min (>60); GFR (African American) 37 ML/MIN (>60); Glucose 166 mg/dl (74-100); Potassium 5.3 mmoL/L (3.5-5.1); Sodium 134 mmol/L (136-145)
[2020-07-27 07:14] LABS: Blood Urea Nitrogen 90 mg/dl (7-17)
--- NOTE | 2020-07-27 09:35 | PC.NURSE ---
Bipap switched to 3L NC. O2 sat currently 96%.
--- NOTE | 2020-07-27 09:57 | HMH.PULMPN ---
Internal Medicine - PN: Subj *Date: 07/27/20 *Time: 09:57 Interval history: Patient respiratory status continued to improve. No acute events overnight. Patient denies any new complaints. Exam - Constitutional Constitutional:: Present: no acute distress, comfortable - HENMT Exam HENMT: Present: normocephalic, atraumatic - Eye Exam Eyes:: Present: normal appearance both eyes and related structures - Neck Exam Neck:: Present: normal visual inspection - Respiratory Exam Respiratory:: Present: able to speak in complete sentences, no respiratory distress, crackles. Absent: wheezing - Cardiovascular Exam Cardiac:: Present: S1, S2 - GI Exam GI:: Present: soft - Skin Exam Skin: Present: warm, no rash - Neurological Exam Neurological: Present: alert, awake, normal cognition - Extremities Exam Extremities: Present: no cyanosis, no clubbing, edema Assessment and Plan (1) New onset atrial fibrillation Status: Acute Category: Medical Code(s): I48.91 - Unspecified atrial fibrillation (2) CHF exacerbation Status: Acute Qualifiers: Heart failure type: unspecified Qualified Code(s): I50.9 - Heart failure, unspecified Category: Medical Code(s): I50.9 - Heart failure, unspecified (3) Anxiety Status: Acute Category: Medical Code(s): F41.9 - Anxiety disorder, unspecified (4) Anemia Status: Acute Qualifiers: Anemia type: unspecified type Qualified Code(s): D64.9 - Anemia, unspecified Category: Medical Code(s): D64.9 - Anemia, unspecified (5) Obesity (BMI 30-39.9) Status: Acute Category: Medical Code(s): E66.9 - Obesity, unspecified (6) Cardiomyopathy Status: Acute Category: Medical Code(s): I42.9 - Cardiomyopathy, unspecified (7) HTN (hypertension) Status: Chronic Qualifiers: Hypertension type: essential hypertension Qualified Code(s): I10 - Essential (primary) hypertension Category: Medical Code(s): I10 - Essential (primary) hypertension (8) SOB (shortness of breath) Status: Acute Category: Medical Code(s): R06.02 - Shortness of breath (9) CAD (coronary artery disease) Status: Chronic Qualifiers: Coronary Disease-Associated Artery/Lesion type: [place] artery [place] vs. transplanted heart: [place] heart Associated angina: without angina Qualified Code(s): I25.10 - Atherosclerotic heart disease of [place] coronary artery without angina pectoris Category: Medical Code(s): I25.10 - Atherosclerotic heart disease of [place] coronary artery without angina pectoris (10) Renal insufficiency Status: Acute Category: Medical Code(s): N28.9 - Disorder of kidney and ureter, unspecified (11) Dysphagia Status: Acute Category: Medical Code(s): R13.10 - Dysphagia, unspecified (12) COVID-19 with pulmonary comorbidity Status: Acute Category: Medical Code(s): U07.1 - COVID-19; J98.4 - Other disorders of lung - Assessment and plan all Dx Assessment and Plan for all problems:: #Acute on chronic hypoxic respiratory failure: # Shortness of breath: #Hospital-acquired pneumonia: #COVID-19 pneumonia: 85-year-old female no significant smoking history, no personal history or family history of asthma or allergies, carries a diagnosis of congestive heart failure presented worsening CHF exacerbation and new onset atrial fibrillation. Patient also usilg 2 liters long-term oxygen therapy at home. Patient also using Spiriva along with albuterol as needed as per chart review however patient is not clear name of the inhaler but she is using an inhaler twice a day. Patient respiratory status gradually declined in the last 48 hours with oxygen requirements escalated from nasal cannula to high flow nasal cannula and eventually to BiPAP. Chest x-ray showed bilateral worsening infiltrates/worsening pleural effusions with atelectasis. Repeat BNP is still elevated at 12,000. Patient has been receiving Xarelto since admission for he
--- NOTE | 2020-07-27 11:14 | HMH.ACPN2 ---
Internal Medicine - PN: Subj *Date: 07/27/20 *Time: 11:18 Interval history: 85-year-old female patient resting quietly in bed, BiPAP is intact. Patient reports she is feeling better and slept well last night, nursing reports she tolerated BiPAP entire night. Patient requesting to remove BiPAP now, instructed nursing to place 5 L per nasal cannula and monitor. NG tube became dislodged during the night, on-call physician was paged and NG was left out Exam Vital signs and Labs for Last 24 Hours: Temp Pulse Resp BP Pulse Ox 97.9 F 90 20 137/63 91 L 07/27/20 08:00 07/27/20 08:00 07/27/20 08:00 07/27/20 08:00 07/27/20 08:00 Laboratory Results - last 24 hr 07/27/20 06:25: WBC 13.4 H D, RBC 3.28 L, Hgb 9.3 L, Hct 29.2 L, MCV 89.0, MCH 28.3, MCHC 31.8, RDW 15.3, Plt Count 222, MPV 9.6, Neut % (Auto) 83.9 H, Lymph % (Auto) 7.5 L, [place] % (Auto) 7.9, Eos % (Auto) 0.5, Baso % (Auto) 0.1, Neut # (Auto) 11.3 H, Lymph # (Auto) 1.0, [place] # (Auto) 1.1 H, Eos # (Auto) 0.1, Baso # (Auto) 0.0 07/27/20 06:25: Sodium 134 L, Potassium 5.3 H, Chloride 104, Carbon Dioxide 24, Anion Gap 11.3, BUN 90 H, Creatinine 1.60 H, Estimated Creat Clear 32, Estimated GFR 31 L, Est GFR ( Amer) 37 L, Glucose 166 H, Calcium 8.9 I & O for Last 24 hours: Intake & Output 07/24/20 07/25/20 07/26/20 07/27/20 23:59 23:59 23:59 23:59 Intake Total 1080 / 1080 2803 / 2803 1865 / 1865 170 / 170 Output Total 425 / 1075 1350 / 1575 1125 / 1125 500 / 500 Balance 655 / 5 1453 / 1228 740 / 740 -330 / -330 Weight 179 lb 5 oz 180 lb 1 oz 182 lb 175 lb 7 oz Microbiology Reports for the Last 24 Hours: Microbiology 07/21/20 14:50 Blood Blood Culture - Final NO GROWTH AFTER 5 DAYS 07/21/20 14:05 Blood Blood Culture - Final NO GROWTH AFTER 5 DAYS - Constitutional no acute distress - *Routine Neck Exam Present: trachea midline. Absent: tracheal deviation - *Routine Respiratory Exam Present: crackles. Absent: accessory muscle use Comments: Crackles RLL - *Routine Cardiovascular Exam Present: RRR - *Routine Abdominal Exam Present: soft, normoactive bowel sounds. Absent: tenderness, distended - *Routine Extremities Exam Present: full ROM, pulses intact. Absent: cyanosis, clubbing, calf tenderness - *Routine Skin Exam Present: dry, warm. Absent: jaundice - *Routine Neurological Exam Present: alert. Absent: normal reflexes, pronator drift - Routine Psychiatric Exam Present: normal affect. Absent: visual hallucinations Assessment and Plan (1) New onset atrial fibrillation Status: Acute Category: Medical Code(s): I48.91 - Unspecified atrial fibrillation (2) CHF exacerbation Status: Acute Qualifiers: Heart failure type: unspecified Qualified Code(s): I50.9 - Heart failure, unspecified Category: Medical Code(s): I50.9 - Heart failure, unspecified (3) Anxiety Status: Acute Category: Medical Code(s): F41.9 - Anxiety disorder, unspecified (4) Anemia Status: Acute Qualifiers: Anemia type: unspecified type Qualified Code(s): D64.9 - Anemia, unspecified Category: Medical Code(s): D64.9 - Anemia, unspecified (5) Obesity (BMI 30-39.9) Status: Acute Category: Medical Code(s): E66.9 - Obesity, unspecified (6) Cardiomyopathy Status: Acute Category: Medical Code(s): I42.9 - Cardiomyopathy, unspecified (7) HTN (hypertension) Status: Chronic Qualifiers: Hypertension type: essential hypertension Qualified Code(s): I10 - Essential (primary) hypertension Category: Medical Code(s): I10 - Essential (primary) hypertension (8) SOB (shortness of breath) Status: Acute Category: Medical Code(s): R06.02 - Shortness of breath (9) CAD (coronary artery disease) Status: Chronic Qualifiers: Coronary Disease-Associated Artery/Lesion type: [place] artery [place] vs. transplanted heart
--- NOTE | 2020-07-27 23:05 | PC.NURSE ---
patient refusing bipap at this time.
[2020-07-28] VITALS (12 sets, daily range): BP systolic 117–159; BP diastolic 71–96; PULSE 80–130; RESP 17–25; TEMP 36.5–36.9; O2SAT 85–97; BMI 33.9
--- NOTE | 2020-07-28 01:03 | PC.NURSE ---
room air sat 86%
--- NOTE | 2020-07-28 04:46 | PC.NURSE ---
patient has rested well with o2 sats 92% on 2 lnc, has refused bipap. patient has been pleasantly confused throughout shift, increased after dark. patient has complained of sore throat. denies nausea, vomiting or diarrhea. repeatedly stating she thinks she is going to a different place with dr. hernandez in the morning.
[2020-07-28 06:35] LABS: Basophils % 0.1 % (0.1-2.0); Eosinophils # 0.1 K/mm3 (0.0-0.4); Eosinophils % 0.5 % (0.1-12.0); Hematocrit 28.5 % (37.0-47.0); Hemoglobin 8.9 g/dL (12.2-16.2); Lymphocytes # 0.9 K/mm3 (0.7-4.5); Lymphocytes % 6.4 % (10-50); Mean Corpuscular HGB Conc 31.2 g/dL (31.8-35.4); Mean Corpuscular Hemoglobin 27.8 pg (27.0-31.2); Mean Platelet Volume 9.7 fl (7.4-10.4); Monocytes # 1.3 K/mm3 (0.1-1.0); Monocytes % 8.8 % (1.7-9.3); Neutrophils # 12.3 K/mm3 (1.8-7.8); Neutrophils % 84.1 % (37.0-80.0); Platelet Count 244 K/mm3 (142-424); Red Cell Distribution Width 15.5 % (11.5-17.5); White Blood Count 14.6 K/mm3 (4.8-10.8)
[2020-07-28 06:47] LABS: Anion Gap 13.4 mEq/L (5-15); Carbon Dioxide 23 mmol/L (22.0-30.0); Chloride 103 mmol/L (98-107); Creatinine Clearance Estimated 35 mL/min (50-200); Estimated Glomerular Filt Rate 33 ml/min (>60); GFR (African American) 40 ML/MIN (>60); Glucose 220 mg/dl (74-100); Potassium 5.4 mmoL/L (3.5-5.1); Sodium 134 mmol/L (136-145)
[2020-07-28 07:16] LABS: Blood Urea Nitrogen 95 mg/dl (7-17)
--- NOTE | 2020-07-28 07:17 | PC.NURSE ---
Dr. Alamo notified of BUN 95
--- NOTE | 2020-07-28 08:30 | PC.NURSE ---
O2 sats hanging around 89% on 2L NC. O2 increased to 3L NC.
--- NOTE | 2020-07-28 08:59 | HMH.ACPN2 ---
Internal Medicine - PN: Subj *Date: 07/28/20 *Time: 09:18 Interval history: 85-year-old female patient sitting up in bed, she reports she had a better night last night with no respiratory distress. She is currently on 3 L per nasal cannula and oxygen saturation 93%. She does report some difficulty swallowing, she was on a mechanical soft diet and is tolerating liquids without any difficulty. Discussed with speech they will come up and see patient this morning Exam Vital signs and Labs for Last 24 Hours: Temp Pulse Resp BP Pulse Ox 98.4 F 99 H 17 149/82 H 93 L 07/28/20 08:00 07/28/20 08:00 07/28/20 08:00 07/28/20 08:00 07/28/20 06:15 Laboratory Results - last 24 hr 07/28/20 06:11: WBC 14.6 H, RBC 3.20 L, Hgb 8.9 L, Hct 28.5 L, MCV 89.0, MCH 27.8, MCHC 31.2 L, RDW 15.5, Plt Count 244, MPV 9.7, Neut % (Auto) 84.1 H, Lymph % (Auto) 6.4 L, Graham % (Auto) 8.8, Eos % (Auto) 0.5, Baso % (Auto) 0.1, Neut # (Auto) 12.3 H, Lymph # (Auto) 0.9, Graham # (Auto) 1.3 H, Eos # (Auto) 0.1, Baso # (Auto) 0.0 07/28/20 06:11: Sodium 134 L, Potassium 5.4 H, Chloride 103, Carbon Dioxide 23, Anion Gap 13.4, BUN 95 H, Creatinine 1.50 H, Estimated Creat Clear 35, Estimated GFR 33 L, Est GFR ( Amer) 40 L, Glucose 220 H D, Calcium 9.0 I & O for Last 24 hours: Intake & Output 07/25/20 07/26/20 07/27/20 07/28/20 23:59 23:59 23:59 23:59 Intake Total 2803 / 2803 1865 / 1865 660 / 660 150 / 150 Output Total 1350 / 1575 1125 / 1125 1200 / 1200 475 / 475 Balance 1453 / 1228 740 / 740 -540 / -540 -325 / -325 Weight 180 lb 1 oz 182 lb 175 lb 7 oz 179 lb 9 oz - Constitutional no acute distress - *Routine HEENT Exam Head: Present: normocephalic Eye: Present: EOMI ENT: Present: mucous membranes moist - *Routine Neck Exam Present: trachea midline. Absent: tracheal deviation - *Routine Respiratory Exam Present: CTA bilaterally - *Routine Cardiovascular Exam Present: RRR - *Routine Abdominal Exam Present: soft, normoactive bowel sounds. Absent: tenderness, rigid - *Routine Extremities Exam Present: full ROM, pulses intact. Absent: cyanosis, clubbing, edema, calf tenderness - *Routine Skin Exam Present: intact, dry, warm. Absent: cyanosis, erythema, jaundice - *Routine Neurological Exam Present: alert, oriented X3. Absent: pronator drift, altered mental status - Routine Psychiatric Exam Present: normal affect, normal thought process, auditory hallucinations. Absent: visual hallucinations Assessment and Plan (1) New onset atrial fibrillation Status: Acute Category: Medical Code(s): I48.91 - Unspecified atrial fibrillation (2) CHF exacerbation Status: Acute Qualifiers: Heart failure type: unspecified Qualified Code(s): I50.9 - Heart failure, unspecified Category: Medical Code(s): I50.9 - Heart failure, unspecified (3) Anxiety Status: Acute Category: Medical Code(s): F41.9 - Anxiety disorder, unspecified (4) Anemia Status: Acute Qualifiers: Anemia type: unspecified type Qualified Code(s): D64.9 - Anemia, unspecified Category: Medical Code(s): D64.9 - Anemia, unspecified (5) Obesity (BMI 30-39.9) Status: Acute Category: Medical Code(s): E66.9 - Obesity, unspecified (6) Cardiomyopathy Status: Acute Category: Medical Code(s): I42.9 - Cardiomyopathy, unspecified (7) HTN (hypertension) Status: Chronic Qualifiers: Hypertension type: essential hypertension Qualified Code(s): I10 - Essential (primary) hypertension Category: Medical Code(s): I10 - Essential (primary) hypertension (8) SOB (shortness of breath) Status: Acute Category: Medical Code(s): R06.02 - Shortness of breath (9) CAD (coronary artery disease) Status: Chronic Qualifiers: Coronary Disease-Associated Artery/Lesion type: [place] artery [place] vs. transplanted heart: [place] heart Associated angina: without angina Qualified Code(s): I25.10 - Atheroscl
--- NOTE | 2020-07-28 10:39 | PC.NURSE ---
pt up to chair.
--- NOTE | 2020-07-28 10:52 | PC.NURSE ---
O2 sat 85% on 3L NC. Increased liter flow to 4L NC.
--- NOTE | 2020-07-28 11:14 | HMH.PULMPN ---
Internal Medicine - PN: Subj *Date: 07/28/20 *Time: 11:14 Interval history: No acute respiratory vents overnight. Patient continued to improve. Denies any new respiratory complaints. Refused BiPAP overnight. Exam - Constitutional Constitutional:: Present: no acute distress, comfortable - HENMT Exam HENMT: Present: normocephalic, atraumatic - Eye Exam Eyes:: Present: normal appearance both eyes and related structures - Neck Exam Neck:: Present: normal visual inspection - Respiratory Exam Respiratory:: Present: able to speak in complete sentences, no respiratory distress, crackles - Cardiovascular Exam Cardiac:: Present: S1, S2 - GI Exam GI:: Present: soft - Skin Exam Skin: Present: warm, no rash, dry - Neurological Exam Neurological: Present: alert, awake, normal cognition - Extremities Exam Extremities: Present: no cyanosis, no clubbing, edema - Psychiatric Exam Psychiatric: Present: normal affect Assessment and Plan (1) New onset atrial fibrillation Status: Acute Category: Medical Code(s): I48.91 - Unspecified atrial fibrillation (2) CHF exacerbation Status: Acute Qualifiers: Heart failure type: unspecified Qualified Code(s): I50.9 - Heart failure, unspecified Category: Medical Code(s): I50.9 - Heart failure, unspecified (3) Anxiety Status: Acute Category: Medical Code(s): F41.9 - Anxiety disorder, unspecified (4) Anemia Status: Acute Qualifiers: Anemia type: unspecified type Qualified Code(s): D64.9 - Anemia, unspecified Category: Medical Code(s): D64.9 - Anemia, unspecified (5) Obesity (BMI 30-39.9) Status: Acute Category: Medical Code(s): E66.9 - Obesity, unspecified (6) Cardiomyopathy Status: Acute Category: Medical Code(s): I42.9 - Cardiomyopathy, unspecified (7) HTN (hypertension) Status: Chronic Qualifiers: Hypertension type: essential hypertension Qualified Code(s): I10 - Essential (primary) hypertension Category: Medical Code(s): I10 - Essential (primary) hypertension (8) SOB (shortness of breath) Status: Acute Category: Medical Code(s): R06.02 - Shortness of breath (9) CAD (coronary artery disease) Status: Chronic Qualifiers: Coronary Disease-Associated Artery/Lesion type: [place] artery [place] vs. transplanted heart: [place] heart Associated angina: without angina Qualified Code(s): I25.10 - Atherosclerotic heart disease of [place] coronary artery without angina pectoris Category: Medical Code(s): I25.10 - Atherosclerotic heart disease of [place] coronary artery without angina pectoris (10) Renal insufficiency Status: Acute Category: Medical Code(s): N28.9 - Disorder of kidney and ureter, unspecified (11) Dysphagia Status: Acute Category: Medical Code(s): R13.10 - Dysphagia, unspecified (12) COVID-19 with pulmonary comorbidity Status: Acute Category: Medical Code(s): U07.1 - COVID-19; J98.4 - Other disorders of lung - Assessment and plan all Dx Assessment and Plan for all problems:: #Acute on chronic hypoxic respiratory failure: # Shortness of breath: #Hospital-acquired pneumonia: #COVID-19 pneumonia: 85-year-old female no significant smoking history, no personal history or family history of asthma or allergies, carries a diagnosis of congestive heart failure presented worsening CHF exacerbation and new onset atrial fibrillation. Patient also usilg 2 liters long-term oxygen therapy at home. Patient also using Spiriva along with albuterol as needed as per chart review however patient is not clear name of the inhaler but she is using an inhaler twice a day. Patient respiratory status gradually declined in the last 48 hours with oxygen requirements escalated from nasal cannula to high flow nasal cannula and eventually to BiPAP. Chest x-ray showed bilateral worsening infiltrates/worsening pleural effusions with atelectasis. Repeat BNP is still elevated at
--- NOTE | 2020-07-28 14:38 | PC.NURSE ---
O2 sat sustaining 86% on 4L NC. Increased liter flow to 5L NC. O2 sat now 90% on 5L NC.
--- NOTE | 2020-07-28 16:52 | PC.NURSE ---
Assumed care of this pt @ [id number]
[2020-07-29] VITALS (13 sets, daily range): BP systolic 136–164; BP diastolic 66–96; PULSE 81–143; RESP 15–19; TEMP 36.4–36.9; O2SAT 86–96; BMI 34.2
--- NOTE | 2020-07-29 03:32 | PC.NURSE ---
pt was slightly anxious at beginning of shift prn med given. pt was restless and stated I cant sleep I am rattling in my chest to much. intermittent coughing at times and rhonchi and wheezes audible. after breathing treatment and prn medication pt rested quietly. alert and oriented. major in place and draining yellow urine with sediment. 5LNC at this time o2 sat 97% will attempt to wean o2. call light in reach. vss. will continue to monitor
[2020-07-29 07:07] LABS: Basophils % 0.2 % (0.1-2.0); Eosinophils % 0.1 % (0.1-12.0); Hematocrit 30.2 % (37.0-47.0); Hemoglobin 9.3 g/dL (12.2-16.2); Lymphocytes # 1.2 K/mm3 (0.7-4.5); Lymphocytes % 6.7 % (10-50); Mean Corpuscular HGB Conc 30.7 g/dL (31.8-35.4); Mean Corpuscular Hemoglobin 27.6 pg (27.0-31.2); Mean Corpuscular Volume 90.1 fl (81-99); Mean Platelet Volume 10.3 fl (7.4-10.4); Monocytes # 1.3 K/mm3 (0.1-1.0); Neutrophils # 15.6 K/mm3 (1.8-7.8); Neutrophils % 86.1 % (37.0-80.0); Platelet Count 272 K/mm3 (142-424); Red Blood Count 3.35 M/mm3 (4.20-5.40); Red Cell Distribution Width 16.2 % (11.5-17.5); White Blood Count 18.1 K/mm3 (4.8-10.8)
[2020-07-29 07:14] LABS: MANUAL DIFFERENTIAL MANUAL DIFFERENTIAL (MANUAL DIFF)
[2020-07-29 07:23] LABS: Anion Gap 11.9 mEq/L (5-15); Calcium 8.9 mg/dl (8.4-10.2); Carbon Dioxide 24 mmol/L (22.0-30.0); Chloride 104 mmol/L (98-107); Creatinine Clearance Estimated 36 mL/min (50-200); Estimated Glomerular Filt Rate 33 ml/min (>60); GFR (African American) 40 ML/MIN (>60); Glucose 172 mg/dl (74-100); Potassium 5.9 mmoL/L (3.5-5.1); Sodium 134 mmol/L (136-145)
[2020-07-29 08:05] LABS: Blood Urea Nitrogen 84 mg/dl (7-17)
--- NOTE | 2020-07-29 10:00 | HMH.ACPN2 ---
Internal Medicine - PN: Subj *Date: 07/29/20 *Time: 08:45 Interval history: pt sitting up in bed. Pt states she feels fine today. per staff pt has a decrease in o2 when she eats or drinks. pt is a &O x3. o2 in place Exam Vital signs and Labs for Last 24 Hours: Temp Pulse Resp BP Pulse Ox 97.7 F 116 H 19 151/92 H 92 L 07/29/20 07:38 07/29/20 08:00 07/29/20 08:01 07/29/20 07:38 07/29/20 08:00 Laboratory Results - last 24 hr 07/29/20 05:40: WBC 18.1 H, RBC 3.35 L, Hgb 9.3 L, Hct 30.2 L, MCV 90.1, MCH 27.6, MCHC 30.7 L, RDW 16.2, Plt Count 272, MPV 10.3, Neut % (Auto) 86.1 H, Lymph % (Auto) 6.7 L, [place] % (Auto) 7.0, Eos % (Auto) 0.1, Baso % (Auto) 0.2, Neut # (Auto) 15.6 H, Lymph # (Auto) 1.2, [place] # (Auto) 1.3 H, Eos # (Auto) 0.0, Baso # (Auto) 0.0 07/29/20 05:40: Sodium 134 L, Potassium 5.9 H, Chloride 104, Carbon Dioxide 24, Anion Gap 11.9, BUN 84 H, Creatinine 1.50 H, Estimated Creat Clear 36, Estimated GFR 33 L, Est GFR ( Amer) 40 L, Glucose 172 H D, Calcium 8.9 I & O for Last 24 hours: Intake & Output 07/26/20 07/27/20 07/28/20 07/29/20 11:59 11:59 11:59 11:59 Intake Total 4135 / 4135 703 / 703 640 / 640 535 / 535 Output Total 775 / 775 1400 / 1400 1175 / 1175 550 / 550 Balance 3360 / 3360 -697 / -697 -535 / -535 -15 / -15 Weight 182 lb 175 lb 7 oz 179 lb 9 oz 181 lb 4 oz - Constitutional no acute distress - *Routine HEENT Exam Head: Present: normocephalic Eye: Present: PERRL ENT: Present: mucous membranes moist - *Routine Neck Exam Present: supple. Absent: lymphadenopathy - *Routine Respiratory Exam Present: rhonchi - *Routine Cardiovascular Exam Present: RRR - *Routine Abdominal Exam Present: soft, normoactive bowel sounds. Absent: tenderness - *Routine Extremities Exam Present: normal capillary refill. Absent: cyanosis, clubbing, edema - *Routine Skin Exam Present: warm. Absent: rash - *Routine Neurological Exam Present: alert, oriented X3 - Routine Psychiatric Exam Present: normal affect Assessment and Plan (1) New onset atrial fibrillation Status: Acute Category: Medical Code(s): I48.91 - Unspecified atrial fibrillation (2) CHF exacerbation Status: Acute Qualifiers: Heart failure type: unspecified Qualified Code(s): I50.9 - Heart failure, unspecified Category: Medical Code(s): I50.9 - Heart failure, unspecified (3) Anxiety Status: Acute Category: Medical Code(s): F41.9 - Anxiety disorder, unspecified (4) Anemia Status: Acute Qualifiers: Anemia type: unspecified type Qualified Code(s): D64.9 - Anemia, unspecified Category: Medical Code(s): D64.9 - Anemia, unspecified (5) Obesity (BMI 30-39.9) Status: Acute Category: Medical Code(s): E66.9 - Obesity, unspecified (6) Cardiomyopathy Status: Acute Category: Medical Code(s): I42.9 - Cardiomyopathy, unspecified (7) HTN (hypertension) Status: Chronic Qualifiers: Hypertension type: essential hypertension Qualified Code(s): I10 - Essential (primary) hypertension Category: Medical Code(s): I10 - Essential (primary) hypertension (8) SOB (shortness of breath) Status: Acute Category: Medical Code(s): R06.02 - Shortness of breath (9) CAD (coronary artery disease) Status: Chronic Qualifiers: Coronary Disease-Associated Artery/Lesion type: [place] artery [place] vs. transplanted heart: [place] heart Associated angina: without angina Qualified Code(s): I25.10 - Atherosclerotic heart disease of [place] coronary artery without angina pectoris Category: Medical Code(s): I25.10 - Atherosclerotic heart disease of [place] coronary artery without angina pectoris (10) Renal insufficiency Status: Acute Category: Medical Code(s): N28.9 - Disorder of kidney and ureter, unspecified (11) Dysphagia Status: Acute Category: Medical Code(s): R13.10 - Dysphagia, unspecified (12) COVID-19 with pulmonary comorbi
[2020-07-29 10:46] LABS: Lymphocytes % 9 % (10-50); Monocytes % 4 % (2-9); Neutrophils % 87 % (42-76); Platelet Estimate Normal; RBC Morphology Normal; Total Cells Counted 100
--- NOTE | 2020-07-29 11:15 | HMH.PULMPN ---
Internal Medicine - PN: Subj *Date: 07/29/20 *Time: 11:15 Interval history: No acute respiratory events overnight. Exam - Constitutional Constitutional:: Present: no acute distress, comfortable - HENMT Exam HENMT: Present: normocephalic, moist mucous membranes - Eye Exam Eyes:: Present: normal appearance both eyes and related structures - Neck Exam Neck:: Present: normal visual inspection - Respiratory Exam Respiratory:: Present: able to speak in complete sentences, no respiratory distress, normal respiratory effort, crackles - Cardiovascular Exam Cardiac:: Present: S1, S2 - GI Exam GI:: Present: soft - Skin Exam Skin: Present: warm, no rash - Neurological Exam Neurological: Present: alert, awake, normal cognition - Extremities Exam Extremities: Present: no cyanosis, no clubbing, edema Assessment and Plan (1) New onset atrial fibrillation Status: Acute Category: Medical Code(s): I48.91 - Unspecified atrial fibrillation (2) CHF exacerbation Status: Acute Qualifiers: Heart failure type: unspecified Qualified Code(s): I50.9 - Heart failure, unspecified Category: Medical Code(s): I50.9 - Heart failure, unspecified (3) Anxiety Status: Acute Category: Medical Code(s): F41.9 - Anxiety disorder, unspecified (4) Anemia Status: Acute Qualifiers: Anemia type: unspecified type Qualified Code(s): D64.9 - Anemia, unspecified Category: Medical Code(s): D64.9 - Anemia, unspecified (5) Obesity (BMI 30-39.9) Status: Acute Category: Medical Code(s): E66.9 - Obesity, unspecified (6) Cardiomyopathy Status: Acute Category: Medical Code(s): I42.9 - Cardiomyopathy, unspecified (7) HTN (hypertension) Status: Chronic Qualifiers: Hypertension type: essential hypertension Qualified Code(s): I10 - Essential (primary) hypertension Category: Medical Code(s): I10 - Essential (primary) hypertension (8) SOB (shortness of breath) Status: Acute Category: Medical Code(s): R06.02 - Shortness of breath (9) CAD (coronary artery disease) Status: Chronic Qualifiers: Coronary Disease-Associated Artery/Lesion type: [place] artery [place] vs. transplanted heart: [place] heart Associated angina: without angina Qualified Code(s): I25.10 - Atherosclerotic heart disease of [place] coronary artery without angina pectoris Category: Medical Code(s): I25.10 - Atherosclerotic heart disease of [place] coronary artery without angina pectoris (10) Renal insufficiency Status: Acute Category: Medical Code(s): N28.9 - Disorder of kidney and ureter, unspecified (11) Dysphagia Status: Acute Category: Medical Code(s): R13.10 - Dysphagia, unspecified (12) COVID-19 with pulmonary comorbidity Status: Acute Category: Medical Code(s): U07.1 - COVID-19; J98.4 - Other disorders of lung - Assessment and plan all Dx Assessment and Plan for all problems:: #Acute on chronic hypoxic respiratory failure: # Shortness of breath: #Hospital-acquired pneumonia: #COVID-19 pneumonia: 85-year-old female no significant smoking history, no personal history or family history of asthma or allergies, carries a diagnosis of congestive heart failure presented worsening CHF exacerbation and new onset atrial fibrillation. Patient also usilg 2 liters long-term oxygen therapy at home. Patient also using Spiriva along with albuterol as needed as per chart review however patient is not clear name of the inhaler but she is using an inhaler twice a day. Patient respiratory status gradually declined in the last 48 hours with oxygen requirements escalated from nasal cannula to high flow nasal cannula and eventually to BiPAP. Chest x-ray showed bilateral worsening infiltrates/worsening pleural effusions with atelectasis. Repeat BNP is still elevated at 12,000. Patient has been receiving Xarelto since admission for her atrial fibrillation that was changed to heparin. Parviz
--- NOTE | 2020-07-29 15:58 | PC.NURSE ---
No acute changes this shift. SPO2 ranging 88-93% on 4 L nasal cannula. She did require increase of O2 to 5 L for brief period of time after PT worked w/ pt. Pt's sat had decreased to low-mid 80's w/ exertion and took about 20 minutes to recover from this. Pt was assisted up to chair for brief period of time, tolerated activity w/ no complaints. Pt denies being SOA during these periods of desat. Lungs noted to be coarse throughout. Remains in AFib on tely. HR ranging 90-120 when awake and active. Abdomen soft, non-tender w/ active BS in al quads. Pt was incontinent of bowels this AM. No BM since kayexalate admin this morning. Garcia cath to drain @ bedside w/ yellow sediment urine. She received a bath and linen change this shift. Skin remains intact. Heels floating. Q2H turn. Oral care provided. Pt has had a good portion of each meal independently. Ensures encouraged. Daughter, Zina, updated on pt's plan of care. Call ayala w/in reach. Bedl alarm in place.
[2020-07-30] VITALS (21 sets, daily range): BP systolic 142–170; BP diastolic 75–103; PULSE 90–137; RESP 14–26; TEMP 36.4–36.5; O2SAT 85–97; BMI 34.2
--- NOTE | 2020-07-30 03:43 | PC.NURSE ---
NO acute changes overnight. A&O. Pt has slept well this shift. Lungs are diminished, on 4L NC. PT has tolerated oxygen well, sats have been above 90 this shift. Pt has not c/o of SOA or pain this shift. Garcia in place draining clear yellow urine. Bowel soudns x4, abd soft and nontender. No BM this shift. VSS, call light in reach, no concerns at this time.
[2020-07-30 06:21] LABS: Basophils % 0.2 % (0.1-2.0); Eosinophils % 0.2 % (0.1-12.0); Hematocrit 30.6 % (37.0-47.0); Hemoglobin 9.6 g/dL (12.2-16.2); Lymphocytes # 1.4 K/mm3 (0.7-4.5); Lymphocytes % 7.7 % (10-50); Mean Corpuscular HGB Conc 31.3 g/dL (31.8-35.4); Mean Corpuscular Hemoglobin 28.1 pg (27.0-31.2); Mean Corpuscular Volume 89.7 fl (81-99); Mean Platelet Volume 10.2 fl (7.4-10.4); Monocytes # 1.2 K/mm3 (0.1-1.0); Monocytes % 6.7 % (1.7-9.3); Neutrophils # 15.5 K/mm3 (1.8-7.8); Neutrophils % 85.3 % (37.0-80.0); Platelet Count 301 K/mm3 (142-424); Red Blood Count 3.41 M/mm3 (4.20-5.40); Red Cell Distribution Width 16.3 % (11.5-17.5); White Blood Count 18.2 K/mm3 (4.8-10.8)
[2020-07-30 06:31] LABS: Anion Gap 10.6 mEq/L (5-15); Calcium 8.7 mg/dl (8.4-10.2); Carbon Dioxide 22 mmol/L (22.0-30.0); Chloride 107 mmol/L (98-107); Creatinine Clearance Estimated 38 mL/min (50-200); Estimated Glomerular Filt Rate 36 ml/min (>60); GFR (African American) 43 ML/MIN (>60); Glucose 163 mg/dl (74-100); Potassium 5.6 mmoL/L (3.5-5.1); Sodium 134 mmol/L (136-145)
[2020-07-30 06:33] LABS: MANUAL DIFFERENTIAL MANUAL DIFFERENTIAL (MANUAL DIFF)
[2020-07-30 06:39] LABS: Blood Urea Nitrogen 78 mg/dl (7-17)
[2020-07-30 09:04] LABS: Lymphocytes % 8 % (10-50); Monocytes % 7 % (2-9); Neutrophils % 85 % (42-76); Platelet Estimate Normal; RBC Morphology Normal; Total Cells Counted 100
--- NOTE | 2020-07-30 10:19 | HMH.ACPN2 ---
Internal Medicine - PN: Subj *Date: 07/30/20 *Time: 09:00 Interval history: pt sitting up in bed eating breakfast. Exam Vital signs and Labs for Last 24 Hours: Temp Pulse Resp BP Pulse Ox 97.7 F 110 H 16 170/99 H 89 L 07/30/20 03:44 07/30/20 06:29 07/30/20 03:44 07/30/20 03:44 07/30/20 06:29 Laboratory Results - last 24 hr 07/29/20 05:40: Total Counted 100, Neutrophils % (Manual) 87 H, Lymphocytes % (Manual) 9 L, Monocytes % (Manual) 4, Platelet Estimate Normal, RBC Morphology Normal 07/30/20 05:30: WBC 18.2 H, RBC 3.41 L, Hgb 9.6 L, Hct 30.6 L, MCV 89.7, MCH 28.1, MCHC 31.3 L, RDW 16.3, Plt Count 301, MPV 10.2, Neut % (Auto) 85.3 H, Lymph % (Auto) 7.7 L, [place] % (Auto) 6.7, Eos % (Auto) 0.2, Baso % (Auto) 0.2, Neut # (Auto) 15.5 H, Lymph # (Auto) 1.4, [place] # (Auto) 1.2 H, Eos # (Auto) 0.0, Baso # (Auto) 0.0, Total Counted 100, Neutrophils % (Manual) 85 H, Lymphocytes % (Manual) 8 L, Monocytes % (Manual) 7, Platelet Estimate Normal, RBC Morphology Normal 07/30/20 05:30: Sodium 134 L, Potassium 5.6 H, Chloride 107, Carbon Dioxide 22, Anion Gap 10.6, BUN 78 H, Creatinine 1.40 H, Estimated Creat Clear 38, Estimated GFR 36 L, Est GFR ( Amer) 43 L, Glucose 163 H, Calcium 8.7 I & O for Last 24 hours: Intake & Output 07/27/20 07/28/20 07/29/20 07/30/20 11:59 11:59 11:59 11:59 Intake Total 703 / 703 640 / 640 535 / 535 678 / 678 Output Total 1400 / 1400 1175 / 1175 550 / 550 950 / 950 Balance -697 / -697 -535 / -535 -15 / -15 -272 / -272 Weight 175 lb 7 oz 179 lb 9 oz 181 lb 4 oz 181 lb 7.047 oz - Constitutional no acute distress, chronically ill appearing - *Routine HEENT Exam Head: Present: normocephalic Eye: Present: PERRL ENT: Present: mucous membranes moist - *Routine Neck Exam Present: supple. Absent: lymphadenopathy - *Routine Respiratory Exam Present: wheezes - *Routine Cardiovascular Exam Present: RRR - *Routine Abdominal Exam Present: soft, normoactive bowel sounds. Absent: tenderness - *Routine Extremities Exam Present: normal capillary refill. Absent: cyanosis, clubbing, edema - *Routine Skin Exam Present: warm. Absent: rash - *Routine Neurological Exam Present: alert, oriented X3 - Routine Psychiatric Exam Present: normal affect Assessment and Plan (1) New onset atrial fibrillation Status: Acute Category: Medical Code(s): I48.91 - Unspecified atrial fibrillation (2) CHF exacerbation Status: Acute Qualifiers: Heart failure type: unspecified Qualified Code(s): I50.9 - Heart failure, unspecified Category: Medical Code(s): I50.9 - Heart failure, unspecified (3) Anxiety Status: Acute Category: Medical Code(s): F41.9 - Anxiety disorder, unspecified (4) Anemia Status: Acute Qualifiers: Anemia type: unspecified type Qualified Code(s): D64.9 - Anemia, unspecified Category: Medical Code(s): D64.9 - Anemia, unspecified (5) Obesity (BMI 30-39.9) Status: Acute Category: Medical Code(s): E66.9 - Obesity, unspecified (6) Cardiomyopathy Status: Acute Category: Medical Code(s): I42.9 - Cardiomyopathy, unspecified (7) HTN (hypertension) Status: Chronic Qualifiers: Hypertension type: essential hypertension Qualified Code(s): I10 - Essential (primary) hypertension Category: Medical Code(s): I10 - Essential (primary) hypertension (8) SOB (shortness of breath) Status: Acute Category: Medical Code(s): R06.02 - Shortness of breath (9) CAD (coronary artery disease) Status: Chronic Qualifiers: Coronary Disease-Associated Artery/Lesion type: [place] artery [place] vs. transplanted heart: [place] heart Associated angina: without angina Qualified Code(s): I25.10 - Atherosclerotic heart disease of [place] coronary artery without angina pectoris Category: Medical Code(s): I25.10 - Atherosclerotic heart disease of [place] coronary artery without angina pectoris (10) Renal insuffi
--- NOTE | 2020-07-30 14:15 | PC.NURSE ---
spoke with Urvashi Zavala about reconsult on pt. per nallely increase diltiazem to 120mg bid.
--- NOTE | 2020-07-30 14:55 | HMH.PULMPN ---
Internal Medicine - PN: Subj *Date: 07/30/20 *Time: 15:56 Interval history: No acute respiratory events overnight. Patient denies any new complaints. Exam - Constitutional Constitutional:: Present: no acute distress, comfortable - HENMT Exam HENMT: Present: normocephalic - Eye Exam Eyes:: Present: normal appearance both eyes and related structures - Neck Exam Neck:: Present: normal visual inspection - Respiratory Exam Respiratory:: Present: able to speak in complete sentences, respiratory distress, crackles - Cardiovascular Exam Cardiac:: Present: S1, S2 - GI Exam GI:: Present: soft - Skin Exam Skin: Present: warm, no rash - Neurological Exam Neurological: Present: alert, awake, normal cognition - Extremities Exam Extremities: Present: no cyanosis, no clubbing, edema - Psychiatric Exam Psychiatric: Present: normal affect Assessment and Plan (1) New onset atrial fibrillation Status: Acute Category: Medical Code(s): I48.91 - Unspecified atrial fibrillation (2) CHF exacerbation Status: Acute Qualifiers: Qualified Code(s): I50.9 - Heart failure, unspecified Category: Medical Code(s): I50.9 - Heart failure, unspecified (3) Anxiety Status: Acute Category: Medical Code(s): F41.9 - Anxiety disorder, unspecified (4) Anemia Status: Acute Qualifiers: Qualified Code(s): D64.9 - Anemia, unspecified Category: Medical Code(s): D64.9 - Anemia, unspecified (5) Obesity (BMI 30-39.9) Status: Acute Category: Medical Code(s): E66.9 - Obesity, unspecified (6) Cardiomyopathy Status: Acute Category: Medical Code(s): I42.9 - Cardiomyopathy, unspecified (7) HTN (hypertension) Status: Chronic Qualifiers: Qualified Code(s): I10 - Essential (primary) hypertension Category: Medical Code(s): I10 - Essential (primary) hypertension (8) SOB (shortness of breath) Status: Acute Category: Medical Code(s): R06.02 - Shortness of breath (9) CAD (coronary artery disease) Status: Chronic Qualifiers: Qualified Code(s): I25.10 - Atherosclerotic heart disease of [place] coronary artery without angina pectoris Category: Medical Code(s): I25.10 - Atherosclerotic heart disease of [place] coronary artery without angina pectoris (10) Renal insufficiency Status: Acute Category: Medical Code(s): N28.9 - Disorder of kidney and ureter, unspecified (11) Dysphagia Status: Acute Category: Medical Code(s): R13.10 - Dysphagia, unspecified (12) COVID-19 with pulmonary comorbidity Status: Acute Category: Medical Code(s): U07.1 - COVID-19; J98.4 - Other disorders of lung - Assessment and plan all Dx Assessment and Plan for all problems:: #Acute on chronic hypoxic respiratory failure: # Shortness of breath: #Hospital-acquired pneumonia: #COVID-19 pneumonia: 85-year-old female no significant smoking history, no personal history or family history of asthma or allergies, carries a diagnosis of congestive heart failure presented worsening CHF exacerbation and new onset atrial fibrillation. Patient also usilg 2 liters long-term oxygen therapy at home. Patient also using Spiriva along with albuterol as needed as per chart review however patient is not clear name of the inhaler but she is using an inhaler twice a day. Patient respiratory status gradually declined in the last 48 hours with oxygen requirements escalated from nasal cannula to high flow nasal cannula and eventually to BiPAP. Chest x-ray showed bilateral worsening infiltrates/worsening pleural effusions with atelectasis. Repeat BNP is still elevated at 12,000. Patient has been receiving Xarelto since admission for her atrial fibrillation that was changed to heparin. Patient also diagnosed with COVID-19 pneumonia on her recent PCR & chest CT WO showed bilateral lower lobe consolidation / atelectasis right more than left along with pleural effusion. Patient was initiated on treatmen
--- NOTE | 2020-07-30 15:52 | P.PN_ITS ---
Subjective Date: 07/30/20 Time: 15:52 Principal diagnosis: Afib, chf Interval history: 85-year-old white female now in the ICU with Covid. Patient requiring more oxygen due to hypoxemia. Cardiology asked to revisit the patient for rate control of her atrial fibrillation. Heart rates in the 130s with elevated blood pressure. Patient complaining of chest discomfort with breathing and some difficulty taking deep breaths. She also relates a dizzy sensation and head ache. Patient was seen in conjunction with Dr. Lopez who states that the patient is improved compared to this morning. Exam Vital signs and Labs for Last 24 Hours: Temp Pulse Resp BP Pulse Ox 97.5 F L 128 H 20 155/91 H 95 07/30/20 15:49 07/30/20 10:16 07/30/20 10:16 07/30/20 10:16 07/30/20 10:16 Laboratory Results - last 24 hr 07/30/20 05:30: WBC 18.2 H, RBC 3.41 L, Hgb 9.6 L, Hct 30.6 L, MCV 89.7, MCH 28.1, MCHC 31.3 L, RDW 16.3, Plt Count 301, MPV 10.2, Neut % (Auto) 85.3 H, Lymph % (Auto) 7.7 L, [place] % (Auto) 6.7, Eos % (Auto) 0.2, Baso % (Auto) 0.2, Neut # (Auto) 15.5 H, Lymph # (Auto) 1.4, [place] # (Auto) 1.2 H, Eos # (Auto) 0.0, Baso # (Auto) 0.0, Total Counted 100, Neutrophils % (Manual) 85 H, Lymphocytes % (Manual) 8 L, Monocytes % (Manual) 7, Platelet Estimate Normal, RBC Morphology Normal 07/30/20 05:30: Sodium 134 L, Potassium 5.6 H, Chloride 107, Carbon Dioxide 22, Anion Gap 10.6, BUN 78 H, Creatinine 1.40 H, Estimated Creat Clear 38, Estimated GFR 36 L, Est GFR ( Amer) 43 L, Glucose 163 H, Calcium 8.7 I & O for Last 24 hours: Intake & Output 07/28/20 07/29/20 07/30/20 07/31/20 11:59 11:59 11:59 11:59 Intake Total 640 / 640 535 / 535 798 / 798 120 / 120 Output Total 1175 / 1175 550 / 550 950 / 950 360 / 360 Balance -535 / -535 -15 / -15 -152 / -152 -240 / -240 Weight 179 lb 9 oz 181 lb 4 oz 181 lb 7.047 oz - Constitutional no acute distress, mild distress - *Routine Respiratory Exam Present: crackles, diminished air movement - *Routine Cardiovascular Exam Present: RRR, tachycardia - *Routine Extremities Exam Absent: cyanosis, clubbing, edema - *Routine Neurological Exam Present: alert, oriented X3 Progress Note: A&P (1) New onset atrial fibrillation Status: Acute (2) CHF exacerbation Status: Acute (3) Anxiety Status: Acute (4) Anemia Status: Acute (5) Obesity (BMI 30-39.9) Status: Acute (6) Cardiomyopathy Status: Acute (7) HTN (hypertension) Status: Chronic (8) SOB (shortness of breath) Status: Acute (9) CAD (coronary artery disease) Status: Chronic (10) Renal insufficiency Status: Acute (11) Dysphagia Status: Acute (12) COVID-19 with pulmonary comorbidity Status: Acute Assessment and Plan for All Diagnoses:: Recommend increasing the patient's diltiazem to 120 mg twice daily. We will give a one-time dose of IV metoprolol 5 mg now. Continue carvedilol 25 mg twice daily along with Xarelto for thromboembolic prophylaxis. She has also on Plavix for history of coronary artery disease. Echocardiogram this admission showed an EF of 55%. Please call for any further assistance.
--- NOTE | 2020-07-30 20:16 | PC.NURSE ---
patient care was assisted by myself and flip dickey rn
--- NOTE | 2020-07-30 20:17 | PC.NURSE ---
late entry: notified dr somers at approx 1800 that the pt was experiencing dyspnea and sounded full of fluids. order for lasix 40mg iv once was given.
--- NOTE | 2020-07-30 21:14 | PC.NURSE ---
She is alert and oriented. Upon shift change she was noted to be on 6LPM n/c. She reports SOA at rest. She has a productive cough with thick, yellow sputum. Denies pain. She is voiding per f/c. Urine is yellow with sediment. Afib on telemetry. She is to wear bipap at night. Awake and requesting to call her daughter at this time. SRNA is attempting to help her use the phone. She reports that her last BM was today.
--- NOTE | 2020-07-30 21:47 | PC.NURSE ---
She is talking with her daughterAissatou on the phone at this time.
--- NOTE | 2020-07-30 23:24 | PC.NURSE ---
She is on bipap @ 40%FiO2.
[2020-07-31] VITALS (21 sets, daily range): BP systolic 148–168; BP diastolic 84–94; PULSE 95–140; RESP 14–24; TEMP 35.8–36.8; O2SAT 88–98; BMI 34.2
--- NOTE | 2020-07-31 04:08 | PC.NURSE ---
She has been weaned to 4LPM n/c.
[2020-07-31 05:35] LABS: Basophils % 0.2 % (0.1-2.0); Chloride 105 mmol/L (98-107); Eosinophils # 0.1 K/mm3 (0.0-0.4); Eosinophils % 0.4 % (0.1-12.0); Hematocrit 33.5 % (37.0-47.0); Hemoglobin 9.6 g/dL (12.2-16.2); Lymphocytes # 1.4 K/mm3 (0.7-4.5); Lymphocytes % 7.2 % (10-50); Mean Corpuscular HGB Conc 28.8 g/dL (31.8-35.4); Mean Corpuscular Hemoglobin 26.6 pg (27.0-31.2); Mean Corpuscular Volume 92.4 fl (81-99); Monocytes # 1.4 K/mm3 (0.1-1.0); Monocytes % 7.1 % (1.7-9.3); Neutrophils # 16.3 K/mm3 (1.8-7.8); Neutrophils % 85.1 % (37.0-80.0); Platelet Count 332 K/mm3 (142-424); Red Blood Count 3.63 M/mm3 (4.20-5.40); Red Cell Distribution Width 16.3 % (11.5-17.5); Sodium 134 mmol/L (136-145); White Blood Count 19.1 K/mm3 (4.8-10.8)
[2020-07-31 05:37] LABS: MANUAL DIFFERENTIAL MANUAL DIFFERENTIAL (MANUAL DIFF)
--- NOTE | 2020-07-31 05:37 | PC.NURSE ---
Her O2 had to be increased to previous 6LPM n/c when she awakened.
[2020-07-31 05:38] LABS: Blood Urea Nitrogen 67 mg/dl (7-17); Calcium 8.6 mg/dl (8.4-10.2); Carbon Dioxide 22 mmol/L (22.0-30.0); Creatinine Clearance Estimated 38 mL/min (50-200); Estimated Glomerular Filt Rate 36 ml/min (>60); GFR (African American) 43 ML/MIN (>60); Glucose 166 mg/dl (74-100)
[2020-07-31 06:23] LABS: Lymphocytes % 8 % (10-50); Monocytes % 3 % (2-9); Neutrophils % 89 % (42-76); Platelet Estimate Normal; RBC Morphology Normal; Total Cells Counted 100
--- NOTE | 2020-07-31 08:57 | HMH.ACPN2 ---
Internal Medicine - PN: Subj *Date: 08/01/20 *Time: 06:42 Interval history: doing ok - but still in a fib Exam Vital signs and Labs for Last 24 Hours: Temp Pulse Resp BP Pulse Ox 98.0 F 109 H 20 153/88 H 88 L 07/31/20 00:00 07/31/20 07:45 07/31/20 07:45 07/31/20 07:45 07/31/20 07:45 Laboratory Results - last 24 hr 07/30/20 05:30: Total Counted 100, Neutrophils % (Manual) 85 H, Lymphocytes % (Manual) 8 L, Monocytes % (Manual) 7, Platelet Estimate Normal, RBC Morphology Normal 07/31/20 05:20: WBC 19.1 H, RBC 3.63 L, Hgb 9.6 L, Hct 33.5 L, MCV 92.4, MCH 26.6 L, MCHC 28.8 L, RDW 16.3, Plt Count 332, MPV 10.0, Neut % (Auto) 85.1 H, Lymph % (Auto) 7.2 L, [place] % (Auto) 7.1, Eos % (Auto) 0.4, Baso % (Auto) 0.2, Neut # (Auto) 16.3 H, Lymph # (Auto) 1.4, [place] # (Auto) 1.4 H, Eos # (Auto) 0.1, Baso # (Auto) 0.0, Total Counted 100, Neutrophils % (Manual) 89 H, Lymphocytes % (Manual) 8 L, Monocytes % (Manual) 3, Platelet Estimate Normal, RBC Morphology Normal 07/31/20 05:20: Sodium 134 L, Potassium 5.0, Chloride 105, Carbon Dioxide 22, Anion Gap 12.0, BUN 67 H, Creatinine 1.40 H, Estimated Creat Clear 38, Estimated GFR 36 L, Est GFR ( Amer) 43 L, Glucose 166 H, Calcium 8.6 I & O for Last 24 hours: Intake & Output 07/28/20 07/29/20 07/30/20 07/31/20 11:59 11:59 11:59 11:59 Intake Total 640 / 640 535 / 535 798 / 798 740 / 740 Output Total 1175 / 1175 550 / 550 950 / 950 1610 / 1610 Balance -535 / -535 -15 / -15 -152 / -152 -870 / -870 Weight 179 lb 9 oz 181 lb 4 oz 181 lb 7.047 oz 181 lb 7.047 oz - Constitutional no acute distress, obese - *Routine HEENT Exam Head: Present: normocephalic Eye: Present: EOMI, PERRL ENT: Present: mucous membranes dry - *Routine Neck Exam Present: supple. Absent: JVD - *Routine Respiratory Exam Present: decreased breath sounds - *Routine Cardiovascular Exam Present: murmur, irregularly irregular - *Routine Abdominal Exam Present: soft - *Routine Extremities Exam Absent: calf tenderness - *Routine Skin Exam Present: intact - *Routine Neurological Exam Present: alert, CN II-XII intact - Routine Psychiatric Exam Present: cooperative Assessment and Plan (1) New onset atrial fibrillation Status: Acute Category: Medical Code(s): I48.91 - Unspecified atrial fibrillation (2) CHF exacerbation Status: Acute Qualifiers: Heart failure type: unspecified Qualified Code(s): I50.9 - Heart failure, unspecified Category: Medical Code(s): I50.9 - Heart failure, unspecified (3) Anxiety Status: Acute Category: Medical Code(s): F41.9 - Anxiety disorder, unspecified (4) Anemia Status: Acute Qualifiers: Anemia type: unspecified type Qualified Code(s): D64.9 - Anemia, unspecified Category: Medical Code(s): D64.9 - Anemia, unspecified (5) Obesity (BMI 30-39.9) Status: Acute Category: Medical Code(s): E66.9 - Obesity, unspecified (6) Cardiomyopathy Status: Acute Category: Medical Code(s): I42.9 - Cardiomyopathy, unspecified (7) HTN (hypertension) Status: Chronic Qualifiers: Hypertension type: essential hypertension Qualified Code(s): I10 - Essential (primary) hypertension Category: Medical Code(s): I10 - Essential (primary) hypertension (8) SOB (shortness of breath) Status: Acute Category: Medical Code(s): R06.02 - Shortness of breath (9) CAD (coronary artery disease) Status: Chronic Qualifiers: Coronary Disease-Associated Artery/Lesion type: [place] artery [place] vs. transplanted heart: [place] heart Associated angina: without angina Qualified Code(s): I25.10 - Atherosclerotic heart disease of [place] coronary artery without angina pectoris Category: Medical Code(s): I25.10 - Atherosclerotic heart disease of [place] coronary artery without angina pectoris (10) Renal insufficiency Status: Acute Category: Medical Code(s): N28.9 - Disorder of kidney and ureter,
--- NOTE | 2020-07-31 12:45 | PC.NURSE ---
Pt is alert and oriented and able to make needs known. RR even and unlabored. Pt has had a cough that sounds wet, but no expectorant this shift thus far. Meds given per mar. Pt did have a med bm this shift and it was soft and brown, major is in place and draining yellow urine. Continues to be uncontroled afib on tele. Did make Dr. hernandez aware this am on rounds that pt's bp has stil been elevated. Pt is currently eating lunch and is on 5 NC and sats are 87%. NS @50. Will cont to mx this shift.
--- NOTE | 2020-07-31 15:53 | PC.NURSE ---
Requested dose of IV lasix from Dr. Terrazas as pts lungs sound wet and congested, he ordered 40 mg IV x 1 This RN had to put pt on a venti mas at 50%, 15 L to maintain sats, sats wouldnt go above 86% with the nasal cannula. Pt seems to be responding to lasix already having approx 300 cc u/o. Mx continues. Did ensure Dr. terrazas wanted to continue ns @ 50 for maintence, and he did. Pt has also continued to be in uncontrolled afib.
--- NOTE | 2020-07-31 16:54 | PC.NURSE ---
Did make Dr. Terrazas aware that pts HR continues to be in the 120-130's, and pt will receive more coreg and cardizem tonight. NNO at this time. Mx continues.
--- NOTE | 2020-07-31 17:53 | PC.NURSE ---
Pt did speak with daughter Zina on phone this shift. This RN did also place a sacral dsg to pt's coccyx, as it is red. Pt has had x 3 soft to loose bm's this shift. Have turned and repositioned q 2.
[2020-08-01] VITALS (10 sets, daily range): BP systolic 125–161; BP diastolic 64–102; PULSE 60–121; RESP 16–21; TEMP 36.4–36.8; O2SAT 84–96; BMI 34.7
--- NOTE | 2020-08-01 04:18 | PC.NURSE ---
A&O4. PT HAS RESTED VERY WELL THIS SHIFT. PT IS X2 ASSIST IN BED AT THIS TIME. THIS NURSE HAS WEANED PT OFF VENTURI MASK T/O NIGHT. PT IS NOW ON 4LNC AND O2 SAT 94%. PT HAS TOLERATED WELL. PT HAS HAD NO C/O SOA OR TIGHTNESS IN CHEST. PT HAS HAD NO COUGH. F/C PRESENT DRAINING BRIGHT YELLOW URINE. TURNED PT T/O SHIFT. PT HAS NOT HAD A BM THIS SHIFT. NO C/O THUS FAR. VSS WILL CONTINUE TO MONITOR.
[2020-08-01 06:16] LABS: Basophils % 0.1 % (0.1-2.0); Eosinophils % 0.2 % (0.1-12.0); Hematocrit 29.8 % (37.0-47.0); Hemoglobin 9.4 g/dL (12.2-16.2); Lymphocytes # 0.9 K/mm3 (0.7-4.5); Lymphocytes % 6.3 % (10-50); Mean Corpuscular HGB Conc 31.7 g/dL (31.8-35.4); Mean Corpuscular Hemoglobin 28.6 pg (27.0-31.2); Mean Corpuscular Volume 90.3 fl (81-99); Mean Platelet Volume 9.6 fl (7.4-10.4); Monocytes # 0.7 K/mm3 (0.1-1.0); Neutrophils # 12.9 K/mm3 (1.8-7.8); Neutrophils % 88.4 % (37.0-80.0); Platelet Count 252 K/mm3 (142-424); Red Cell Distribution Width 16.6 % (11.5-17.5); White Blood Count 14.6 K/mm3 (4.8-10.8)
--- NOTE | 2020-08-01 06:16 | PC.NURSE ---
PT 91% ON 3.5LNC AT THIS TIME
[2020-08-01 06:17] LABS: MANUAL DIFFERENTIAL MANUAL DIFFERENTIAL (MANUAL DIFF)
[2020-08-01 06:21] LABS: Anion Gap 9.6 mEq/L (5-15); Blood Urea Nitrogen 62 mg/dl (7-17); Carbon Dioxide 23 mmol/L (22.0-30.0); Chloride 109 mmol/L (98-107); Creatinine Clearance Estimated 39 mL/min (50-200); Estimated Glomerular Filt Rate 36 ml/min (>60); GFR (African American) 43 ML/MIN (>60); Glucose 176 mg/dl (74-100); Potassium 4.6 mmoL/L (3.5-5.1); Sodium 137 mmol/L (136-145)
[2020-08-01 07:51] LABS: Hypochromasia 1+; Lymphocytes % 4 % (10-50); Monocytes % 3 % (2-9); Neutrophils % 93 % (42-76); Platelet Estimate Normal; Total Cells Counted 100
--- NOTE | 2020-08-01 09:13 | HMH.ACPN2 ---
Internal Medicine - PN: Subj *Date: 08/02/20 *Time: 06:29 Interval history: pt doing better - still in a fib Exam Vital signs and Labs for Last 24 Hours: Temp Pulse Resp BP Pulse Ox 98.0 F 119 H 16 143/84 H 89 L 08/01/20 08:00 08/01/20 08:00 08/01/20 08:00 08/01/20 08:00 08/01/20 08:00 Laboratory Results - last 24 hr 08/01/20 05:45: WBC 14.6 H, RBC 3.30 L, Hgb 9.4 L, Hct 29.8 L, MCV 90.3, MCH 28.6, MCHC 31.7 L, RDW 16.6, Plt Count 252, MPV 9.6, Neut % (Auto) 88.4 H, Lymph % (Auto) 6.3 L, [place] % (Auto) 5.0, Eos % (Auto) 0.2, Baso % (Auto) 0.1, Neut # (Auto) 12.9 H, Lymph # (Auto) 0.9, [place] # (Auto) 0.7, Eos # (Auto) 0.0, Baso # (Auto) 0.0, Total Counted 100, Neutrophils % (Manual) 93 H, Lymphocytes % (Manual) 4 L, Monocytes % (Manual) 3, Platelet Estimate Normal, Hypochromasia 1+ 08/01/20 05:45: Sodium 137, Potassium 4.6, Chloride 109 H, Carbon Dioxide 23, Anion Gap 9.6, BUN 62 H, Creatinine 1.40 H, Estimated Creat Clear 39, Estimated GFR 36 L, Est GFR ( Amer) 43 L, Glucose 176 H, Calcium 8.0 L I & O for Last 24 hours: Intake & Output 07/29/20 07/30/20 07/31/20 08/01/20 11:59 11:59 11:59 11:59 Intake Total 535 / 535 798 / 798 1080 / 1080 1570 / 1570 Output Total 550 / 550 950 / 950 1610 / 1610 1850 / 1850 Balance -15 / -15 -152 / -152 -530 / -530 -280 / -280 Weight 181 lb 4 oz 181 lb 7.047 oz 181 lb 7.047 oz 184 lb 3 oz - Constitutional no acute distress - *Routine HEENT Exam Head: Present: normocephalic Eye: Present: EOMI, PERRL ENT: Present: mucous membranes dry - *Routine Neck Exam Present: supple - *Routine Respiratory Exam Present: CTA bilaterally - *Routine Cardiovascular Exam Present: irregularly irregular - *Routine Abdominal Exam Present: soft - *Routine Extremities Exam Absent: calf tenderness - *Routine Skin Exam Present: intact - *Routine Neurological Exam Present: alert, CN II-XII intact - Routine Psychiatric Exam Present: cooperative Assessment and Plan (1) New onset atrial fibrillation Status: Acute Category: Medical Code(s): I48.91 - Unspecified atrial fibrillation (2) CHF exacerbation Status: Acute Qualifiers: Heart failure type: unspecified Qualified Code(s): I50.9 - Heart failure, unspecified Category: Medical Code(s): I50.9 - Heart failure, unspecified (3) Anxiety Status: Acute Category: Medical Code(s): F41.9 - Anxiety disorder, unspecified (4) Anemia Status: Acute Qualifiers: Anemia type: unspecified type Qualified Code(s): D64.9 - Anemia, unspecified Category: Medical Code(s): D64.9 - Anemia, unspecified (5) Obesity (BMI 30-39.9) Status: Acute Category: Medical Code(s): E66.9 - Obesity, unspecified (6) Cardiomyopathy Status: Acute Category: Medical Code(s): I42.9 - Cardiomyopathy, unspecified (7) HTN (hypertension) Status: Chronic Qualifiers: Hypertension type: essential hypertension Qualified Code(s): I10 - Essential (primary) hypertension Category: Medical Code(s): I10 - Essential (primary) hypertension (8) SOB (shortness of breath) Status: Acute Category: Medical Code(s): R06.02 - Shortness of breath (9) CAD (coronary artery disease) Status: Chronic Qualifiers: Coronary Disease-Associated Artery/Lesion type: [place] artery [place] vs. transplanted heart: [place] heart Associated angina: without angina Qualified Code(s): I25.10 - Atherosclerotic heart disease of [place] coronary artery without angina pectoris Category: Medical Code(s): I25.10 - Atherosclerotic heart disease of [place] coronary artery without angina pectoris (10) Renal insufficiency Status: Acute Category: Medical Code(s): N28.9 - Disorder of kidney and ureter, unspecified (11) Dysphagia Status: Acute Category: Medical Code(s): R13.10 - Dysphagia, unspecified (12) COVID-19 with pulmonary comorbidity Status: Acute Category: Medical Code(s):
--- NOTE | 2020-08-01 17:48 | PC.NURSE ---
AT 10:30 PATIENT O2 STARTED TO REMAIN AT 84%, THIS RN PLACED PATIENT ON 4.5L NC. PATIENT O2 WAS BETWEEN 84 TO 87% NC. THIS RN PHONED RT, RT STATED TO PLACE PATIENT ON VENTI MASK. THIS RN PLACED PATIENT ON A VENTI MASK AT 40% 12L. AT EACH MEAL THE PATIENT IS SWITCHED TO 6L NC, PATIENT STATS BETWEEN 83 TO 86%. PATIENT IS PLACED BACK ON VENTI MASK AT 40/12L. O2 REMAINS AT 92%. NO OTHER NEEDS AT THIS TIME.
--- NOTE | 2020-08-01 18:28 | PC.NURSE ---
PATIENT IS STATING THAT SHE CAN'T BREATHE. THIS RN ASSESSED PATIENT, SHE IS MOVING AIR AND O2 IS AT 93%. THIS RN ADMINISTERED XANAX FOR ANXIETY AND WILL CONTINUE TO MONITOR.
--- NOTE | 2020-08-01 18:52 | PC.NURSE ---
Staff attempted to bathe patient but patient was in distress. Was able to change gown, brief and linens.
--- NOTE | 2020-08-01 21:10 | PC.NURSE ---
PT VERY WET SOUNDING WITH AUDIBLE CRACKLES AND REPORTS HAVING TROUBLE BREATHING AT THIS TIME. O2 SAT 85-88% ON VENTI. 40MG IV LASIX X1 ADMINISTERED AND D/C OF FLUIDS PER PLANT OPERATOR CONTROL ROOM OPERATOR ANTOINE DILLARD. PT REMAINS ON 50% VENTI AT 91% O2 SAT. WILL CONTINUE TO MONITOR.
--- NOTE | 2020-08-01 22:33 | PC.NURSE ---
PT ASKED FOR ME TO COME IN ROOM. PT STATED THAT SHE DOES NOT WANT TO WEAR VENTI MASK ANYMORE. THIS NURSE TOLD PATIENT THAT THIS IS WHAT IS KEEPING HER O2 AT A THERAPEUTIC LEVEL. SHE STATED I JUST CAN'T DO IT ANYMORE. I DON'T WANT TO WEAR THE OXYGEN AT ALL. I'M TIRED OF THIS, I'M TIRED OF STRUGGLING TO BREATH. THIS NURSE TOLD PT THAT IF O2 WAS REMOVED HER STATUS WOULD RAPIDLY DECLINE. PT AGREED TO WEAR NC ONLY AT THIS TIME. 6LNC O2 SAT 87%. PT DNR SIGNED AND ON CHART. PT A&OX4. WILL CONTINUE TO MONITOR.
--- NOTE | 2020-08-01 23:21 | PC.NURSE ---
REVISITED PT ROOM. PT IS VERY EMOTIONAL. SUGGESTED PT CALL DAUGHTER FOR REASSURANCE. AFTER CALL, PT AGREES TO WEAR VENTI MASK. PT NOW AT 94%. PT REQUESTING SOMETHING TO HELP HER NERVES. ADMINISTERED PRN XANAX. RESTING IN BED. WILL CONTINUE TO MONITOR.
[2020-08-02] VITALS (11 sets, daily range): BP systolic 132–160; BP diastolic 63–83; PULSE 73–106; RESP 18–19; TEMP 35.7–36.7; O2SAT 85–96; BMI 35.0
--- NOTE | 2020-08-02 03:25 | PC.NURSE ---
A&OX4. PT CONTINUES TO TOLERATE VENTURI MASK (50%) AT THIS TIME. AFTER PREVIOUS NOTE, PT HAS SLEPT AND HAD NO C/O SOA/COUGH. PT O2 HAS BEEN MID 90S. F/C PRESENT DRAINING BRIGHT YELLOW URINE. PT DOES BEST WHEN RESTING SITTING UP HIGH IN BED. FLUIDS CONTINUE TO BE STOPPED. PT LUNGS SOUND BETTER AT THIS TIME. VSS WILL CONTINUE TO MONITOR.
--- NOTE | 2020-08-02 04:27 | PC.NURSE ---
VENTI TURNED DOWN TO 35%. PT 94% AT THIS TIME. WILL CONTINUE TO MONITOR.
--- NOTE | 2020-08-02 05:45 | PC.NURSE ---
PT 95% ON 6LNC. WILL CONTINUE TO MONITOR.
[2020-08-02 06:25] LABS: Basophils % 0.1 % (0.1-2.0); Hematocrit 31.6 % (37.0-47.0); Hemoglobin 9.7 g/dL (12.2-16.2); Lymphocytes # 0.9 K/mm3 (0.7-4.5); Lymphocytes % 5.6 % (10-50); Mean Corpuscular HGB Conc 30.9 g/dL (31.8-35.4); Mean Corpuscular Hemoglobin 28.2 pg (27.0-31.2); Mean Corpuscular Volume 91.3 fl (81-99); Mean Platelet Volume 9.9 fl (7.4-10.4); Monocytes # 0.6 K/mm3 (0.1-1.0); Monocytes % 3.9 % (1.7-9.3); Neutrophils # 14.2 K/mm3 (1.8-7.8); Neutrophils % 90.4 % (37.0-80.0); Platelet Count 268 K/mm3 (142-424); Red Blood Count 3.46 M/mm3 (4.20-5.40); Red Cell Distribution Width 16.4 % (11.5-17.5); White Blood Count 15.7 K/mm3 (4.8-10.8)
[2020-08-02 06:27] LABS: MANUAL DIFFERENTIAL MANUAL DIFFERENTIAL (MANUAL DIFF)
[2020-08-02 06:33] LABS: Blood Urea Nitrogen 62 mg/dl (7-17); Calcium 8.4 mg/dl (8.4-10.2); Carbon Dioxide 24 mmol/L (22.0-30.0); Chloride 108 mmol/L (98-107); Creatinine Clearance Estimated 42 mL/min (50-200); Estimated Glomerular Filt Rate 39 ml/min (>60); GFR (African American) 47 ML/MIN (>60); Glucose 193 mg/dl (74-100); Sodium 136 mmol/L (136-145)
--- NOTE | 2020-08-02 06:38 | PC.NURSE ---
PT ON 5LNC. 91%. WILL CONTINUE TO MONITOR.
--- NOTE | 2020-08-02 08:24 | HMH.PNCARD ---
Subjective Date: 08/02/20 Time: 08:24 Principal diagnosis: Afib, chf Interval history: 85 yo WF in bed in ICU in [facility]. States she is breathing better. Nursing relates oxygen requirement has improved, currently on NC at 4 LPM. Plans are for transfer to Rehab today. Telemetry continues to show A. fib with rate around 100 bpm. Exam Vital signs and Labs for Last 24 Hours: Temp Pulse Resp BP Pulse Ox 97.5 F L 101 H 18 160/83 H 91 L 08/02/20 03:58 08/02/20 06:25 08/02/20 03:58 08/02/20 03:58 08/02/20 06:25 Laboratory Results - last 24 hr 08/02/20 05:30: WBC 15.7 H, RBC 3.46 L, Hgb 9.7 L, Hct 31.6 L, MCV 91.3, MCH 28.2, MCHC 30.9 L, RDW 16.4, Plt Count 268, MPV 9.9, Neut % (Auto) 90.4 H, Lymph % (Auto) 5.6 L, [place] % (Auto) 3.9, Eos % (Auto) 0.0 L, Baso % (Auto) 0.1, Neut # (Auto) 14.2 H, Lymph # (Auto) 0.9, [place] # (Auto) 0.6, Eos # (Auto) 0.0, Baso # (Auto) 0.0 08/02/20 05:30: Sodium 136, Potassium 5.0, Chloride 108 H, Carbon Dioxide 24, Anion Gap 9.0, BUN 62 H, Creatinine 1.30 H, Estimated Creat Clear 42, Estimated GFR 39 L, Est GFR ( Amer) 47 L, Glucose 193 H, Calcium 8.4 I & O for Last 24 hours: Intake & Output 07/30/20 07/31/20 08/01/20 08/02/20 11:59 11:59 11:59 11:59 Intake Total 798 / 798 1080 / 1080 1570 / 1570 570 / 570 Output Total 950 / 950 1610 / 1610 1850 / 1850 1800 / 1800 Balance -152 / -152 -530 / -530 -280 / -280 -1230 / -1230 Weight 181 lb 7.047 oz 181 lb 7.047 oz 184 lb 3 oz 185 lb 7 oz - Constitutional no acute distress - *Routine Respiratory Exam Present: rhonchi. Absent: wheezes, crackles - *Routine Cardiovascular Exam Present: irregularly irregular - *Routine Extremities Exam Absent: cyanosis, clubbing, edema - *Routine Neurological Exam Present: alert, oriented X3 Progress Note: A&P (1) New onset atrial fibrillation Status: Acute (2) CHF exacerbation Status: Acute (3) Anxiety Status: Acute (4) Anemia Status: Acute (5) Obesity (BMI 30-39.9) Status: Acute (6) Cardiomyopathy Status: Acute (7) HTN (hypertension) Status: Chronic (8) SOB (shortness of breath) Status: Acute (9) CAD (coronary artery disease) Status: Chronic (10) Renal insufficiency Status: Acute (11) Dysphagia Status: Acute (12) COVID-19 with pulmonary comorbidity Status: Acute Assessment and Plan for All Diagnoses:: 1. COVID-19 with pneumonia, per Pulmonary 2. A. fib with rate around 100 bpm, on combo of coreg and diltiazem for BP/HR control. On Xarelto for a/c. 3. History of cardiomyopathy but echo this admission shows EF 55% without wall motion abnormalities. 4. CAD, prior SHEELA to unknown artery in unknown year. Clinically stable with normal troponins. Continue detention plavix. OK from cardiology standpoint for transfer to Rehab. Recommend follow up in office in 2-4 wks.
--- NOTE | 2020-08-02 08:27 | XR_ITS ---
PROCEDURE: XR CHEST PORTABLE CLINICAL HISTORY: low 02 sat COMPARISON: CT CT CHEST WO CON from 07/22/2020 CR XR CHEST PORTABLE from 07/22/2020 CR XR CHEST PORTABLE from 07/23/2020 CR XR CHEST PORTABLE from 07/26/2020 FINDINGS: Neural stimulator device lead tips are noted at the upper thoracic spine. Small to moderate bilateral pleural effusions with adjacent compressive atelectasis. These are marginally worse compared to the prior study of July 26, 2020. Mild cardiomegaly with central pulmonary vascular congestion is noted. No other lobar consolidation or pneumothorax. Vascular calcification is noted. Degenerative changes of the visualized thoracic spine and bilateral shoulder joints. IMPRESSION: Cardiomegaly, pulmonary vascular congestion and bilateral pleural effusions, raises the concern for congestive failure. Dictated by: Helena Villarreal 08/02/2020 10:31 Helena Villarreal in OV 08/02/2020 10:31
[2020-08-02 09:15] LABS: Lymphocytes % 6 % (10-50); Monocytes % 4 % (2-9); Neutrophils % 90 % (42-76); Platelet Estimate Normal; RBC Morphology Normal; Total Cells Counted 100
--- NOTE | 2020-08-02 10:14 | PC.NURSE ---
Addendum entered by Suzanne Guerrier RN 08/02/20 10:47: Pt weaned to 3L NC at this time. o2 sat is currently 92%. Original Note: Pt asleep at this time, o2 weaned to 4L. IV lasix administered per MD Lopez . Pt currently @ 93% on 4L. Will continue to wean o2 when appropriate.
--- NOTE | 2020-08-02 10:46 | HMH.PULMPN ---
Internal Medicine - PN: Subj *Date: 08/02/20 *Time: 10:46 Interval history: Patient oxygen requirements worsen over the weekend Exam - Constitutional Constitutional:: Present: no acute distress, comfortable - HENMT Exam HENMT: Present: normocephalic, atraumatic - Neck Exam Neck:: Present: normal visual inspection - Respiratory Exam Respiratory:: Present: able to speak in complete sentences, respiratory distress, decreased breath sounds, crackles - Cardiovascular Exam Cardiac:: Present: S1, S2 - GI Exam GI:: Present: soft - Skin Exam Skin: Present: warm, no rash - Neurological Exam Neurological: Present: alert, awake, normal cognition - Extremities Exam Extremities: Present: no cyanosis, no clubbing, edema - Psychiatric Exam Psychiatric: Present: normal affect Assessment and Plan (1) New onset atrial fibrillation Status: Acute Category: Medical Code(s): I48.91 - Unspecified atrial fibrillation (2) CHF exacerbation Status: Acute Qualifiers: Heart failure type: unspecified Qualified Code(s): I50.9 - Heart failure, unspecified Category: Medical Code(s): I50.9 - Heart failure, unspecified (3) Anxiety Status: Acute Category: Medical Code(s): F41.9 - Anxiety disorder, unspecified (4) Anemia Status: Acute Qualifiers: Anemia type: unspecified type Qualified Code(s): D64.9 - Anemia, unspecified Category: Medical Code(s): D64.9 - Anemia, unspecified (5) Obesity (BMI 30-39.9) Status: Acute Category: Medical Code(s): E66.9 - Obesity, unspecified (6) Cardiomyopathy Status: Acute Category: Medical Code(s): I42.9 - Cardiomyopathy, unspecified (7) HTN (hypertension) Status: Chronic Qualifiers: Hypertension type: essential hypertension Qualified Code(s): I10 - Essential (primary) hypertension Category: Medical Code(s): I10 - Essential (primary) hypertension (8) SOB (shortness of breath) Status: Acute Category: Medical Code(s): R06.02 - Shortness of breath (9) CAD (coronary artery disease) Status: Chronic Qualifiers: Coronary Disease-Associated Artery/Lesion type: [place] artery [place] vs. transplanted heart: [place] heart Associated angina: without angina Qualified Code(s): I25.10 - Atherosclerotic heart disease of [place] coronary artery without angina pectoris Category: Medical Code(s): I25.10 - Atherosclerotic heart disease of [place] coronary artery without angina pectoris (10) Renal insufficiency Status: Acute Category: Medical Code(s): N28.9 - Disorder of kidney and ureter, unspecified (11) Dysphagia Status: Acute Category: Medical Code(s): R13.10 - Dysphagia, unspecified (12) COVID-19 with pulmonary comorbidity Status: Acute Category: Medical Code(s): U07.1 - COVID-19; J98.4 - Other disorders of lung - Assessment and plan all Dx Assessment and Plan for all problems:: #Acute on chronic hypoxic respiratory failure: # Shortness of breath: #Hospital-acquired pneumonia: #COVID-19 pneumonia: 85-year-old female no significant smoking history, no personal history or family history of asthma or allergies, carries a diagnosis of congestive heart failure presented worsening CHF exacerbation and new onset atrial fibrillation. Patient also usilg 2 liters long-term oxygen therapy at home. Patient also using Spiriva along with albuterol as needed as per chart review however patient is not clear name of the inhaler but she is using an inhaler twice a day. Patient respiratory status gradually declined in the last 48 hours with oxygen requirements escalated from nasal cannula to high flow nasal cannula and eventually to BiPAP. Chest x-ray showed bilateral worsening infiltrates/worsening pleural effusions with atelectasis. Repeat BNP is still elevated at 12,000. Patient has been receiving Xarelto since admission for her atrial fibrillation that was changed to heparin. Patient also diagnosed with C
--- NOTE | 2020-08-02 11:14 | HMH.ACPN ---
Internal Medicine - PN: Subj *Date: 08/02/20 *Time: 11:14 Exam Vital signs and Labs for Last 24 Hours: Temp Pulse Resp BP Pulse Ox 96.3 F L 106 H 18 138/71 91 L 08/02/20 08:00 08/02/20 08:00 08/02/20 08:00 08/02/20 08:00 08/02/20 08:00 Laboratory Results - last 24 hr 08/02/20 05:30: WBC 15.7 H, RBC 3.46 L, Hgb 9.7 L, Hct 31.6 L, MCV 91.3, MCH 28.2, MCHC 30.9 L, RDW 16.4, Plt Count 268, MPV 9.9, Neut % (Auto) 90.4 H, Lymph % (Auto) 5.6 L, [place] % (Auto) 3.9, Eos % (Auto) 0.0 L, Baso % (Auto) 0.1, Neut # (Auto) 14.2 H, Lymph # (Auto) 0.9, [place] # (Auto) 0.6, Eos # (Auto) 0.0, Baso # (Auto) 0.0, Total Counted 100, Neutrophils % (Manual) 90 H, Lymphocytes % (Manual) 6 L, Monocytes % (Manual) 4, Platelet Estimate Normal, RBC Morphology Normal 08/02/20 05:30: Sodium 136, Potassium 5.0, Chloride 108 H, Carbon Dioxide 24, Anion Gap 9.0, BUN 62 H, Creatinine 1.30 H, Estimated Creat Clear 42, Estimated GFR 39 L, Est GFR ( Amer) 47 L, Glucose 193 H, Calcium 8.4 I & O for Last 24 hours: Intake & Output 07/30/20 07/31/20 08/01/20 08/02/20 23:59 23:59 23:59 23:59 Intake Total 860 / 860 1470 / 1470 860 / 860 510 / 510 Output Total 360 / 360 2400 / 2400 1250 / 2050 1250 / 1250 Balance 500 / 500 -930 / -930 -390 / -1190 -740 / -740 Weight 82.3 kg 82.3 kg 83.546 kg 84.113 kg Assessment and Plan (1) New onset atrial fibrillation Status: Acute Category: Medical Code(s): I48.91 - Unspecified atrial fibrillation (2) CHF exacerbation Status: Acute Qualifiers: Heart failure type: unspecified Qualified Code(s): I50.9 - Heart failure, unspecified Category: Medical Code(s): I50.9 - Heart failure, unspecified (3) Anxiety Status: Acute Category: Medical Code(s): F41.9 - Anxiety disorder, unspecified (4) Anemia Status: Acute Qualifiers: Anemia type: unspecified type Qualified Code(s): D64.9 - Anemia, unspecified Category: Medical Code(s): D64.9 - Anemia, unspecified (5) Obesity (BMI 30-39.9) Status: Acute Category: Medical Code(s): E66.9 - Obesity, unspecified (6) Cardiomyopathy Status: Acute Category: Medical Code(s): I42.9 - Cardiomyopathy, unspecified (7) HTN (hypertension) Status: Chronic Qualifiers: Hypertension type: essential hypertension Qualified Code(s): I10 - Essential (primary) hypertension Category: Medical Code(s): I10 - Essential (primary) hypertension (8) SOB (shortness of breath) Status: Acute Category: Medical Code(s): R06.02 - Shortness of breath (9) CAD (coronary artery disease) Status: Chronic Qualifiers: Coronary Disease-Associated Artery/Lesion type: [place] artery [place] vs. transplanted heart: [place] heart Associated angina: without angina Qualified Code(s): I25.10 - Atherosclerotic heart disease of [place] coronary artery without angina pectoris Category: Medical Code(s): I25.10 - Atherosclerotic heart disease of [place] coronary artery without angina pectoris (10) Renal insufficiency Status: Acute Category: Medical Code(s): N28.9 - Disorder of kidney and ureter, unspecified (11) Dysphagia Status: Acute Category: Medical Code(s): R13.10 - Dysphagia, unspecified (12) COVID-19 with pulmonary comorbidity Status: Acute Category: Medical Code(s): U07.1 - COVID-19; J98.4 - Other disorders of lung The patient's infection will respond to the chosen ABx?: Yes Is the patient receiving the right drug, dose, and route?: Yes Could a more targeted ABx be ordered?: No (CONTINUE CEFEPIME AND CLINDA PER COMMUNICATIONS ELECTRICIAN SUPERVISOR) 14 (DAY 4)
[2020-08-02 11:30] LABS: POC Glucose,Bedside 238 (70-110)
--- NOTE | 2020-08-02 13:49 | HMH.ACPN2 ---
Internal Medicine - PN: Subj *Date: 08/02/20 *Time: 08:30 Interval history: pt sitting up in bed eatting breakfast, pt states she feels good just weak Exam Vital signs and Labs for Last 24 Hours: Temp Pulse Resp BP Pulse Ox 97.5 F L 87 19 142/63 H 89 L 08/02/20 12:00 08/02/20 12:55 08/02/20 12:00 08/02/20 12:00 08/02/20 12:00 Laboratory Results - last 24 hr 08/02/20 05:30: WBC 15.7 H, RBC 3.46 L, Hgb 9.7 L, Hct 31.6 L, MCV 91.3, MCH 28.2, MCHC 30.9 L, RDW 16.4, Plt Count 268, MPV 9.9, Neut % (Auto) 90.4 H, Lymph % (Auto) 5.6 L, [place] % (Auto) 3.9, Eos % (Auto) 0.0 L, Baso % (Auto) 0.1, Neut # (Auto) 14.2 H, Lymph # (Auto) 0.9, [place] # (Auto) 0.6, Eos # (Auto) 0.0, Baso # (Auto) 0.0, Total Counted 100, Neutrophils % (Manual) 90 H, Lymphocytes % (Manual) 6 L, Monocytes % (Manual) 4, Platelet Estimate Normal, RBC Morphology Normal 08/02/20 05:30: Sodium 136, Potassium 5.0, Chloride 108 H, Carbon Dioxide 24, Anion Gap 9.0, BUN 62 H, Creatinine 1.30 H, Estimated Creat Clear 42, Estimated GFR 39 L, Est GFR ( Amer) 47 L, Glucose 193 H, Calcium 8.4 08/02/20 11:04: POC Glucose 238 H I & O for Last 24 hours: Intake & Output 07/31/20 08/01/20 08/02/20 08/03/20 11:59 11:59 11:59 11:59 Intake Total 1080 / 1080 1570 / 1570 930 / 930 200 / 200 Output Total 1610 / 1610 1850 / 1850 1800 / 1800 Balance -530 / -530 -280 / -280 -870 / -870 200 / 200 Weight 181 lb 7.047 oz 184 lb 3 oz 185 lb 7 oz - Constitutional no acute distress, obese - *Routine HEENT Exam Head: Present: normocephalic Eye: Present: PERRL ENT: Present: mucous membranes moist - *Routine Neck Exam Present: supple. Absent: lymphadenopathy - *Routine Respiratory Exam Present: crackles - *Routine Cardiovascular Exam Present: irregularly irregular - *Routine Abdominal Exam Present: soft, normoactive bowel sounds. Absent: tenderness - *Routine Extremities Exam Present: normal capillary refill. Absent: cyanosis, clubbing, edema - *Routine Skin Exam Present: warm. Absent: rash - *Routine Neurological Exam Present: alert, oriented X3 - Routine Psychiatric Exam Present: normal affect Assessment and Plan (1) New onset atrial fibrillation Status: Acute Category: Medical Code(s): I48.91 - Unspecified atrial fibrillation (2) CHF exacerbation Status: Acute Qualifiers: Heart failure type: unspecified Qualified Code(s): I50.9 - Heart failure, unspecified Category: Medical Code(s): I50.9 - Heart failure, unspecified (3) Anxiety Status: Acute Category: Medical Code(s): F41.9 - Anxiety disorder, unspecified (4) Anemia Status: Acute Qualifiers: Anemia type: unspecified type Qualified Code(s): D64.9 - Anemia, unspecified Category: Medical Code(s): D64.9 - Anemia, unspecified (5) Obesity (BMI 30-39.9) Status: Acute Category: Medical Code(s): E66.9 - Obesity, unspecified (6) Cardiomyopathy Status: Acute Category: Medical Code(s): I42.9 - Cardiomyopathy, unspecified (7) HTN (hypertension) Status: Chronic Qualifiers: Hypertension type: essential hypertension Qualified Code(s): I10 - Essential (primary) hypertension Category: Medical Code(s): I10 - Essential (primary) hypertension (8) SOB (shortness of breath) Status: Acute Category: Medical Code(s): R06.02 - Shortness of breath (9) CAD (coronary artery disease) Status: Chronic Qualifiers: Coronary Disease-Associated Artery/Lesion type: [place] artery [place] vs. transplanted heart: [place] heart Associated angina: without angina Qualified Code(s): I25.10 - Atherosclerotic heart disease of [place] coronary artery without angina pectoris Category: Medical Code(s): I25.10 - Atherosclerotic heart disease of [place] coronary artery without angina pectoris (10) Renal insufficiency Status: Acute Category: Medical Code(s): N28.9 - Disorder of kidney and ureter, unspecified (11)
--- NOTE | 2020-08-02 14:40 | PC.NURSE ---
Per Tamra Moore APRN- d/c major cath around [id number] this evening d/t receiving 80 mg of Lasix
--- NOTE | 2020-08-02 16:54 | PC.NURSE ---
Pt has been pleasant this shift. Scattered coarse crackles continue to be heard t/o all lung vyas. Pt has been titrating between 3-4L NC this shift. Pt is currently 91% on 3L NC. Pt output per moriah this avedb=127 mL thus far. Pt got up to the chair for approx 2 hours this afternoon. Pt required max assist w/ transfer. Daughter has been updated this shift regarding POC. No other acute changes or complaints at this time. Will continue to monitor.
--- NOTE | 2020-08-02 18:41 | PC.NURSE ---
1630- Pt o2 was increased to 4LNC d/t desatting to 81-83% 1840- Pt o2 increased to 5 NC. Pt was maintaining 83-86% while asleep.
[2020-08-03] VITALS (11 sets, daily range): BP systolic 146–164; BP diastolic 72–86; PULSE 75–95; RESP 13–22; TEMP 36.3–36.8; O2SAT 88–96; BMI 34.3
--- NOTE | 2020-08-03 04:25 | PC.NURSE ---
6965-2499 O2 sats maintained 96-97% at 5L NC with HOB at 45 degrees. 6248-3348 O2 sats maintained 94-96% at 4L NC with HOB at 45 degrees. 3023-6781 O2 sats maintained 92-94% at 2.5L NC with HOB at 45 degrees. Patient has showed no s/s of acute distress at this time. Will continue to monitor. Bed at lowest level for safety, call light within reach.
[2020-08-03 06:12] LABS: Basophils % 0.1 % (0.1-2.0); Eosinophils % 0.1 % (0.1-12.0); Hematocrit 31.3 % (37.0-47.0); Hemoglobin 9.6 g/dL (12.2-16.2); Lymphocytes # 0.9 K/mm3 (0.7-4.5); Lymphocytes % 5.2 % (10-50); Mean Corpuscular HGB Conc 30.7 g/dL (31.8-35.4); Mean Corpuscular Hemoglobin 28.2 pg (27.0-31.2); Mean Corpuscular Volume 91.6 fl (81-99); Mean Platelet Volume 9.2 fl (7.4-10.4); Monocytes # 0.9 K/mm3 (0.1-1.0); Monocytes % 5.2 % (1.7-9.3); Neutrophils # 15.4 K/mm3 (1.8-7.8); Neutrophils % 89.3 % (37.0-80.0); Platelet Count 251 K/mm3 (142-424); Red Blood Count 3.41 M/mm3 (4.20-5.40); Red Cell Distribution Width 16.5 % (11.5-17.5); White Blood Count 17.2 K/mm3 (4.8-10.8)
[2020-08-03 06:17] LABS: MANUAL DIFFERENTIAL MANUAL DIFFERENTIAL (MANUAL DIFF)
[2020-08-03 06:18] LABS: Anion Gap 8.9 mEq/L (5-15); Blood Urea Nitrogen 66 mg/dl (7-17); Calcium 8.3 mg/dl (8.4-10.2); Carbon Dioxide 24 mmol/L (22.0-30.0); Chloride 108 mmol/L (98-107); Creatinine Clearance Estimated 42 mL/min (50-200); Estimated Glomerular Filt Rate 39 ml/min (>60); GFR (African American) 47 ML/MIN (>60); Glucose 161 mg/dl (74-100); Potassium 4.9 mmoL/L (3.5-5.1); Sodium 136 mmol/L (136-145)
[2020-08-03 07:38] LABS: Lymphocytes % 6 % (10-50); Monocytes % 5 % (2-9); Neutrophils % 89 % (42-76); Total Cells Counted 100
[2020-08-03 07:39] LABS: Hypochromasia 1+; Platelet Estimate Normal
--- NOTE | 2020-08-03 10:17 | SW/DCPLANNER ---
SPOKE WITH BHARAT GOTTI AND TOLD HER PATIENT WOULD BE DISCHARGING THERE TODAY, I HAVE ALSO LEFT A VOICE MESSAGE WITH DAUGHTER .. DR OSORIO AND THEODORE SAW PATIENT AND HAS MEDICALLY CLEARED HER FOR DISCHARGE... PATIENT DOES NOT REQUIRE ANOTHER COVID SWAB...NURSE WAS NOTIFIED...
--- NOTE | 2020-08-03 11:16 | HMH.DCSUM ---
General - General Admission date:: 07/17/20 Discharge date: 08/03/20 HPI HPI: this patient presented to the ed with increased sob - she does have hx of copd from distant tob use and uses 2l o2 at home - she has seen card in past - in the ed was noted to be in a fib and have chf and was admitted -5yo F presents secondary shortness of breath. Daughters at bedside. Patient lives with daughter. Reports patient wears 2 L nasal cannula at all time. With her home O2, the daughter reports the patient's home O2 has not been above 91%. Patient and daughter at bedside reported she has been more short of breath. Progressively worsening over the past week. No change in cough. No change in sputum production. No fever. No chest pain. Patient takes Lasix at home which has improved her lower extremity edema. Appetite is normal. No nausea/vomit/diarrhea. pt was admitted for treatment and eval Hospital Course Hospital Course: Laboratory Tests 07/17/20 07/17/20 07/17/20 11:30 16:58 16:58 WBC 12.0 H RBC 3.59 L Hgb 10.1 L Hct 33.1 L MCV 92.4 MCH 28.3 MCHC 30.6 L RDW 15.6 Plt Count 274 MPV 8.4 Neut % (Auto) 77.8 Lymph % (Auto) 14.3 [place] % (Auto) 6.4 Eos % (Auto) 0.8 Baso % (Auto) 0.5 Neut # (Auto) 9.3 H Lymph # (Auto) 1.7 [place] # (Auto) 0.8 Eos # (Auto) 0.1 Baso # (Auto) 0.1 Total Counted Neutrophils % (Manual) Lymphocytes % (Manual) Monocytes % (Manual) Platelet Estimate RBC Morphology Hypochromasia APTT D-Dimer Specimen Source O2 % ABG pH ABG pCO2 ABG pO2 ABG HCO3 ABG Total CO2 ABG O2 Saturation ABG Base Excess Thanh Test ABG Lactate Tidal Volume Sodium 131 L Potassium 4.9 Chloride 99 Carbon Dioxide 24 Anion Gap 12.9 BUN 20 H Creatinine 1.10 H Estimated Creat Clear 44 Estimated GFR 47 L Est GFR ( Amer) 57 L Glucose 113 H POC Glucose Calcium 9.0 Magnesium Total Bilirubin AST ALT Alkaline Phosphatase Troponin I < 0.01 < 0.01 NT-Pro-B Natriuret Pep 29207 H Total Protein Albumin Globulin Albumin/Globulin Ratio Procalcitonin TSH Thyroxine (T4) Urine Color Urine Appearance Urine pH Ur Specific [place] Urine Protein Urine Glucose (UA) Urine Ketones Urine Blood Urine Nitrate Urine Bilirubin Urine Urobilinogen Ur Leukocyte Esterase Urine RBC Urine WBC Ur Squamous Epith Cells Urine Bacteria Chlamy pneumoniae PCR Adenovirus (PCR) B. pertussis DNA (PCR) Coronavirus OC43 (PCR) Coronavirus HKU1 (PCR) Coronavirus 229E (PCR) SARS-CoV-2 (PCR) Coronavirus NL63 (PCR) Human Metapneumovir PCR Influenza A (H1) PCR Influ A (H1N1/09) PCR Influenza A (H3) PCR Influenza Type A (PCR) Influenza Type B (PCR) M. pneumoniae (PCR) Parainfluenza 1 (PCR) Parainfluenza 2 (PCR) Parainfluenza 3 (PCR) Parainfluenza 4 (PCR) RSV (PCR) Entero/Rhino (PCR) 07/17/20 07/17/20 07/17/20 17:30 17:45 20:45 WBC RBC Hgb Hct MCV MCH MCHC RDW Plt Count MPV Neut % (Auto) Lymph % (Auto) [place] % (Auto) Eos % (Auto) Baso % (Auto) Neut # (Auto) Lymph # (Auto) [place] # (Auto) Eos # (Auto) Baso # (Auto) Total Counted Neutrophils % (Manual) Lymphocytes % (Manual) Monocytes % (Manual) Platelet Estimate RBC Morphology Hypochromasia APTT D-Dimer Specimen Source O2 % ABG pH ABG pCO2 ABG pO2 ABG HCO3 ABG Total CO2 ABG O2 Saturation ABG Base Excess Thanh Test ABG Lactate Tidal Volume Sodium Potassium Chloride Carbon Dioxide Anion Gap BUN Creatinine Estimated Creat Clear Estimated GFR Est GFR ( Amer) Glucose POC Glucose
--- NOTE | 2020-08-03 11:40 | HMH.PULMPN ---
Internal Medicine - PN: Subj *Date: 08/03/20 *Time: 11:40 Interval history: Patient respiratory status significantly improved from yesterday post Lasix. She is on 2 L nasal cannula saturating 88 to 90%. Exam - Constitutional Constitutional:: Present: no acute distress, comfortable - HENMT Exam HENMT: Present: normocephalic, atraumatic - Eye Exam Eyes:: Present: normal appearance both eyes and related structures - Neck Exam Neck:: Present: normal visual inspection - Respiratory Exam Respiratory:: Present: able to speak in complete sentences, normal breath sounds, no respiratory distress, crackles. Absent: wheezing - Cardiovascular Exam Cardiac:: Present: S1, S2 - GI Exam GI:: Present: soft - Skin Exam Skin: Present: warm, no rash - Neurological Exam Neurological: Present: alert, awake, normal cognition - Extremities Exam Extremities: Present: no cyanosis, no clubbing, edema Assessment and Plan (1) New onset atrial fibrillation Status: Acute Category: Medical Code(s): I48.91 - Unspecified atrial fibrillation (2) CHF exacerbation Status: Acute Qualifiers: Heart failure type: unspecified Qualified Code(s): I50.9 - Heart failure, unspecified Category: Medical Code(s): I50.9 - Heart failure, unspecified (3) Anxiety Status: Acute Category: Medical Code(s): F41.9 - Anxiety disorder, unspecified (4) Anemia Status: Acute Qualifiers: Anemia type: unspecified type Qualified Code(s): D64.9 - Anemia, unspecified Category: Medical Code(s): D64.9 - Anemia, unspecified (5) Obesity (BMI 30-39.9) Status: Acute Category: Medical Code(s): E66.9 - Obesity, unspecified (6) Cardiomyopathy Status: Acute Category: Medical Code(s): I42.9 - Cardiomyopathy, unspecified (7) HTN (hypertension) Status: Chronic Qualifiers: Hypertension type: essential hypertension Qualified Code(s): I10 - Essential (primary) hypertension Category: Medical Code(s): I10 - Essential (primary) hypertension (8) SOB (shortness of breath) Status: Acute Category: Medical Code(s): R06.02 - Shortness of breath (9) CAD (coronary artery disease) Status: Chronic Qualifiers: Coronary Disease-Associated Artery/Lesion type: [place] artery [place] vs. transplanted heart: [place] heart Associated angina: without angina Qualified Code(s): I25.10 - Atherosclerotic heart disease of [place] coronary artery without angina pectoris Category: Medical Code(s): I25.10 - Atherosclerotic heart disease of [place] coronary artery without angina pectoris (10) Renal insufficiency Status: Acute Category: Medical Code(s): N28.9 - Disorder of kidney and ureter, unspecified (11) Dysphagia Status: Acute Category: Medical Code(s): R13.10 - Dysphagia, unspecified (12) COVID-19 with pulmonary comorbidity Status: Acute Category: Medical Code(s): U07.1 - COVID-19; J98.4 - Other disorders of lung - Assessment and plan all Dx Assessment and Plan for all problems:: #Acute on chronic hypoxic respiratory failure: # Shortness of breath: #Hospital-acquired pneumonia: #COVID-19 pneumonia: 85-year-old female no significant smoking history, no personal history or family history of asthma or allergies, carries a diagnosis of congestive heart failure presented worsening CHF exacerbation and new onset atrial fibrillation. Patient also usilg 2 liters long-term oxygen therapy at home. Likely noncompliant with inhalers as she is not exactly sure what inhalers she has been using. Patient at the time of pulmonary's consult does not appear to be infectious etiology however patient respiratory status gradually declined with worsening leukocytosis and was initiated on cefepime and clindamycin. Patient chest x-ray and CT WO along with bilateral lower lobe infiltrates also noted to have worsening effusions with a BNP elevated at 12,000 at that time and patient was initiated on diures
--- NOTE | 2020-08-03 14:13 | PC.NURSE ---
report given to Lyn at [place]
== END 2020-08-03 15:18 | DRG 177 ==
LOC: ER 16:31 → 2ND 18:54 → ICU 07-28 17:14
PROVIDERS: Family Medicine; Internal Medicine Pulmonary Disease; Nurse Practitioner Family; Orthopaedic Surgery; Admitting Provider Internal Medicine Adolescent Medicine; Emergency Provider Family Medicine; PCP Emergency Medicine; Visit Provider Emergency Medicine
DX: J18.9 Pneumonia, unspecified organism (principal); U07.1 COVID-19; N18.4 Chronic kidney disease, stage 4 (severe); N17.9 Acute kidney failure, unspecified; J44.0 Chronic obstructive pulmonary disease with (acute) lower respiratory infection; J12.82 Pneumonia due to coronavirus disease 2019; J96.21 Acute and chronic respiratory failure with hypoxia; J98.11 Atelectasis; I42.9 Cardiomyopathy, unspecified; E27.40 Unspecified adrenocortical insufficiency; I48.91 Unspecified atrial fibrillation; I50.9 Heart failure, unspecified; Z99.81 Dependence on supplemental oxygen; E03.9 Hypothyroidism, unspecified; Z79.890 Hormone replacement therapy; Z88.8 Allergy status to other drugs, medicaments and biological substances; Z79.899 Other long term (current) drug therapy; Z79.01 Long term (current) use of anticoagulants; Z87.891 Personal history of nicotine dependence; M81.0 Age-related osteoporosis without current pathological fracture; Z95.5 Presence of coronary angioplasty implant and graft; F41.9 Anxiety disorder, unspecified; K21.9 Gastro-esophageal reflux disease without esophagitis; E66.9 Obesity, unspecified; Z68.34 Body mass index [BMI] 34.0-34.9, adult; E83.42 Hypomagnesemia; R13.10 Dysphagia, unspecified; I25.10 Atherosclerotic heart disease of native coronary artery without angina pectoris; D63.1 Anemia in chronic kidney disease; E87.6 Hypokalemia; Y95 Nosocomial condition; Z91.14 Patient's other noncompliance with medication regimen; Z88.1 Allergy status to other antibiotic agents; Z88.2 Allergy status to sulfonamides
CPT/HCPCS: 36415; 70450; 71045; 71046; 71250; 80048; 80053; 81001; 82803; 82962; 83605; 83735; 83880; 84145; 84436; 84443; 84484; 85007; 85025; 85378; 85730; 87040; 87070; 87081; 87086; 87205; 87581; 87633; 87798; 92526; 92610; 93005; 93306; 93308; 93970; 93971; 94640; 94660; 94760; 94761; 96374; 97110; 97162; 97166; 97530; 99284; J0692; U0003

== ENCOUNTER 2020-08-14 10:09 | Inpatient (IN) | payer MEDICARE, OTHER, SELFPAY ==
[2020-08-14] VITALS (17 sets, daily range): BP systolic 108–163; BP diastolic 44–90; PULSE 58–101; RESP 18–24; TEMP 36.5–37.8; O2SAT 90–100; BMI 32.9; BMI 27.8
--- NOTE | 2020-08-14 10:12 | ECG_ITS ---
APPROVED REPORT Exam: Resting ECG HR:72 bpm ECG Measurements Heart Rate 72 AXES QRSd 90 QRS 35 QT 392 T -54 QTc [address] & T wave abnormality, consider lateral ischemia or electrolyite disturbance Abnormal ECG Electronically signed by : Antonio Soto, 08/15/2020 07:09:57
--- NOTE | 2020-08-14 10:12 | HMH.EDGENADL ---
ED Disposition Clinical Impression: Acute respiratory failure with hypoxia CHF exacerbation Qualifiers: Heart failure type: unspecified Qualified Code(s): I50.9 - Heart failure, unspecified Disposition: Admitted As Inpatient Condition on Discharge: Fair Time of Disposition: 12:04 - Critical Care Critical Care Time: No Attestation: On , the high probability of a clinically significant, sudden or life threatening deterioration of the following system(s) required my full and direct attention, intervention and personal management. The time I documented below is in addition to time spent performing reported procedures but includes the following listed in this critical care notation. Medical Decision Making - Medical Records Medical records reviewed: Yes: I reviewed the patient's medical records. - Giovani Inquiry Pt receiving controlled substance: No Vital Signs: 08/14/20 10:09 08/14/20 10:31 Temperature 98.2 F Temperature Source Oral Pulse Rate 69 Pulse Rate [Left Radial] 79 Respiratory Rate 24 20 Blood Pressure 108/44 L Blood Pressure [Left Arm] 125/54 L Blood Pressure Mean 65 Blood Pressure Mean [Left Arm] 77 Blood Pressure Source [Left Arm] Automatic Cuff Blood Pressure Position [Left Arm] Sitting 02 Sat by Pulse Oximetry 95 98 Oxygen Delivery Method Non-Rebreather Oxygen Flow Rate (LPM) 10 - Lab Data Lab results reviewed: Yes: I reviewed the patient's lab results. Lab Results 08/14/20 10:20: WBC 7.6, RBC 3.12 L, Hgb 8.7 L, Hct 29.1 L, MCV 93.2, MCH 27.7, MCHC 29.8 L, RDW 16.4, Plt Count 150, MPV 10.5 H, Neut % (Auto) 79.2, Lymph % (Auto) 13.3, [place] % (Auto) 6.0, Eos % (Auto) 0.9, Baso % (Auto) 0.6, Neut # (Auto) 6.1, Lymph # (Auto) 1.0, [place] # (Auto) 0.5, Eos # (Auto) 0.1, Baso # (Auto) 0.0 08/14/20 10:20: Sodium 139, Potassium 5.3 H, Chloride 106, Carbon Dioxide 25, Anion Gap 13.3, BUN 49 H, Creatinine 1.40 H, Estimated Creat Clear 42, Estimated GFR 36 L, Est GFR ( Amer) 43 L, Glucose 309 H, Calcium 8.6, Total Bilirubin 0.5, AST 26, ALT 28, Alkaline Phosphatase 67, Total Protein 5.7 L, Albumin 2.9 L, Globulin 2.8, Albumin/Globulin Ratio 1.0 L 08/14/20 10:20: NT-Pro-B Natriuret Pep 84829 H 08/14/20 10:20: Troponin I < 0.01 Result diagrams: 08/14/20 10:20 08/14/20 10:20 Orders (Tests/Meds): ED MEDICATIONS Discontinued Medications Generic Name Dose Route Start Last Admin Trade Name Freq PRN Reason Stop Dose Admin Furosemide 20 mg 08/14/20 10:24 08/14/20 10:32 Furosemide 20 Mg/2 Ml Vial IV 08/14/20 10:25 20 mg ONCE ONE Administration Furosemide 40 mg 08/14/20 11:45 Furosemide 40mg/4ml Vial IV 08/14/20 11:46 ONCE ONE ORDERS Category Date Time Status Full Resp Panel w/COVID ([facility]) Routine Lab 08/14/20 11:48 Ordered Troponin I Q3H Lab 08/14/20 14:15 Ordered Troponin I Q3H Lab 08/14/20 17:15 Ordered - Radiology Data #1 Image(s): Chest Image Reviewed: Yes I reviewed the patient's radiology results Preliminary Findings: Abnormal Improving bilateral airspace opacities - ECG Data Tracing #1 A. fib, 72 bpm, ST and T wave abnormality without specific elevation or depression. ECG initial impression date: 08/14/20 ECG initial impression time: 10:15 - GUSTAVO Score for Non-Stemi Age of Patient: 80-89 years old Heart Rate: 70-89 bpm Systolic Blood Pressure: 120-139 mmhg Serum Creatinine: 1.20-1.59 mg/dl CHF [place] Class: II-Pulmonary Rales or Jug Other Risk Factors: None Non-Stemi Risk Score: 164 Medical Decision Narrative: 85yo F evaluated for shortness of breath. Patient is in mild respiratory distress on arrival. She is satting 100% on 15 L nonrebreather. Oxygen is weaned down to 10 L the patient maintains appropriate O2 saturation. Her physical exam is most consistent with CHF exacerbation, however other possible diagnoses include but are not limited to: ACS/OR, COPD exacerbation, pneumonia, PE, Covid pneumonia, other v
--- NOTE | 2020-08-14 10:13 | XR_ITS ---
PROCEDURE INFORMATION: Exam: XR Chest Exam date and time: 08/14/2020 10:13 AM Age: 85 years old Clinical indication: Cough and shortness of breath; Patient HX: SOA, cough. PT had covid a few weeks ago; Additional info: SOB TECHNIQUE: Imaging protocol: XR of the chest. Views: 1 view. COMPARISON: CR XR CHEST PORTABLE 08/02/2020 9:33 AM FINDINGS: Thoracic spine stimulator wires in place. Cardiac silhouette is unchanged, borderline enlarged. Extensive vascular calcifications. Improved bibasilar airspace opacities. Mild streaky opacities remain. No pleural effusion or pneumothorax. IMPRESSION: Improving bibasilar airspace opacities, with mild pulmonary infiltrate remaining.
--- NOTE | 2020-08-14 10:18 | PC.NURSE ---
pt daughter at BS
--- NOTE | 2020-08-14 10:18 | PC.NURSE ---
[place] and lab staff at
[2020-08-14 10:34] LABS: Basophils % 0.6 % (0.1-2.0); Eosinophils # 0.1 K/mm3 (0.0-0.4); Eosinophils % 0.9 % (0.1-12.0); Hematocrit 29.1 % (37.0-47.0); Hemoglobin 8.7 g/dL (12.2-16.2); Lymphocytes % 13.3 % (10-50); Mean Corpuscular HGB Conc 29.8 g/dL (31.8-35.4); Mean Corpuscular Hemoglobin 27.7 pg (27.0-31.2); Mean Corpuscular Volume 93.2 fl (81-99); Mean Platelet Volume 10.5 fl (7.4-10.4); Monocytes # 0.5 K/mm3 (0.1-1.0); Neutrophils # 6.1 K/mm3 (1.8-7.8); Neutrophils % 79.2 % (37.0-80.0); Platelet Count 150 K/mm3 (142-424); Red Blood Count 3.12 M/mm3 (4.20-5.40); Red Cell Distribution Width 16.4 % (11.5-17.5); White Blood Count 7.6 K/mm3 (4.8-10.8)
[2020-08-14 10:46] LABS: Chloride 106 mmol/L (98-107); Sodium 139 mmol/L (136-145)
[2020-08-14 10:47] LABS: Potassium 5.3 mmoL/L (3.5-5.1)
[2020-08-14 10:49] LABS: Alanine Aminotransferase 28 U/L (12-78); Alkaline Phosphatase 67 U/L (38-126); Aspartate Amino Transferase 26 U/L (14-36); Bilirubin,Total 0.5 mg/dl (0.2-1.3); Blood Urea Nitrogen 49 mg/dl (7-17); Creatinine Clearance Estimated 42 mL/min (50-200); Estimated Glomerular Filt Rate 36 ml/min (>60); GFR (African American) 43 ML/MIN (>60)
[2020-08-14 10:50] LABS: Albumin Level 2.9 g/dl (3.5-5.0); Anion Gap 13.3 mEq/L (5-15); Calcium 8.6 mg/dl (8.4-10.2); Carbon Dioxide 25 mmol/L (22.0-30.0); Globulin 2.8 g/dL (1.3-3.2); Glucose 309 mg/dl (74-100); Total Protein,Serum 5.7 g/dl (6.3-8.2)
[2020-08-14 10:59] LABS: NT Pro Brain Natriuretic Pep. 17900 pg/mL (0-450)
--- NOTE | 2020-08-14 11:13 | PC.NURSE ---
attempted to place pt on bedpain, pt did not tolerate moving around in the bed. Pt family suggested pt get a purewick device for urinary elimination. States pt was recently admitted and used a purewick. MARLENE DILLARD states okay to use purewick device. Purewick placed at this time, suction in place, pt repositioned in bed. Will continue to monitor.
[2020-08-14 11:29] LABS: Troponin I < 0.01 ng/ml (0.00-0.034)
--- NOTE | 2020-08-14 11:43 | PC.NURSE ---
Dr Guerra speaking with Dr Montero
--- NOTE | 2020-08-14 11:58 | PC.NURSE ---
pt switched to nasal cannula at 5L at this time per ER MD order r/t pt SaO2 99% on NRB at 10 L will continue to monitor
[2020-08-14 12:05] LABS: Adenovirus,PCR Not Detected (NotDetected); Bordetella Pertussis Not Detected (NotDetected); Chlamydophila Pneumoniae, PCR Not Detected (NotDetected); Coronavirus 19, PCR Not Detected (NotDetected); Coronavirus 229E Not Detected (NotDetected); Coronavirus NL63 Not Detected (NotDetected); Coronavirus OC43 Not Detected (NotDetected); Coronovirus HKU1,PCR Not Detected (NotDetected); Human Metapneumovirus Not Detected (NotDetected); Influenza A, PCR Not Detected (NotDetected); Influenza AH1, 2009 Not Detected (NotDetected); Influenza AH1, PCR Not Detected (NotDetected); Influenza AH3,PCR Not Detected (NotDetected); Influenza B, PCR Not Detected (NotDetected); Mycoplasma Pneumoniae, PCR Not Detected (NotDetected); Parainfluenza 1, PCR Not Detected (NotDetected); Parainfluenza 2, PCR Not Detected (NotDetected); Parainfluenza 3, PCR Not Detected (NotDetected); Parainfluenza 4, PCR Not Detected (NotDetected); Respiratory Syncytial Virus Not Detected (NotDetected); Rhinovirus/Enterovirus Not Detected (NotDetected)
--- NOTE | 2020-08-14 12:06 | PC.NURSE ---
pt did not tolerate NC at 5L pt now on 50% venti mask per ER MD order, SaO2 90-91%- ER MD aware, will continue to monitor.
--- NOTE | 2020-08-14 12:50 | PC.NURSE ---
pt repositioned on R side at this time
--- NOTE | 2020-08-14 13:12 | HMH.PHAVTE ---
[facility] Pharmacy VTE Monitoring - Patient Demographics Admission date: 08/14/20 Report Date: 08/14/20 Time: 13:12 Allergies/Adverse Reactions: Patient Allergies cefuroxime [From Ceftin] Allergy (Intermediate, Verified 06/25/20 16:09) ciprofloxacin [From Cipro] Allergy (Intermediate, Verified 06/25/20 16:09) rash doxycycline Allergy (Intermediate, Verified 06/25/20 16:09) NSAIDS (Non-Steroidal Anti-Inflamma Allergy (Intermediate, Verified 06/25/20 16:09) aspirin Allergy (Mild, Verified 06/25/20 16:09) asthma attack sulfamethoxazole [From Bactrim] Allergy (Mild, Verified 06/25/20 16:09) rash trimethoprim [From Bactrim] Allergy (Mild, Verified 06/25/20 16:09) rash vancomycin Allergy (Mild, Verified 06/25/20 16:09) rash Height: 1.65 m Weight: 89.811 kg Patient Problems: Current Active Problems CHF exacerbation (Acute) Acute respiratory failure with hypoxia (Acute) - VTE Risk Labs: VTE Related Lab Results Hgb 8.7 g/dL (12.2-16.2) L 08/14/20 10:20 Hct 29.1 % (37.0-47.0) L 08/14/20 10:20 Plt Count 150 K/mm3 (142-424) 08/14/20 10:20 BUN 49 mg/dl (7-17) H 08/14/20 10:20 Creatinine 1.40 mg/dl (0.52-1.04) H 08/14/20 10:20 Estimated Creat Clear 42 mL/min (50-200) 08/14/20 10:20 - Prophylaxis VTE Prophylaxis Ordered?: Yes Types of VTE Prophylaxis: IPCS Thigh High, Pharmacological Pharmacologic Type: Other (XARELTO)
--- NOTE | 2020-08-14 13:51 | PC.NURSE ---
report called anna wesley on second floor
--- NOTE | 2020-08-14 14:30 | HMH.PHAINT ---
MEDICATION RECONCILIATION COMPLETED ON PATIENT USING MAR FROM [facility]. -AMBER GRACE, CALIXTOD
[2020-08-14 15:09] LABS: Troponin I < 0.01 ng/ml (0.00-0.034)
--- NOTE | 2020-08-14 15:41 | HMH.HP ---
*Admission Date: 08/14/20 *Chief complaint: dyspnea *History of present illness: 85yo F with past medical history significant COVID-19, COPD, CHF presents the emergency department secondary to shortness of breath. Patient's [facility] staff found her with O2 saturations in the 60s. She was on 3 L nasal cannula and they report they were unable to further titrate. EMS was called and the patient was brought to the emergency department. Patient reports shortness of breath but denies any pain. She denies any nausea or vomiting. She reports normal urinary output. Laying down makes her shortness of breath worse. Patient's presentation in the emergency room was thought to reflect volume overload. He was given Lasix IV. I discussed her case with the respiratory therapist. She relays that the patient had a propensity for volume overload while she was in the Covid unit. Patient is globally weak, deconditioned. She denies chest pain or abnormal sputum production. She is admitted for further evaluation and treatment [facility] History Medical History: Reports:: Anxiety, Arrhythmia, Asthma, Atrial Fibrillation, Congestive Heart Failure, Chronic Obstructive Pulmonary Disease (COPD), Gastroesophageal Reflux Disease(GERD), Home Oxygen, Hypertension, Osteoporosis, Renal Insufficiency, Urinary Tract Infection Denies:: Cancer, Diabetes Mellitus Type 1, Diabetes Mellitus Type 2, MRSA *Have you ever received a pneumonia vaccine?: No *Have you received a flu vaccine this season?: No Other Medical History: Reports: Anemia, Cataracts, Hormone Therapy, Hypothyroidism, Osteoporosis, Thyroid Disease Laterality Cases: Right: Arthroscopy Shoulder Other Surgeries: Yes: Cardiac Catheterization, Cholecystectomy, Coronary Stent, Hysterectomy-Total Amputation: No Fractures: Yes - *Social History Smoking Status: Former smoker Tobacco Type: cigarettes # Packs/Day (cigarettes): 4 #Yrs smoked (if former smoker): 40 Alcohol Intake: never Substance Use Type: denies use *Occupational Status:: retired Housing: [facility] Household Members: family *Travel in the last 8 weeks: None - Psychiatric History Pschychiatric History:: Reports:: Anxiety Family Hx:: Coronary Artery Disease, Stroke Review of Systems - Constitutional Reports anorexia, Reports daytime sleepiness, Reports fatigue, Reports lack of energy, Reports malaise - Eyes Denies change in vision - ENT Reports abnormal hearing - *Cardiovascular Reports shortness of breath with activity, Reports generalized swelling, Denies chest pain, Denies chest pain at rest - *Respiratory Reports chest congestion, Denies excessive phlegm production, Denies coughing up blood - *Gastrointestinal Denies abdominal pain - *Genitourinary Denies painful urination - *Musculoskeletal Reports decreased muscle mass, Reports muscle weakness - Integumentary/Breasts Denies yellowing of the skin - *Neurologic Reports abnormal walking, Denies behavioral changes, Denies confusion - Psychiatric Reports lack of enjoyment - Endocrine Denies cold intolerance - Hematologic/Lymphatic Denies easy bleeding, Denies easy bruising - Allergic/Immunologic Denies hives Meds Home Medications Medication Instructions Recorded Confirmed Type fluticasone propionate 50 1 spray NS DAILY 02/24/20 08/14/20 History mcg/actuation nasal spray,suspension Fluoxetine HCl [Prozac] 20 mg PO DAILY 07/17/20 08/14/20 History Levothyroxine Sodium [Synthroid 112 mcg PO DAILY 07/17/20 08/14/20 History 112mcg (0.112mg) tablet] Pantoprazole Sodium 40 mg PO DAILY 07/17/20 08/14/20 History Acetaminophen [Acetaminophen 325mg 650 mg PO Q4HP PRN tab 08/03/20 08/14/20 Rx tab] phenoL [Phenol Throat [place] 180mL 0 ml PO Q2HP PRN bottle 08/03/20 08/14/20 Rx Bottle] alprazolam 0.5 mg tablet 0.5 mg PO HS #30 tab 08/04/20 08/14/20 Rx gabapentin 100 mg capsule 100 mg PO BID #60 cap 08/04/20 08/14/20 Rx Ascorbic Acid [Vit
--- NOTE | 2020-08-14 15:49 | PC.NURSE ---
per dr. somers consult can be done sunday.
--- NOTE | 2020-08-14 17:22 | PC.NURSE ---
daughter, Ema, has given pt her dentures (upper and lower). Pt did not originally have these upon admission. Daughter left [facility], went to [place], and returned to [facility] with pt's dentures. Pt is a total feed and is aspirating on thin liquids. Pt does well with honey thick liquids. Daughter wishes for pt to have milk, to which I provided aspiration education. Daughter agrees to honey thick liquids at this time but explains that if pt continues to decline, she will give her milk as this is considered a comfort measure @ EOL.
[2020-08-14 17:34] LABS: Troponin I < 0.01 ng/ml (0.00-0.034)
--- NOTE | 2020-08-14 18:21 | HMH.PTEV ---
Physical Therapy Evaluation Rehab PT IP Evaluation Start: 08/14/20 15:55 Freq: ONCE Status: Active Protocol: Document 08/14/20 18:17 YAW (Rec: 08/14/20 18:20 YAW [id number]) Subjective/History History History 85 y/o female admitted to [facility] for respiratory distress and CHF exacerbation. Pt was recently released from [facility] for COVID to SNF for rehab Subjective Subjective Pt rpeorts she is fatigued from bath Rehab PT IP Eval Objective Appearance Patient Behavior Cooperative,Fatigued Patient Orientation Person,Place,Time Difficulty following instructions none Speech Pattern Soft-Spoken Ambulation Patient Able to Ambulate No Balance Ability to Arise Unable Sitting Balance Leans or slides in chair Dynamic Sitting Balance Ability Poor Transfers Bed Transfer Ability Maximum x 1 (75% assist) Rehab PT IP prob,goals,plan Problems Date of Evaluation: 08/14/20 PT IP Problems Bed Mobility,Transfers,Gait, Self care,Safety Rehab Potential Rehab Potential Fair Equipment Needs Assistive Devices Rolling / Wheeled Walker Plan PT Intervention Plan Bed Mobility,Transfers,Gait, Balance,Self care,Safety, Therapeutic Exercise Discharge Goals Bed Transfer Ability Maximum x 1 (75% assist) Sit to Stand Chair Transfer Ability Maximum x 1 (75% assist) Ambulation Assistive Device Rolling Walker Ambulation Distance (feet) 2 Discharge Plan PT Discharge Plan Pt is very deconditioned and weak from prolonged fight w/ COVID and respiratory distress - pt will need continued care and skilled therapy at SNF s/ p D/C from [facility] - w/out skilled therapy pt faces increased risk of wounds, decline in function and increased burden of care. G -code Required Yes Eval Complexity Eval Charge Codes 24957 - Moderate Complexity G Codes PT Current Status Mobility PT Current Status Modifier CM-At least 80% but less than 100% impaired, limited or restricted PT Goal Status Mobility PT Goal Status Modifer CM-At least 80% but less than 100% impaired
[2020-08-15] VITALS (15 sets, daily range): BP systolic 118–133; BP diastolic 57–83; PULSE 59–100; RESP 16–19; TEMP 37.1–37.6; O2SAT 91–97; BMI 27.1
--- NOTE | 2020-08-15 04:23 | PC.NURSE ---
pt has been sleeping all shift. turned q2h. venti mask has been titrated down to 40% with o2 sat 94%. no acute changes from previous assessment. pt responds to light pain and shaking but is lethargic. was unable to give pt night time medications due to this. once able to arouse pt. pt refused meds. stated im just to tired. edema to BLE and left hand. hand was elevated and edema has decreased in hand but not fingers. call light in reach. periwick in place and clear pale urine noted. vss. will continue to monitor
--- NOTE | 2020-08-15 06:00 | XR_ITS ---
PROCEDURE INFORMATION: Exam: XR Chest Exam date and time: 08/15/2020 6:00 AM Age: 85 years old Clinical indication: Shortness of breath and other: Chf; Prior surgery TECHNIQUE: Imaging protocol: XR of the chest. Views: 1 view. Total images: 1 COMPARISON: CR XR CHEST PORTABLE 08/14/2020 10:20 AM FINDINGS: Tubes, catheters and devices: Spinal stimulator leads in the mid to upper thoracic spine distribution, grossly unchanged. Lungs: Low lung volumes. Mild central vascular congestion. Moderate bilateral perihilar and basilar interstitial and alveolar opacities suggesting either pulmonary edema, atelectasis, or bilateral pulmonary infection/pneumonia. Pleural spaces: Minimal costophrenic angle blunting bilaterally could represent atelectasis or scarring versus minimal basilar effusions. No pneumothorax. Heart/Mediastinum: Mild cardiomegaly. No tracheal/mediastinal shift. Vasculature: Mild aortic ectasia/tortuosity and moderate calcific atherosclerosis. Bones/joints: No acute osseous abnormalities are identified. Osteopenia. IMPRESSION: 1. Perihilar and basilar alveolar opacities consistent with atelectasis, pneumonia, or edema. 2. Low lung volumes. 3. Mild cardiomegaly and central vascular congestion.
[2020-08-15 06:04] LABS: Basophils # 0.1 K/mm3 (0-0.2); Basophils % 0.5 % (0.1-2.0); Eosinophils # 0.2 K/mm3 (0.0-0.4); Eosinophils % 2.1 % (0.1-12.0); Hemoglobin 8.7 g/dL (12.2-16.2); Lymphocytes # 1.5 K/mm3 (0.7-4.5); Lymphocytes % 14.4 % (10-50); Mean Corpuscular HGB Conc 30.8 g/dL (31.8-35.4); Mean Corpuscular Hemoglobin 27.7 pg (27.0-31.2); Monocytes # 0.4 K/mm3 (0.1-1.0); Monocytes % 4.2 % (1.7-9.3); Neutrophils # 8.1 K/mm3 (1.8-7.8); Neutrophils % 78.8 % (37.0-80.0); Platelet Count 158 K/mm3 (142-424); Red Blood Count 3.14 M/mm3 (4.20-5.40); Red Cell Distribution Width 16.3 % (11.5-17.5); White Blood Count 10.3 K/mm3 (4.8-10.8)
[2020-08-15 06:05] LABS: Hematocrit 28.3 % (37.0-47.0)
[2020-08-15 06:15] LABS: Alanine Aminotransferase 22 U/L (12-78); Albumin Level 2.8 g/dl (3.5-5.0); Alkaline Phosphatase 65 U/L (38-126); Anion Gap 6.8 mEq/L (5-15); Aspartate Amino Transferase 19 U/L (14-36); Bilirubin,Total 0.6 mg/dl (0.2-1.3); Blood Urea Nitrogen 45 mg/dl (7-17); Calcium 8.6 mg/dl (8.4-10.2); Carbon Dioxide 32 mmol/L (22.0-30.0); Chloride 107 mmol/L (98-107); Creatinine Clearance Estimated 38 mL/min (50-200); Estimated Glomerular Filt Rate 39 ml/min (>60); GFR (African American) 47 ML/MIN (>60); Globulin 2.9 g/dL (1.3-3.2); Glucose 120 mg/dl (74-100); Potassium 4.8 mmoL/L (3.5-5.1); Sodium 141 mmol/L (136-145); Total Protein,Serum 5.7 g/dl (6.3-8.2)
[2020-08-15 06:46] LABS: Thyroid Stimulating Hormone 1.18 uIU/mL (0.465-4.68)
--- NOTE | 2020-08-15 09:00 | PC.NURSE ---
rounded with Dr. Alamo. He ordered the following: D51/2NS @ 50mL/hr, FSBS ACHS, ABG, CBC, BMP, transfer out of step down to acute, insert major catheter, and wean O2. Faxed order for MIVF to pharmacy. Entered all other orders on his behalf.
--- NOTE | 2020-08-15 09:12 | HMH.ACPN2 ---
Internal Medicine - PN: Subj *Date: 08/16/20 *Time: 07:18 Interval history: arousable but not bala po diet - no focal neuro sx - on o2 - chf s/p covid -19 Exam Vital signs and Labs for Last 24 Hours: Temp Pulse Resp BP Pulse Ox 98.7 F 100 H 17 133/68 97 08/15/20 08:00 08/15/20 06:20 08/15/20 06:00 08/15/20 06:00 08/15/20 06:20 Laboratory Results - last 24 hr 08/14/20 10:20: WBC 7.6, RBC 3.12 L, Hgb 8.7 L, Hct 29.1 L, MCV 93.2, MCH 27.7, MCHC 29.8 L, RDW 16.4, Plt Count 150, MPV 10.5 H, Neut % (Auto) 79.2, Lymph % (Auto) 13.3, [place] % (Auto) 6.0, Eos % (Auto) 0.9, Baso % (Auto) 0.6, Neut # (Auto) 6.1, Lymph # (Auto) 1.0, [place] # (Auto) 0.5, Eos # (Auto) 0.1, Baso # (Auto) 0.0 08/14/20 10:20: Sodium 139, Potassium 5.3 H, Chloride 106, Carbon Dioxide 25, Anion Gap 13.3, BUN 49 H, Creatinine 1.40 H, Estimated Creat Clear 42, Estimated GFR 36 L, Est GFR ( Amer) 43 L, Glucose 309 H, Calcium 8.6, Total Bilirubin 0.5, AST 26, ALT 28, Alkaline Phosphatase 67, Total Protein 5.7 L, Albumin 2.9 L, Globulin 2.8, Albumin/Globulin Ratio 1.0 L 08/14/20 10:20: NT-Pro-B Natriuret Pep 83369 H 08/14/20 10:20: Troponin I < 0.01 08/14/20 11:56: Chlamy pneumoniae PCR Not detected, Adenovirus (PCR) Not detected, B. pertussis DNA (PCR) Not detected, Coronavirus OC43 (PCR) Not detected, Coronavirus HKU1 (PCR) Not detected, Coronavirus 229E (PCR) Not detected, SARS-CoV-2 (PCR) Not detected, Coronavirus NL63 (PCR) Not detected, Human Metapneumovir PCR Not detected, Influenza A (H1) PCR Not detected, Influ A (H1N1/09) PCR Not detected, Influenza A (H3) PCR Not detected, Influenza Type A (PCR) Not detected, Influenza Type B (PCR) Not detected, M. pneumoniae (PCR) Not detected, Parainfluenza 1 (PCR) Not detected, Parainfluenza 2 (PCR) Not detected, Parainfluenza 3 (PCR) Not detected, Parainfluenza 4 (PCR) Not detected, RSV (PCR) Not detected, Entero/Rhino (PCR) Not detected 08/14/20 14:20: Troponin I < 0.01 08/14/20 16:40: Troponin I < 0.01 08/15/20 05:45: WBC 10.3 D, RBC 3.14 L, Hgb 8.7 L, Hct 28.3 L, MCV 90.0, MCH 27.7, MCHC 30.8 L, RDW 16.3, Plt Count 158, MPV 9.0, Neut % (Auto) 78.8, Lymph % (Auto) 14.4, [place] % (Auto) 4.2, Eos % (Auto) 2.1, Baso % (Auto) 0.5, Neut # (Auto) 8.1 H, Lymph # (Auto) 1.5, [place] # (Auto) 0.4, Eos # (Auto) 0.2, Baso # (Auto) 0.1 08/15/20 05:45: Sodium 141, Potassium 4.8, Chloride 107, Carbon Dioxide 32 H D, Anion Gap 6.8, BUN 45 H, Creatinine 1.30 H, Estimated Creat Clear 38, Estimated GFR 39 L, Est GFR ( Amer) 47 L, Glucose 120 H D, Calcium 8.6, Total Bilirubin 0.6, AST 19 D, ALT 22, Alkaline Phosphatase 65, Total Protein 5.7 L, Albumin 2.8 L, Globulin 2.9, Albumin/Globulin Ratio 1.0 L, TSH 1.18 I & O for Last 24 hours: Intake & Output 08/12/20 08/13/20 08/14/20 08/15/20 11:59 11:59 11:59 11:59 Intake Total 60 / 60 Output Total 1200 / 1200 Balance -1140 / -1140 Weight 198 lb 163 lb 1 oz - Constitutional obtunded - *Routine HEENT Exam Head: Present: normocephalic Eye: Present: EOMI, PERRL ENT: Present: mucous membranes dry - *Routine Neck Exam Absent: JVD - *Routine Respiratory Exam Present: decreased breath sounds - *Routine Cardiovascular Exam Present: RRR, murmur, S4 - *Routine Abdominal Exam Present: soft - *Routine Extremities Exam Absent: calf tenderness Comments: chronic changes lower ext - *Routine Skin Exam Present: intact - *Routine Neurological Exam Present: altered mental status - Routine Psychiatric Exam Present: unable to assess Assessment and Plan (1) Acute respiratory failure with hypoxia Status: Acute Category: Medical Code(s): J96.01 - Acute respiratory failure with hypoxia (2) CHF exacerbation Status: Acute Qualifiers: Heart failure type: unspecified Qualified Code(s): I50.9 - Heart failure, unspecified Category: Medical Code(s): I50.9 - Heart failure, unspecified (3) Acute and chronic respiratory failure with
[2020-08-15 09:18] LABS: ABG Base Excess 5.8 mmol/L (-2.4-2.3); ABG Oxygen Saturation 94 % (90-100); ABG PCO2 44.8 mmhg (35.0-45.0); ABG PH 7.44 mmol/L (7.35-7.45); ABG PO2 66.6 mmhg (80-100); ABG TCO2 31.3 mmhg (23-27)
[2020-08-15 09:22] LABS: Allen's Test Acceptable; Oxygen 35% %; Source Right Radial
[2020-08-15 09:25] LABS: Basophils % 0.3 % (0.1-2.0); Eosinophils # 0.3 K/mm3 (0.0-0.4); Eosinophils % 3.4 % (0.1-12.0); Hemoglobin 8.4 g/dL (12.2-16.2); Lymphocytes # 1.6 K/mm3 (0.7-4.5); Lymphocytes % 16.2 % (10-50); Mean Corpuscular Hemoglobin 27.8 pg (27.0-31.2); Mean Corpuscular Volume 89.6 fl (81-99); Monocytes # 0.4 K/mm3 (0.1-1.0); Monocytes % 4.2 % (1.7-9.3); Neutrophils # 7.4 K/mm3 (1.8-7.8); Neutrophils % 75.7 % (37.0-80.0); Platelet Count 155 K/mm3 (142-424); Red Blood Count 3.01 M/mm3 (4.20-5.40); Red Cell Distribution Width 16.3 % (11.5-17.5); White Blood Count 9.8 K/mm3 (4.8-10.8)
[2020-08-15 09:29] LABS: Chloride 104 mmol/L (98-107)
[2020-08-15 09:30] LABS: Potassium 4.8 mmoL/L (3.5-5.1); Sodium 140 mmol/L (136-145)
--- NOTE | 2020-08-15 09:31 | PC.NURSE ---
transitioned pt to 5L NC from 50% venti mask. O2 sat 92% on 5L NC.
[2020-08-15 09:32] LABS: Blood Urea Nitrogen 50 mg/dl (7-17); Creatinine Clearance Estimated 44 mL/min (50-200); Estimated Glomerular Filt Rate 47 ml/min (>60); GFR (African American) 57 ML/MIN (>60)
[2020-08-15 09:33] LABS: Anion Gap 9.8 mEq/L (5-15); Calcium 8.5 mg/dl (8.4-10.2); Carbon Dioxide 31 mmol/L (22.0-30.0); Glucose 115 mg/dl (74-100)
[2020-08-15 10:10] LABS: Microscopic, Urine URINE MICROSCOPIC (MICROSCOPIC)
[2020-08-15 10:20] LABS: Appearance,Urine SL CLOUDY (Clear); Bilirubin,Urine Negative (Negative); Blood, Urine Negative (Negative); Color,Urine YELLOW (Yellow); Glucose,Urine (UA) Negative (Negative); Ketones,Urine Negative (Negative); Leukocyte Esterase,Urine 1+ (Negative); Nitrate,Urine Negative (Negative); PH,Urine 5.5 (5.0-8.5); Protein,Urine Negative (Negative); Urobilinogen,Urine 0.2 EU/dl (0.2)
[2020-08-15 10:35] LABS: Yeast,Urine 2+ /lpf
[2020-08-15 11:26] LABS: POC Glucose,Bedside 256 (70-110)
[2020-08-15 20:26] LABS: POC Glucose,Bedside 177 (70-110)
[2020-08-15 21:40] LABS: POC Glucose,Bedside 168 (70-110)
[2020-08-16] VITALS (12 sets, daily range): BP systolic 111–135; BP diastolic 48–73; PULSE 54–88; RESP 16–22; TEMP 36.8–37.3; O2SAT 92–99; BMI 26.8
--- NOTE | 2020-08-16 03:24 | PC.NURSE ---
pt has had no acute changes. alert and oriented. pt slept most of shift and was turned q2h. redness to coccyx area and dressing was applied to area. 5LNC in use at this time. telemetry reads afib. vss. call light in reach. will continue to monitor
[2020-08-16 06:21] LABS: POC Glucose,Bedside 145 (70-110)
--- NOTE | 2020-08-16 08:01 | CA_ITS ---
APPROVED REPORT EXAM: Comprehensive 2D, Doppler, and color-flow Echocardiogram Shellacker: KELLY Olvera, RVS Ht: 5 ft 4 in Wt: 161lbs BSA: 1.78 BP: 119/70 mmHg Indications: CHF-exacerbation, Anemia 2D Dimensions IVSd 1.06 cm LVEF (Visual) 54.10 % PWd 1.47 cm LA Volume 70.80 mL LVDd 4.23 cm LA Volume Index 39.80 mL/m2 (M/F) 16-34 LVDs 3.06 cm Aortic Root 2.96 cm Left Atrium 2.87 cm Aortic Valve AoV Peak Brady. 155.00 (50-130 cm/s) AO Peak GR. 9.60 mmHg AO Mean GR. 4.50 (<5 mmHg) AO VTI 24.02 (18-25 cm) Tricuspid Valve TR P. Velocity 299.00 cm/s RAP Estimate 10.00 mmHg RVSP 45.90 mmHg Left Ventricle Left atrium is moderately enlarged, left ventricle is normal size, mild concentric left ventricular hypertrophy, visually estimated ejection fraction 50%, there is marked hypokinesis involving the basal septum and inferior basal wall. Endocardial surfaces are poorly visualized, diastolic parameters are not obtained in this study. Right Ventricle Right atrium and right ventricle mildly enlarged with normal contractility. Aortic Valve Aortic valve is thickened and calcified without Doppler evidence of aortic stenosis or aortic insufficiency. Mitral Valve Mitral valve leaflets are minimally thickened, the mitral inflow and tissue Doppler is not obtained. There is moderate mitral regurgitation. Tricuspid Valve Tricuspid valve is grossly normal, there is mild tricuspid regurgitation, calculated right ventricular systolic pressure 46 mmHg. Pulmonic Valve Pulmonic valve is poorly visualized. Great Vessels Aortic root is normal size. Pericardium No significant pericardial effusion noted. Conclusion 1. Biatrial enlargement, normal left ventricular size, mild concentric left ventricular hypertrophy, visually estimated ejection fraction 50% with segmental wall motion abnormality described above. Diastolic parameters are not obtained in this study. 2. Thickened and calcified aortic valve without Doppler evidence of aortic stenosis or aortic insufficiency. 3. Moderate mitral and mild tricuspid regurgitation, calculated right ventricular systolic pressure is 46 mmHg. 4. No significant pericardial effusion noted. Electronically signed by : Jeff Mejias, 08/17/2020 05:25:00
[2020-08-16 08:16] LABS: Basophils % 0.4 % (0.1-2.0); Eosinophils # 0.3 K/mm3 (0.0-0.4); Eosinophils % 4.1 % (0.1-12.0); Hematocrit 26.6 % (37.0-47.0); Hemoglobin 8.3 g/dL (12.2-16.2); Lymphocytes # 1.2 K/mm3 (0.7-4.5); Lymphocytes % 17.7 % (10-50); Mean Corpuscular HGB Conc 31.3 g/dL (31.8-35.4); Mean Corpuscular Volume 89.2 fl (81-99); Mean Platelet Volume 9.5 fl (7.4-10.4); Monocytes # 0.4 K/mm3 (0.1-1.0); Monocytes % 5.9 % (1.7-9.3); Neutrophils # 4.9 K/mm3 (1.8-7.8); Neutrophils % 71.9 % (37.0-80.0); Platelet Count 165 K/mm3 (142-424); Red Blood Count 2.98 M/mm3 (4.20-5.40); Red Cell Distribution Width 16.3 % (11.5-17.5); White Blood Count 6.8 K/mm3 (4.8-10.8)
[2020-08-16 08:22] LABS: Anion Gap 5.3 mEq/L (5-15); Blood Urea Nitrogen 43 mg/dl (7-17); Calcium 7.9 mg/dl (8.4-10.2); Carbon Dioxide 31 mmol/L (22.0-30.0); Chloride 105 mmol/L (98-107); Creatinine Clearance Estimated 36 mL/min (50-200); Estimated Glomerular Filt Rate 39 ml/min (>60); GFR (African American) 47 ML/MIN (>60); Glucose 150 mg/dl (74-100); Potassium 4.3 mmoL/L (3.5-5.1); Sodium 137 mmol/L (136-145)
--- NOTE | 2020-08-16 09:22 | HMH.ACPN2 ---
Internal Medicine - PN: Subj *Date: 08/16/20 *Time: :23 Interval history: pt laying in bed alert and oriented Exam Vital signs and Labs for Last 24 Hours: Temp Pulse Resp BP Pulse Ox 98.2 F 62 19 133/62 94 L 08/16/20 08:00 08/16/20 09:16 08/16/20 08:00 08/16/20 08:00 08/16/20 09:16 Laboratory Results - last 24 hr 08/15/20 08:40: Specimen Source Right radial, O2 % 35%, ABG pH 7.44, ABG pCO2 44.8, ABG pO2 66.6 L, ABG HCO3 30.0 H, ABG Total CO2 31.3 H, ABG O2 Saturation 94, ABG Base Excess 5.8 H, Thanh Test Acceptable 08/15/20 09:10: Urine Color Yellow, Urine Appearance Sl cloudy, Urine pH 5.5, Ur Specific Loa 1.020, Urine Protein Negative, Urine Glucose (UA) Negative, Urine Ketones Negative, Urine Blood Negative, Urine Nitrate Negative, Urine Bilirubin Negative, Urine Urobilinogen 0.2, Ur Leukocyte Esterase 1+ A, Urine RBC None, Urine WBC 10-20, Ur Squamous Epith Cells 10-20, Urine Bacteria None, Urine Yeast 2+ 08/15/20 09:13: WBC 9.8, RBC 3.01 L, Hgb 8.4 L, Hct 27.0 L, MCV 89.6, MCH 27.8, MCHC 31.0 L, RDW 16.3, Plt Count 155, MPV 9.0, Neut % (Auto) 75.7, Lymph % (Auto) 16.2, Hunt % (Auto) 4.2, Eos % (Auto) 3.4, Baso % (Auto) 0.3, Neut # (Auto) 7.4, Lymph # (Auto) 1.6, Hunt # (Auto) 0.4, Eos # (Auto) 0.3, Baso # (Auto) 0.0 08/15/20 09:13: Sodium 140, Potassium 4.8, Chloride 104, Carbon Dioxide 31 H, Anion Gap 9.8, BUN 50 H, Creatinine 1.10 H, Estimated Creat Clear 44, Estimated GFR 47 L, Est GFR ( Amer) 57 L D, Glucose 115 H, Calcium 8.5 08/15/20 11:19: POC Glucose 256 H 08/15/20 16:22: POC Glucose 177 H 08/15/20 21:18: POC Glucose 168 H 08/16/20 06:10: POC Glucose 145 H 08/16/20 08:02: WBC 6.8 D, RBC 2.98 L, Hgb 8.3 L, Hct 26.6 L, MCV 89.2, MCH 28.0, MCHC 31.3 L, RDW 16.3, Plt Count 165, MPV 9.5, Neut % (Auto) 71.9, Lymph % (Auto) 17.7, [place] % (Auto) 5.9, Eos % (Auto) 4.1, Baso % (Auto) 0.4, Neut # (Auto) 4.9, Lymph # (Auto) 1.2, [place] # (Auto) 0.4, Eos # (Auto) 0.3, Baso # (Auto) 0.0 08/16/20 08:02: Sodium 137, Potassium 4.3, Chloride 105, Carbon Dioxide 31 H, Anion Gap 5.3, BUN 43 H, Creatinine 1.30 H, Estimated Creat Clear 36, Estimated GFR 39 L, Est GFR ( Amer) 47 L, Glucose 150 H D, Calcium 7.9 L I & O for Last 24 hours: Intake & Output 08/13/20 08/14/20 08/15/20 08/16/20 11:59 11:59 11:59 11:59 Intake Total 60 / 60 1876 / 1876 Output Total 1200 / 1200 1250 / 1250 Balance -1140 / -1140 626 / 626 Weight 198 lb 163 lb 1 oz 161 lb 1 oz - Constitutional no acute distress, obese, chronically ill appearing - *Routine HEENT Exam Head: Present: normocephalic Eye: Present: PERRL ENT: Present: mucous membranes moist - *Routine Neck Exam Present: supple. Absent: lymphadenopathy - *Routine Respiratory Exam Present: crackles Comments: scattered - *Routine Cardiovascular Exam Present: irregularly irregular - *Routine Abdominal Exam Present: soft, normoactive bowel sounds. Absent: tenderness - *Routine Extremities Exam Present: normal capillary refill. Absent: cyanosis, clubbing, edema - *Routine Skin Exam Present: warm. Absent: rash - *Routine Neurological Exam Present: alert, oriented X3 - Routine Psychiatric Exam Present: normal affect Assessment and Plan (1) Acute respiratory failure with hypoxia Status: Acute Category: Medical Code(s): J96.01 - Acute respiratory failure with hypoxia (2) CHF exacerbation Status: Acute Qualifiers: Heart failure type: unspecified Qualified Code(s): I50.9 - Heart failure, unspecified Category: Medical Code(s): I50.9 - Heart failure, unspecified (3) Acute and chronic respiratory failure with hypoxia Status: Acute Category: Medical Code(s): J96.21 - Acute and chronic respiratory failure with hypoxia (4) Anxiety Status: Chronic Category: Medical Code(s): F41.9 - Anxiety disorder, unspecified (5) Arthritis Status: Chronic Category: Medical Code(s): M19.90 - Unspecified osteoarthrit
--- NOTE | 2020-08-16 09:36 | SW/DCPLANNER ---
Addendum entered by Anna Ha 08/19/20 11:27: Mona confirmed no further COVID testing needed prior to discharge. Addendum entered by Annalena Ha 08/19/20 10:13: The plan is for this patient to discharge back to [facility] today. I have informed Mona with [facility] and she has also stated that patients daughter can visit today. Updated information will be faxed to [facility]. Addendum entered by Anna Ha 08/18/20 10:53: Hospice did speak with patients daughter in room last night. I spoke with daughter this AM and she has stated that her plan is for patient to return to [facility] for SNF level of care (9 days remaining) then at that point make decision to either discharge home with Hospice vs Home Health or continue stay at [facility] with Hospice. I will relay information to Dr Alamo/Justin. Addendum entered by Anna Ha 08/17/20 14:36: Yina with Hospice has stated they have arranged to meet with daughter in patients room today at 5PM. Addendum entered by Anna Ha 08/17/20 11:44: Dr Alamo/Justin ask that I speak with this patients daughter regarding Hospice services. I spoke with Ema (daughter) and she said that Mona with [facility] had suggested Hospice services. Ema stated that she would be willing to speak with a admitting representative from [facility] this evening regarding resources. Ema would be interested in continuing care under Hospice at [facility]. Ema has also asked that Dr Alamo/Justin contact her regarding her mother: I have passed this message along to both. Patient information has been faxed to [facility] and I will follow up once patient information is reviewed. Original Note: This patient currently resides at [facility]. I spoke with Mona from [facility] whom stated that patient is SNF level of care. I will continue to follow up with Mona until patient is medically stable for discharge. Discharge date is unknown at this time.
[2020-08-16 10:59] LABS: POC Glucose,Bedside 213 (70-110)
--- NOTE | 2020-08-16 11:35 | HMH.CNCARD ---
History of Present Illness Consult date: 08/16/20 Requesting physician: Keyon Alamo Consult reason: atrial fibrillation, shortness of breath Chief complaint: Shortness of breath History of present illness: 85-year-old female admitted to [facility] with worsening shortness of breath and low oxygen saturation. Patient is a resident of a local jail for rehabilitation due to post Covid induced CHF. Patient is alert and oriented to person only. Patient does have altered mental status change but is able to answer simple questions as in yes and no. Patient denies chest pain, tightness or pressure. Patient denies shortness of breath. Patient is noted to be on 3 L of O2 by nasal cannula in which this is normal for her. Patient does have history of COPD. 1+ pedal edema noted of the lower extremities bilateral. Patient is currently receiving Lasix IV for diuresing. Patient is post Covid from a month ago. Patient does have history of coronary artery disease. Son is unaware as to whether or not patient has had stents placed in the past. Upon her admission at that time, patient was noted to have atrial fibrillation and was started on Xarelto daily. Patient has no bleeding issues noted. Son is at the bedside. Son states patient is a DNR. Patient does have history of coronary artery disease, COPD renal insufficiency and hypertension. Due to post Covid patient has been extremely weak. Patient's deconditioning is poor. maintenance shop laborer reveals atrial fibrillation with a heart rate of 72 bpm. Patient's heart rate will decrease in the 40s then rebound appropriately to the 60s and 70s. Blood pressure is stable. Creatinine level noted at 1.30 on admission. Creatinine level this a.m. 1.10. Creatinine is improving. Patient is continuing to be diuresed. Patient is down 7 pounds since being admitted. Echocardiogram was obtained to assess LV function and valve status. Preliminary echo reveals EF 54%. Awaiting official echocardiogram results. Pending on the official results of the echocardiogram, medication and treatment changes may be recommended. CXR:IMPRESSION: 1. Perihilar and basilar alveolar opacities consistent with atelectasis, pneumonia, or edema. 2. Low lung volumes. 3. Mild cardiomegaly and central vascular congestion. Discussed plan of care with Dr. Faye. Patient will continue to be diuresed with Lasix as prescribed. Pending on the results of the echocardiogram, medication and treatment therapies may be recommended. Supportive care as needed for this patient. Continue to monitor atrial fibrillation and notify cardiology of any changes. No further cardiac testing is recommended at this time. Thank you for allowing cardiology to participate in the care of this patient. [facility] History I have reviewed the patient's past medical history: Yes Medical History: Reports:: Anxiety, Arrhythmia, Asthma, Atrial Fibrillation, Congestive Heart Failure, Chronic Obstructive Pulmonary Disease (COPD), Gastroesophageal Reflux Disease(GERD), Home Oxygen, Hypertension, Osteoporosis, Renal Insufficiency, Urinary Tract Infection Denies:: Cancer, Diabetes Mellitus Type 1, Diabetes Mellitus Type 2, MRSA *Have you ever received a pneumonia vaccine?: No *Have you received a flu vaccine this season?: No Other Medical History: Reports: Anemia, Cataracts, Hormone Therapy, Hypothyroidism, Osteoporosis, Thyroid Disease Laterality Cases: Right: Arthroscopy Shoulder Other Surgeries: Yes: Cardiac Catheterization, Cholecystectomy, Coronary Stent, Hysterectomy-Total Amputation: No Fractures: Yes - *Social History Smoking Status: Former smoker Tobacco Type: cigarettes # Packs/Day (cigarettes): 4 #Yrs smoked (if former smoker): 40 Alcohol Intake: never Substance Use Type: denies use *Occupational Status:: retired Housing: jail Household Members: family *Travel in the last 8 weeks: None - Psychiatric History Pschychiatric History:: Yemi
--- NOTE | 2020-08-16 12:38 | PC.NURSE ---
TRACELET OFF @ 1235, SITE C/D/I. TELFA AND TEGADERM PLACED OVER SITE. CAP REFILL <3 SEC. MOVING FINGERS FREELY. +2 PULSES PALPABLE.
--- NOTE | 2020-08-16 14:03 | DIET.NUTRFU ---
Addendum entered by Isaura Angel 08/16/20 14:19: Regular diet at this time dt low intakes, will add Na restriction as indicated. BID supplements and TID protein fortified foods on diet order, please encourage pt to prioritize these first. Original Note: Pt with severe protein calorie malnutrition rt CHF/poor recovery COVID with weight loss 9% UBW in just the past month. She states she has not been eating well at [place]. She relates this both to severe fatigue and that she really dislikes their food as well as her dysphagia diet. She has been observed this stay aspirating on thin liquids and nursing altered to honey thickened liquids. Recommend speech eval at some point to evaluate ability to upgrade as this may encourage intakes. She has eaten ~25% so far. In depth diet edu/counseling provided to pt and son on MNT for malnutrition with CHF/COPD, will f/u with daughter as well who is pt's main unit secretary. Pt voiced understanding but is hesitant to take advantage of resources available to her stating I dont want to be too much trouble. Pt again educated on importance nutrition and strongly encouraged to make any requests desired that will help her eat better. Pt is total dependent feeder, please give encouragement/cueing at meal times and offer replacement meals/supplements/snacks with meal refusals and t/o day. Please observe aspiration precautions.
--- NOTE | 2020-08-16 15:05 | PC.NURSE ---
No acute changes this shift. Has remained on 2 L O2 per nasal cannula, no s/s of resp distress. Denies being SOA. HR irregular, A-Fib/A-Flutter noted on tely w/ controlled rate. BLE w/ +2 pitting edema. Abdomen soft, non-tender w/ active BS in all quads. Garcia cath to drain @ bedside w/ clear yellow urine noted. Pt has been turned and repositioned Q2H. Staff/PT have offered to assist pt up to chair, she has refused. She requires someone to feed her @ all meals, has at around 25% of her meals this shift, tolerating well. Family have been at bedside majority of shift. Call ayala w/in reach. Safety in place. No needs voiced @ this time.
[2020-08-16 16:58] LABS: POC Glucose,Bedside 169 (70-110)
[2020-08-16 20:27] LABS: POC Glucose,Bedside 211 (70-110)
[2020-08-16 21:43] LABS: ABG HCO3 25 mmhg (22.0-26.0); ABG PCO2 46.8 mmhg (35.0-45.0); ABG PH 7.35 mmol/L (7.35-7.45); ABG PO2 59.8 mmhg (80-100)
[2020-08-16 21:44] LABS: ABG Base Excess -0.9 mmol/L (-2.4-2.3); ABG Oxygen Saturation 90 % (90-100); ABG TCO2 26.4 mmhg (23-27); Allen's Test Acceptable; Source Right Radial
[2020-08-17] VITALS (13 sets, daily range): BP systolic 125–152; BP diastolic 56–73; PULSE 50–88; RESP 17–23; TEMP 36.4–37.1; O2SAT 90–98; BMI 26.9
--- NOTE | 2020-08-17 04:25 | PC.NURSE ---
pt o2 sat decreased to 75% at 2129 and was noted to have a rattling congestion to upper chest. pt had been drinking honey thick pepsi and eating a candy bar with family at bedside. pt was increased from 2LNC to 50% venti to reach a o2 sat above 90% and ABG was ordered and obtained. pt remains on venti @ 50% at this time. current o2 sat 95%. pt became diaphoretic and less responsive with course crackles to bases @ 0130. notified and lasix given x1. rattling has decreased. all other vss. call light in reach. turned q2h. major in place and draining clear pale urine. iv patent and infusing per order. will continue to monitor
[2020-08-17 06:08] LABS: POC Glucose,Bedside 139 (70-110)
[2020-08-17 06:31] LABS: Basophils % 0.2 % (0.1-2.0); Eosinophils # 0.4 K/mm3 (0.0-0.4); Eosinophils % 5.6 % (0.1-12.0); Hematocrit 27.3 % (37.0-47.0); Hemoglobin 8.4 g/dL (12.2-16.2); Lymphocytes # 1.4 K/mm3 (0.7-4.5); Lymphocytes % 20.9 % (10-50); Mean Corpuscular HGB Conc 30.8 g/dL (31.8-35.4); Mean Corpuscular Hemoglobin 28.1 pg (27.0-31.2); Mean Platelet Volume 8.6 fl (7.4-10.4); Monocytes # 0.4 K/mm3 (0.1-1.0); Monocytes % 6.1 % (1.7-9.3); Neutrophils # 4.4 K/mm3 (1.8-7.8); Neutrophils % 67.2 % (37.0-80.0); Platelet Count 184 K/mm3 (142-424); Red Cell Distribution Width 16.2 % (11.5-17.5); White Blood Count 6.5 K/mm3 (4.8-10.8)
[2020-08-17 06:38] LABS: Anion Gap 7.6 mEq/L (5-15); Blood Urea Nitrogen 42 mg/dl (7-17); Calcium 7.7 mg/dl (8.4-10.2); Carbon Dioxide 30 mmol/L (22.0-30.0); Chloride 102 mmol/L (98-107); Creatinine Clearance Estimated 34 mL/min (50-200); Estimated Glomerular Filt Rate 36 ml/min (>60); GFR (African American) 43 ML/MIN (>60); Glucose 118 mg/dl (74-100); Potassium 3.6 mmoL/L (3.5-5.1); Sodium 136 mmol/L (136-145)
--- NOTE | 2020-08-17 08:37 | HMH.PNCARD ---
Subjective Date: 08/17/20 Time: 08:30 Principal diagnosis: Congestive heart failure exacerbation Interval history: 85-year-old female admitted to facility with congestive heart failure exacerbation. Patient was admitted on 08/14/2020. Patient has had slight improvement of her CHF. Patient has a total loss of 7 pounds since admission after receiving diuretics. Patient continues to receive diuretics IV twice daily. Slight swelling noted of the lower extremity. Patient is alert and oriented to person. Patient is able to answer simple questions. Patient denies chest pain, tightness or pressure. Patient denies shortness of breath but appears short of breath. Patient O2 saturation had dropped to the 60s and patient was then placed on venting mask. Patient's O2 sat remains at high 80s in which she does require a venting mask. library monitor reveals atrial fibrillation with a heart rate in the 70 to 80 bpm. Patient is currently on Xarelto daily for her atrial fibrillation with no bleeding issues noted. BP is stable. Morning labs her creatinine was 1.40 with a BUN of 40. This is elevated since yesterday's labs. Echocardiogram was performed to assess LV function and valve status. Echo reveals EF 50% with segmental wall motion abnormality, moderate mitral and mild tricuspid regurgitation. Echo:Conclusion 1. Biatrial enlargement, normal left ventricular size, mild concentric left ventricular hypertrophy, visually estimated ejection fraction 50% with segmental wall motion abnormality described above. Diastolic parameters are not obtained in this study. 2. Thickened and calcified aortic valve without Doppler evidence of aortic stenosis or aortic insufficiency. 3. Moderate mitral and mild tricuspid regurgitation, calculated right ventricular systolic pressure is 46 mmHg. 4. No significant pericardial effusion noted. Discussed plan of care with Dr. Faye. Due to echocardiogram abnormality noted with segmental wall motion abnormality, would recommend left heart catheterization to assess severity of CAD if pt was hemodynamically stable, due to patient's declining, supportive care is indicated at this time. Patient is a DNR. If PCP and family decide on heart catheterization, please notify cardiology. Continue diuresing patient. Please notify cardiology of any changes in patient status. Supportive care is indicated at this time. Thank you for allowing cardiology to participate in the care of this patient. Exam Vital signs and Labs for Last 24 Hours: Temp Pulse Resp BP Pulse Ox 98 F 88 23 152/70 H 90 L 08/17/20 08:00 08/17/20 08:00 08/17/20 08:00 08/17/20 08:00 08/17/20 08:00 Laboratory Results - last 24 hr 08/16/20 10:47: POC Glucose 213 H 08/16/20 16:12: POC Glucose 169 H 08/16/20 20:10: POC Glucose 211 H 08/16/20 21:39: Specimen Source Right radial, ABG pH 7.35, ABG pCO2 46.8 H, ABG pO2 59.8 L, ABG HCO3 25, ABG Total CO2 26.4, ABG O2 Saturation 90, ABG Base Excess -0.9, Thanh Test Acceptable 08/17/20 05:34: POC Glucose 139 H 08/17/20 05:38: WBC 6.5, RBC 3.00 L, Hgb 8.4 L, Hct 27.3 L, MCV 91.0, MCH 28.1, MCHC 30.8 L, RDW 16.2, Plt Count 184, MPV 8.6, Neut % (Auto) 67.2, Lymph % (Auto) 20.9, [place] % (Auto) 6.1, Eos % (Auto) 5.6, Baso % (Auto) 0.2, Neut # (Auto) 4.4, Lymph # (Auto) 1.4, [place] # (Auto) 0.4, Eos # (Auto) 0.4, Baso # (Auto) 0.0 08/17/20 05:38: Sodium 136, Potassium 3.6, Chloride 102, Carbon Dioxide 30, Anion Gap 7.6, BUN 42 H, Creatinine 1.40 H, Estimated Creat Clear 34, Estimated GFR 36 L, Est GFR ( Amer) 43 L, Glucose 118 H D, Calcium 7.7 L I & O for Last 24 hours: Intake & Output 08/14/20 08/15/20 08/16/20 08/17/20 23:59 23:59 23:59 23:59 Intake Total 60 788 / 848 1895 / 2015 908 / 908 Output Total 900 / 900 900 / 900 1350 / 1350 300 / 300 Balance -840 / -840 -112 / -52 546 / 666 608 / 608 Weight 167 lb 7 oz 163 lb 1 oz 160 lb 14.999 oz 162 lb Microbiology Reports fo
--- NOTE | 2020-08-17 08:51 | HMH.ACPN2 ---
Internal Medicine - PN: Subj *Date: 08/17/20 *Time: 18:50 Interval history: 85-year-old female patient sitting up in bed resting quietly with eyes closed, awakens to verbal stimuli. She denies any chest pain or respiratory distress, my currently reports she feels better than she did yesterday. Oxygenation 95% on 5 L per nasal cannula. Exam Vital signs and Labs for Last 24 Hours: Temp Pulse Resp BP Pulse Ox 98 F 88 23 152/70 H 90 L 08/17/20 08:00 08/17/20 08:00 08/17/20 08:00 08/17/20 08:00 08/17/20 08:00 Laboratory Results - last 24 hr 08/16/20 10:47: POC Glucose 213 H 08/16/20 16:12: POC Glucose 169 H 08/16/20 20:10: POC Glucose 211 H 08/16/20 21:39: Specimen Source Right radial, ABG pH 7.35, ABG pCO2 46.8 H, ABG pO2 59.8 L, ABG HCO3 25, ABG Total CO2 26.4, ABG O2 Saturation 90, ABG Base Excess -0.9, Thanh Test Acceptable 08/17/20 05:34: POC Glucose 139 H 08/17/20 05:38: WBC 6.5, RBC 3.00 L, Hgb 8.4 L, Hct 27.3 L, MCV 91.0, MCH 28.1, MCHC 30.8 L, RDW 16.2, Plt Count 184, MPV 8.6, Neut % (Auto) 67.2, Lymph % (Auto) 20.9, [place] % (Auto) 6.1, Eos % (Auto) 5.6, Baso % (Auto) 0.2, Neut # (Auto) 4.4, Lymph # (Auto) 1.4, [place] # (Auto) 0.4, Eos # (Auto) 0.4, Baso # (Auto) 0.0 08/17/20 05:38: Sodium 136, Potassium 3.6, Chloride 102, Carbon Dioxide 30, Anion Gap 7.6, BUN 42 H, Creatinine 1.40 H, Estimated Creat Clear 34, Estimated GFR 36 L, Est GFR ( Amer) 43 L, Glucose 118 H D, Calcium 7.7 L I & O for Last 24 hours: Intake & Output 08/14/20 08/15/20 08/16/20 08/17/20 23:59 23:59 23:59 23:59 Intake Total 60 / 60 788 / 848 1895 908 / 908 Output Total 900 / 900 900 / 900 1350 / 1350 300 / 300 Balance -840 / -840 -112 / -52 546 / 666 608 / 608 Weight 167 lb 7 oz 163 lb 1 oz 160 lb 14.999 oz 162 lb Microbiology Reports for the Last 24 Hours: Microbiology 08/15/20 09:10 Urine,Catheterized Urine Culture - Preliminary NO GROWTH AFTER 24 HOURS - Constitutional no acute distress, chronically ill appearing - *Routine HEENT Exam Head: Present: normocephalic Eye: Present: EOMI ENT: Present: mucous membranes moist - *Routine Neck Exam Present: trachea midline. Absent: tracheal deviation - *Routine Respiratory Exam Present: rales - *Routine Cardiovascular Exam Present: irregularly irregular - *Routine Abdominal Exam Present: soft, normoactive bowel sounds. Absent: tenderness, firm - *Routine Extremities Exam Present: edema, pulses intact. Absent: cyanosis, clubbing, calf tenderness - *Routine Skin Exam Present: intact, dry, warm. Absent: cyanosis, erythema, jaundice - *Routine Neurological Exam Present: alert, oriented X3. Absent: motor deficit, pronator drift - Routine Psychiatric Exam Present: normal affect, normal thought process. Absent: auditory hallucinations, visual hallucinations Assessment and Plan (1) Acute respiratory failure with hypoxia Status: Acute Category: Medical Code(s): J96.01 - Acute respiratory failure with hypoxia (2) CHF exacerbation Status: Acute Qualifiers: Heart failure type: unspecified Qualified Code(s): I50.9 - Heart failure, unspecified Category: Medical Code(s): I50.9 - Heart failure, unspecified (3) Acute and chronic respiratory failure with hypoxia Status: Acute Category: Medical Code(s): J96.21 - Acute and chronic respiratory failure with hypoxia (4) Anxiety Status: Chronic Category: Medical Code(s): F41.9 - Anxiety disorder, unspecified (5) Arthritis Status: Chronic Category: Medical Code(s): M19.90 - Unspecified osteoarthritis, unspecified site (6) CHF (congestive heart failure) Status: Chronic Qualifiers: Heart failure type: unspecified Heart failure chronicity: unspecified Qualified Code(s): I50.9 - Heart failure, unspecified Category: Medical Code(s): I50.9 - Heart failure, unspecified (7) COPD (chronic obstructive pulmonary diseas
[2020-08-17 11:46] LABS: POC Glucose,Bedside 176 (70-110)
--- NOTE | 2020-08-17 15:58 | PC.NURSE ---
No acute changes noted this shift, patient resting comfortably in bed at this time, on 5LNC, lung sounds coarse in BL bases, has been turned q2h, refused to get OOB but did sit on side of bed with physical therapy once this shift, alert and oriented, distillery worker general equal, generalized weakness noted, voids per FC, urine yellow and clear, abd soft and nontender, has ate over 50% of each meal today, vss, no s/s of distress noted, will continue to monitor.
[2020-08-17 16:48] LABS: POC Glucose,Bedside 164 (70-110)
[2020-08-18] VITALS (13 sets, daily range): BP systolic 107–150; BP diastolic 51–79; PULSE 50–88; RESP 19–22; TEMP 36.5–37.1; O2SAT 91–96; BMI 27.2
--- NOTE | 2020-08-18 05:13 | PC.NURSE ---
NO acute changes. pt rested well overnight. On 5L NC. Lungs diminished with crackles in BL bases.. A&O. Pt turned q2h. No c/o pain or SOA. Garcia in place draining clear yellow urine. Bowel sounds x4, abd soft and nontender. no BM this shift. Iv patent. VSS, call light in reach, no concerns at this time.
[2020-08-18 06:12] LABS: POC Glucose,Bedside 129 (70-110)
[2020-08-18 06:33] LABS: Basophils % 0.5 % (0.1-2.0); Eosinophils # 0.4 K/mm3 (0.0-0.4); Eosinophils % 5.9 % (0.1-12.0); Hemoglobin 8.6 g/dL (12.2-16.2); Lymphocytes # 1.6 K/mm3 (0.7-4.5); Lymphocytes % 27.8 % (10-50); Mean Corpuscular HGB Conc 30.5 g/dL (31.8-35.4); Mean Corpuscular Hemoglobin 27.4 pg (27.0-31.2); Mean Corpuscular Volume 89.8 fl (81-99); Mean Platelet Volume 8.3 fl (7.4-10.4); Monocytes # 0.3 K/mm3 (0.1-1.0); Monocytes % 5.8 % (1.7-9.3); Neutrophils # 3.5 K/mm3 (1.8-7.8); Neutrophils % 60.1 % (37.0-80.0); Platelet Count 223 K/mm3 (142-424); Red Blood Count 3.12 M/mm3 (4.20-5.40); Red Cell Distribution Width 16.4 % (11.5-17.5); White Blood Count 5.9 K/mm3 (4.8-10.8)
[2020-08-18 06:43] LABS: Anion Gap 5.7 mEq/L (5-15); Blood Urea Nitrogen 37 mg/dl (7-17); Calcium 7.6 mg/dl (8.4-10.2); Carbon Dioxide 32 mmol/L (22.0-30.0); Chloride 101 mmol/L (98-107); Creatinine Clearance Estimated 40 mL/min (50-200); Estimated Glomerular Filt Rate 43 ml/min (>60); GFR (African American) 52 ML/MIN (>60); Glucose 121 mg/dl (74-100); Potassium 3.7 mmoL/L (3.5-5.1); Sodium 135 mmol/L (136-145)
--- NOTE | 2020-08-18 08:54 | HMH.ACPN2 ---
Internal Medicine - PN: Subj *Date: 08/18/20 *Time: 21:42 Interval history: 85-year-old patient resting in bed quietly with eyes open, awakens to verbal stimuli. She denies any chest pain during the night, current oxygenation 93% on 3 L per nasal cannula. Patient encouraged to be up out of bed in chair for all meals Exam Vital signs and Labs for Last 24 Hours: Temp Pulse Resp BP Pulse Ox 98.8 F 82 21 138/73 96 08/18/20 07:56 08/18/20 07:56 08/18/20 07:56 08/18/20 07:56 08/18/20 07:56 Laboratory Results - last 24 hr 08/17/20 11:29: POC Glucose 176 H 08/17/20 16:31: POC Glucose 164 H 08/18/20 05:54: WBC 5.9, RBC 3.12 L, Hgb 8.6 L, Hct 28.0 L, MCV 89.8, MCH 27.4, MCHC 30.5 L, RDW 16.4, Plt Count 223, MPV 8.3, Neut % (Auto) 60.1, Lymph % (Auto) 27.8, Jennings % (Auto) 5.8, Eos % (Auto) 5.9, Baso % (Auto) 0.5, Neut # (Auto) 3.5, Lymph # (Auto) 1.6, Jennings # (Auto) 0.3, Eos # (Auto) 0.4, Baso # (Auto) 0.0 08/18/20 05:54: Sodium 135 L, Potassium 3.7, Chloride 101, Carbon Dioxide 32 H, Anion Gap 5.7, BUN 37 H, Creatinine 1.20 H, Estimated Creat Clear 40, Estimated GFR 43 L, Est GFR ( Amer) 52 L D, Glucose 121 H, Calcium 7.6 L 08/18/20 05:57: POC Glucose 129 H I & O for Last 24 hours: Intake & Output 08/15/20 08/16/20 08/17/20 08/18/20 23:59 23:59 23:59 23:59 Intake Total 788 / 848 1895 / 2015 2219 / 2219 Output Total 900 / 900 1350 / 1350 1400 / 1400 700 / 700 Balance -112 / -52 546 / 666 819 / 819 -700 / -700 Weight 163 lb 1 oz 160 lb 14.999 oz 162 lb 163 lb 5 oz Microbiology Reports for the Last 24 Hours: Microbiology 08/15/20 09:10 Urine,Catheterized Urine Culture - Final NO GROWTH AFTER 48 HOURS - Constitutional no acute distress, chronically ill appearing - *Routine HEENT Exam Head: Present: normocephalic Eye: Present: EOMI ENT: Present: mucous membranes dry - *Routine Neck Exam Present: trachea midline. Absent: tracheal deviation - *Routine Respiratory Exam Present: accessory muscle use, diminished air movement - *Routine Cardiovascular Exam Present: irregularly irregular - *Routine Abdominal Exam Present: soft, normoactive bowel sounds. Absent: tenderness, guarding - *Routine Extremities Exam Present: edema, pulses intact, calf tenderness. Absent: cyanosis - *Routine Skin Exam Present: dry, lesions. Absent: cyanosis, erythema - *Routine Neurological Exam Present: alert, oriented X3. Absent: motor deficit, plantar reflex - Routine Psychiatric Exam Present: normal affect. Absent: auditory hallucinations, visual hallucinations Assessment and Plan (1) Acute respiratory failure with hypoxia Status: Acute Category: Medical Code(s): J96.01 - Acute respiratory failure with hypoxia (2) CHF exacerbation Status: Acute Qualifiers: Heart failure type: unspecified Qualified Code(s): I50.9 - Heart failure, unspecified Category: Medical Code(s): I50.9 - Heart failure, unspecified (3) Acute and chronic respiratory failure with hypoxia Status: Acute Category: Medical Code(s): J96.21 - Acute and chronic respiratory failure with hypoxia (4) Anxiety Status: Chronic Category: Medical Code(s): F41.9 - Anxiety disorder, unspecified (5) Arthritis Status: Chronic Category: Medical Code(s): M19.90 - Unspecified osteoarthritis, unspecified site (6) CHF (congestive heart failure) Status: Chronic Qualifiers: Heart failure type: unspecified Heart failure chronicity: unspecified Qualified Code(s): I50.9 - Heart failure, unspecified Category: Medical Code(s): I50.9 - Heart failure, unspecified (7) COPD (chronic obstructive pulmonary disease) Status: Chronic Qualifiers: COPD type: unspecified COPD Qualified Code(s): J44.9 - Chronic obstructive pulmonary disease, unspecified Category: Medical Code(s): J44.9 - Chronic obstructive pulmonary disease, unspecified (8) Cardiomyo
--- NOTE | 2020-08-18 14:42 | DIET.NUTRFU ---
Pt ate really good yesterday thanks to excellent efforts encouragement/cueing from nursing she was able to eat ~50% all meals + BID supplements and TID fortified foods. She unfortunately has not done as well today, 10% both meals but did drink most of her supplements. Pt is motivated to eat adequately and voices understanding importance nutrition, she is just weak and requires assistance/encouragement, continued efforts appreciated. She really likes the Breeze supplements and fears that ensure gives her diarrhea, order altered to TID Breeze. She continues on [facility] soft/regular diet with honey thickened liquids and TID protein fortified foods as well.
[2020-08-18 14:44] LABS: POC Glucose,Bedside 169 (70-110)
--- NOTE | 2020-08-18 14:45 | FL_ITS ---
PROCEDURE: FL BARIUM SWALLOW MODIFIED CLINICAL INDICATION: Dysphagia COMPARISON: No exams were available for comparison TECHNIQUE: Patient administered varying consistencies of barium contrast, while viewed in lateral position under real-time fluoroscopy with cine recording. FLUOROSCOPY TIME:3 minutes and 19 seconds The study was performed in conjunction with speech pathologist. Please see that report & recommendations. FINDINGS: Patient was given varying consistencies of barium. Aspiration was noted with thin liquids without cough reflex. This did not improve with chin tuck technique. No aspiration with nectar. There was some spillage. No aspiration with pudding. No aspiration with puree. Silent aspiration noted with repeat thins there was some minimal penetration with honey. There is poor bolus formation with mechanical soft and delayed initiation of the swallowing reflex. There was some stasis noted. IMPRESSION: Abnormal modified barium swallow with silent aspiration with thin and poor bolus formation with delay in initiation of the swallowing mechanism with some stasis. Please see speech pathologist report and recommendations. Dictated by: Thanh Galo MD 08/19/2020 18:27 Thanh Galo MD in [place] 08/19/2020 18:27
--- NOTE | 2020-08-18 15:54 | PC.NURSE ---
PT IS RESTING IN BED WITH FAMILY IN THE ROOM. PT HAS BEEN ALERT AND ORIENTED X4 T/O THE SHIFT BUT STATES SHE IS VERY WEAK. PT WAS A 2 MAX ASSIST TO GET OOB TO [facility]. FROM THE [facility] TO THE RECLINER IT TOOK 3 NURSING STAFF TO TRANSFER PT ( PT WAS ALSO WEARING A GAIT BELT). PT WAS TOTALLY NON WEIGHT BEARING. PT STATED SHE DID NOT THINK SHE WOULD EVER BE ABLE TO WALK AGAIN. SPEECH DISCUSSED PT'S MODIFIED TEST WITH PT AND PT'S DAUGHTER AND PT STILL NEEDS TO CONTINUE THE THICKENED LIQUIDS AND A PUREED DIET. PT AND PT'S DAUGHTER STATED THAT SHE DID NOT WANT TO DO THE PUREED DIET B/C SHE HAS HAD IT IN THE PAST AND DID NOT LIKE IT. PT STATED SHE KNEW SHE WAS NOT GOING TO BE IN THIS WORLD LONG SO SHE WANTS TO BE ABLE TO ENJOY IT WHILE SHE CAN. AFIB/AFLUTTER ON THE MONITOR. LUNG SOUNDS DIMINISHED WITH FINE CRACKLES IN THE BASES. ABDOMEN SOFT/NON TENDER WITH ACTIVE BOWEL SOUNDS. PT HAS HAD 3 SOFT BOWEL MOVEMENTS THIS SHIFT. TURNED AND REPOSITIONED Q2H. WILL CONTINUE TO MONITOR.
[2020-08-18 18:21] LABS: POC Glucose,Bedside 176 (70-110)
--- NOTE | 2020-08-18 18:23 | HMH.SLMBS2 ---
Speech & Language Evaluation Speech/Language Mod Barium Swallow Start: 08/18/20 14:45 Freq: ONCE Status: Complete Protocol: Document 08/18/20 17:46 CMAChelle (Rec: 08/18/20 18:23 CMAY [id number]) General Information General Current Food Consistancy Regular,Honey Liquids Dentition Good Dentition Oxygen Status Nasal Cannula Patient Orientation Person,Place,Time,Situation Ability to Follow Directions Excellent Communication Ability No Impairment MBS Recommendations Diet Dietary Recommendations Pureed,[place] Liquids Treatment/Strategies Strategy/Precaution Recommend Sitting Upright (90 deg),Small Bites and Sips Mod Barium Swallow Impressions Summary and Impressions Oral Phase Impression Mild Impairment Oral Phase Summary Oral phase was mildly impaired due to decreased chewing of MS food consistency. This could have been secondary to patient's overall weakness and fatigue. Pharyngeal Phase Impression Severe Impairment Pharyngeal Phase Summary Pharyngeal phase was severely impaired due to episodes of silent aspiration observed with thin liquids via cup and straw. Speech/Language MBS Assessment/Goals/Plan Assessment Date of Evaluation: 08/18/20 Evaluation Type Initial Certification Assessment/Problems Dysphagia Does Patient Qualify for Service No Qualify/Failure Comment At this time, patient does not qualify for services based upon patient and family wishes . Recommendations PHYSICIAN CERTIFICATION: The specified therapy services are required, authorized, and reviewed every 30 days. Diet Recommendations Pureed Liquid Type Recommendations [place] Consistency SL Swallow Guidelines High aspiration risk,Crush meds as allowed*,Oral care pre /post meals Dysphagia Swallow Precautions/Strategies Sitting Upright (90 deg),Small Bites and Sips Plan Pt/Guardian verbally ack understanding Yes of dx/prognosis/goals G -code Required No Education Instructions provided Education provided to patient and family member regarding safest LRD and strategies to implement. They expressed understanding but patient wished to eat what she likes. Pt/Care
--- NOTE | 2020-08-18 18:47 | HMH.SLMBS2 ---
Speech & Language Evaluation Speech/Language Mod Barium Swallow Start: 08/18/20 14:45 Freq: ONCE Status: Complete Protocol: Document 08/18/20 17:46 CMAChelle (Rec: 08/18/20 18:23 CMAY [id number]) General Information General Current Food Consistancy Regular,Honey Liquids Dentition Good Dentition Oxygen Status Nasal Cannula Patient Orientation Person,Place,Time,Situation Ability to Follow Directions Excellent Communication Ability No Impairment MBS Recommendations Diet Dietary Recommendations Pureed,[place] Liquids Treatment/Strategies Strategy/Precaution Recommend Sitting Upright (90 deg),Small Bites and Sips Mod Barium Swallow Impressions Summary and Impressions Oral Phase Impression Mild Impairment Oral Phase Summary Oral phase was mildly impaired due to decreased chewing of MS food consistency. This could have been secondary to patient's overall weakness and fatigue. Pharyngeal Phase Impression Severe Impairment Pharyngeal Phase Summary Pharyngeal phase was severely impaired due to episodes of silent aspiration observed with thin liquids via cup and straw. Speech/Language MBS Assessment/Goals/Plan Assessment Date of Evaluation: 08/18/20 Evaluation Type Initial Certification Assessment/Problems Dysphagia Does Patient Qualify for Service No Qualify/Failure Comment At this time, patient does not qualify for services based upon patient and family wishes . Recommendations PHYSICIAN CERTIFICATION: The specified therapy services are required, authorized, and reviewed every 30 days. Diet Recommendations Pureed Liquid Type Recommendations [place] Consistency SL Swallow Guidelines High aspiration risk,Crush meds as allowed*,Oral care pre /post meals Dysphagia Swallow Precautions/Strategies Sitting Upright (90 deg),Small Bites and Sips Plan Pt/Guardian verbally ack understanding Yes of dx/prognosis/goals G -code Required No Education Instructions provided Education provided to patient and family member regarding safest LRD and strategies to implement. They expressed understanding but patient wished to eat what she likes. Pt/Care
[2020-08-18 19:56] LABS: POC Glucose,Bedside 180 (70-110)
[2020-08-19 04:00] VITALS: BP 116/57; PULSE 81; RESP 22; TEMP 36.4; O2SAT 92
[2020-08-19 05:00] VITALS: BMI 27.5
[2020-08-19 05:24] LABS: POC Glucose,Bedside 135 (70-110)
[2020-08-19 06:33] VITALS: PULSE 80; O2SAT 89
[2020-08-19 07:41] VITALS: BP 154/70; PULSE 76; RESP 17; TEMP 36.4; O2SAT 90
[2020-08-19 07:43] LABS: Basophils % 0.5 % (0.1-2.0); Eosinophils # 0.4 K/mm3 (0.0-0.4); Hematocrit 28.2 % (37.0-47.0); Hemoglobin 8.9 g/dL (12.2-16.2); Lymphocytes # 1.9 K/mm3 (0.7-4.5); Lymphocytes % 32.3 % (10-50); Mean Corpuscular HGB Conc 31.5 g/dL (31.8-35.4); Mean Corpuscular Hemoglobin 27.4 pg (27.0-31.2); Mean Platelet Volume 8.6 fl (7.4-10.4); Monocytes # 0.5 K/mm3 (0.1-1.0); Monocytes % 7.8 % (1.7-9.3); Neutrophils # 3.1 K/mm3 (1.8-7.8); Neutrophils % 53.5 % (37.0-80.0); Platelet Count 299 K/mm3 (142-424); Red Blood Count 3.24 M/mm3 (4.20-5.40); Red Cell Distribution Width 16.2 % (11.5-17.5); White Blood Count 5.9 K/mm3 (4.8-10.8)
[2020-08-19 07:54] LABS: Anion Gap 5.4 mEq/L (5-15); Blood Urea Nitrogen 35 mg/dl (7-17); Calcium 7.8 mg/dl (8.4-10.2); Carbon Dioxide 31 mmol/L (22.0-30.0); Chloride 101 mmol/L (98-107); Creatinine Clearance Estimated 37 mL/min (50-200); Estimated Glomerular Filt Rate 39 ml/min (>60); GFR (African American) 47 ML/MIN (>60); Glucose 130 mg/dl (74-100); Potassium 3.4 mmoL/L (3.5-5.1); Sodium 134 mmol/L (136-145)
[2020-08-19 08:00] VITALS: BP 127/49; PULSE 79; RESP 20; TEMP 36.5; O2SAT 91
[2020-08-19 12:07] LABS: POC Glucose,Bedside 183 (70-110)
--- NOTE | 2020-08-19 12:51 | HMH.DCSUM ---
General - General Admission date:: 08/14/20 <Keyon Alamo - 08/19/20 20:15> 08/14/20 <Lauren Moore - 08/19/20 13:01> Discharge date: 08/19/20 <Lauren Moore - 08/19/20 13:01> HPI HPI: 85yo F with past medical history significant COVID-19, COPD, CHF presents the emergency department secondary to shortness of breath. Patient's custodial staff found her with O2 saturations in the 60s. She was on 3 L nasal cannula and they report they were unable to further titrate. EMS was called and the patient was brought to the emergency department. Patient reports shortness of breath but denies any pain. She denies any nausea or vomiting. She reports normal urinary output. Laying down makes her shortness of breath worse. Patient's presentation in the emergency room was thought to reflect volume overload. He was given Lasix IV. I discussed her case with the respiratory therapist. She relays that the patient had a propensity for volume overload while she was in the Covid unit. Patient is globally weak, deconditioned. She denies chest pain or abnormal sputum production. She is admitted for further evaluation and treatment <Lauren Moore - 08/19/20 13:01> Hospital Course Hospital Course: Laboratory Last Values WBC 5.9 K/mm3 (4.8-10.8) 08/19/20 07:18 RBC 3.24 M/mm3 (4.20-5.40) L 08/19/20 07:18 Hgb 8.9 g/dL (12.2-16.2) L 08/19/20 07:18 Hct 28.2 % (37.0-47.0) L 08/19/20 07:18 MCV 87.0 fl (81-99) 08/19/20 07:18 MCH 27.4 pg (27.0-31.2) 08/19/20 07:18 MCHC 31.5 g/dL (31.8-35.4) L 08/19/20 07:18 RDW 16.2 % (11.5-17.5) 08/19/20 07:18 Plt Count 299 K/mm3 (142-424) D 08/19/20 07:18 MPV 8.6 fl (7.4-10.4) 08/19/20 07:18 Neut % (Auto) 53.5 % (37.0-80.0) 08/19/20 07:18 Lymph % (Auto) 32.3 % (10-50) 08/19/20 07:18 Power % (Auto) 7.8 % (1.7-9.3) 08/19/20 07:18 Eos % (Auto) 6.0 % (0.1-12.0) 08/19/20 07:18 Baso % (Auto) 0.5 % (0.1-2.0) 08/19/20 07:18 Neut # (Auto) 3.1 K/mm3 (1.8-7.8) 08/19/20 07:18 Lymph # (Auto) 1.9 K/mm3 (0.7-4.5) 08/19/20 07:18 Power # (Auto) 0.5 K/mm3 (0.1-1.0) 08/19/20 07:18 Eos # (Auto) 0.4 K/mm3 (0.0-0.4) 08/19/20 07:18 Baso # (Auto) 0.0 K/mm3 (0-0.2) 08/19/20 07:18 Specimen Source Right radial 08/16/20 21:39 O2 % 35% % 08/15/20 08:40 ABG pH 7.35 mmol/L (7.35-7.45) 08/16/20 21:39 ABG pCO2 46.8 mmhg (35.0-45.0) H 08/16/20 21:39 ABG pO2 59.8 mmhg (80-100) L 08/16/20 21:39 ABG HCO3 25 mmhg (22.0-26.0) 08/16/20 21:39 ABG Total CO2 26.4 mmhg (23-27) 08/16/20 21:39 ABG O2 Saturation 90 % (90-100) 08/16/20 21:39 ABG Base Excess -0.9 mmol/L (-2.4-2.3) 08/16/20 21:39 Thanh Test Acceptable 08/16/20 21:39 Sodium 134 mmol/L (136-145) L 08/19/20 07:18 Potassium 3.4 mmoL/L (3.5-5.1) L 08/19/20 07:18 Chloride 101 mmol/L (98-107) 08/19/20 07:18 Carbon Dioxide 31 mmol/L (22.0-30.0) H 08/19/20 07:18 Anion Gap 5.4 mEq/L (5-15) 08/19/20 07:18 BUN 35 mg/dl (7-17) H 08/19/20 07:18 Creatinine 1.30 mg/dl (0.52-1.04) H 08/19/20 07:18 Estimated Creat Clear 37 mL/min (50-200) 08/19/20 07:18 Estimated GFR 39 ml/min (>60) L 08/19/20 07:18 Est GFR ( Amer) 47 ML/MIN (>60) L 08/19/20 07:18 Glucose 130 mg/dl (74-100) H 08/19/20 07:18 POC Glucose 183 (70-110) H 08/19/20 11:45 Calcium 7.8 mg/dl (8.4-10.2) L 08/19/20 07:18 Total Bilirubin 0.6 mg/dl (0.2-1.3) 08/15/20 05:45 AST 19 U/L (14-36) D 08/15/20 05:45 ALT 22 U/L (12-78) 08/15/20 05:45 Alkaline Phosphatase 65 U/L (38-126) 08/15/20 05:45 Troponin I < 0.01 ng/ml (0.00-0.034) 08/14/20 16:40 NT-Pro-B Natriuret Pep 22804 pg/mL (0-450) H 08/14/20 10:20 Total Protein 5.7 g/dl (6.3-8.2) L 08/15/20 05:45
[2020-08-19 15:48] VITALS: BP 124/52; PULSE 78; RESP 18; TEMP 36.3; O2SAT 95
[2020-08-19 16:51] LABS: POC Glucose,Bedside 165 (70-110)
--- NOTE | 2020-08-19 17:23 | PC.NURSE ---
Have spoke with Chang Moore APRN and made her aware meds needed to be reconciled on d/c summary in order to d/c pt. Have notified again, still unable to do d/c at this time. Have called report to [facility].
--- NOTE | 2020-08-19 18:13 | PC.NURSE ---
This RN attempted to call again for meds to be reconciled for d/c and was unable to reach Chang Moore APRN.
--- NOTE | 2020-08-19 20:00 | PC.NURSE ---
Pt still remains here, explained to nora zurita and they stated they would take her anytime. Have also notified Dr. Terrazas multifocal button generator for Dr. Leon. Still unable to reconcile meds. Have gave report to A FLAVIA Rangel as well as made charger operator helper aware A FLAVIA Gordillo.
[2020-08-19 22:55] LABS: POC Glucose,Bedside 163 (70-110)
--- NOTE | 2020-08-19 23:33 | PC.NURSE ---
PT WAS D/C VIA STRETCHER W/ EMS AT [id number]
--- NOTE | 2020-08-19 23:41 | PC.NURSE ---
Patient left floor with EMS en route to [place] at 2332. VSS B/P 137/72 HR 85 Temp 97.9 F, SpO2 94 and RR 17. Patient left in NAD
== END 2020-08-19 23:34 | DRG 291 ==
LOC: ER 10:13 → 2ND 12:03
PROVIDERS: Family Medicine; Nurse Practitioner Family; Admitting Provider Family Medicine; Emergency Provider Family Medicine; PCP Emergency Medicine; Visit Provider Emergency Medicine
DX: I11.0 Hypertensive heart disease with heart failure (principal); J96.21 Acute and chronic respiratory failure with hypoxia; I50.33 Acute on chronic diastolic (congestive) heart failure; I42.9 Cardiomyopathy, unspecified; Z86.16 Personal history of COVID-19; Z88.1 Allergy status to other antibiotic agents; Z88.2 Allergy status to sulfonamides; Z88.8 Allergy status to other drugs, medicaments and biological substances; Z99.81 Dependence on supplemental oxygen; M81.0 Age-related osteoporosis without current pathological fracture; E03.9 Hypothyroidism, unspecified; Z95.5 Presence of coronary angioplasty implant and graft; Z87.891 Personal history of nicotine dependence; F41.9 Anxiety disorder, unspecified; J44.9 Chronic obstructive pulmonary disease, unspecified; K21.9 Gastro-esophageal reflux disease without esophagitis; M19.90 Unspecified osteoarthritis, unspecified site; I48.91 Unspecified atrial fibrillation; Z66 Do not resuscitate; Z79.01 Long term (current) use of anticoagulants; I08.1 Rheumatic disorders of both mitral and tricuspid valves; D64.9 Anemia, unspecified
CPT/HCPCS: 36415; 70371; 71045; 80048; 80053; 81001; 82803; 82962; 83880; 84443; 84484; 85025; 87086; 87581; 87633; 87798; 92611; 93005; 93308; 94640; 96374; 96376; 97162; 97530; 99284

== ENCOUNTER 2020-08-24 17:33 | Emergency (ER) | payer MEDICARE, OTHER, SELFPAY ==
[2020-08-24] VITALS (12 sets, daily range): BP systolic 105–144; BP diastolic 49–81; PULSE 73–119; RESP 16–23; TEMP 37.4–38.8; O2SAT 91–100; BMI 34.4
--- NOTE | 2020-08-24 17:46 | XR_ITS ---
PROCEDURE INFORMATION: Exam: XR Chest Exam date and time: 08/24/2020 5:46 PM Age: 85 years old Clinical indication: Shortness of breath; Prior surgery; Surgery date: 6+ months; Surgery type: Stimulator and pain pump; Patient HX: SOA, copd, congestive heart failure TECHNIQUE: Imaging protocol: XR of the chest. Views: 1 view. COMPARISON: CR XR CHEST PORTABLE 08/15/2020 6:46 AM FINDINGS: Tubes, catheters and devices: Spinal stimulator is noted. Lungs: The lungs are hyperinflated, consistent with underlying small airways disease. Atelectatic and/or early infiltrative changes noted within both lung bases. Pleural spaces: Unremarkable. No pleural effusion. No pneumothorax. Heart/Mediastinum: Unremarkable. No cardiomegaly. Vasculature: The vasculature demonstrates diffuse moderate atherosclerotic calcification. Bones/joints: The thoracic spine demonstrates moderate degenerative changes at multiple levels. IMPRESSION: 1. The lungs are hyperinflated, consistent with underlying small airways disease. 2. Atelectatic and/or early infiltrative changes noted within both lung bases.
--- NOTE | 2020-08-24 17:46 | ECG_ITS ---
APPROVED REPORT Exam: Resting ECG HR:119 bpm ECG Measurements Heart Rate 119 AXES QRSd 90 QRS 14 QT 346 T 120 QTc 486 Conclusion Atrial fibrillation with rapid ventricular response Nonspecific T wave abnormality Abnormal ECG Electronically signed by : Antonio Soto, 08/25/2020 17:57:09
[2020-08-24 17:57] LABS: ABG Base Excess 1.5 mmol/L (-2.4-2.3); ABG HCO3 26.1 mmhg (22.0-26.0); ABG Oxygen Saturation 98 % (90-100); ABG PCO2 41.5 mmhg (35.0-45.0); ABG PH 7.42 mmol/L (7.35-7.45); ABG PO2 101.3 mmhg (80-100); ABG TCO2 27.3 mmhg (23-27)
[2020-08-24 18:02] LABS: Allen's Test Acceptable; Source Right Radial
[2020-08-24 18:30] LABS: Anion Gap 10.3 mEq/L (5-15); Blood Urea Nitrogen 40 mg/dl (7-17); Calcium 8.5 mg/dl (8.4-10.2); Carbon Dioxide 31 mmol/L (22.0-30.0); Chloride 101 mmol/L (98-107); Creatinine Clearance Estimated 40 mL/min (50-200); Estimated Glomerular Filt Rate 31 ml/min (>60); GFR (African American) 37 ML/MIN (>60); Glucose 168 mg/dl (74-100); Potassium 4.3 mmoL/L (3.5-5.1); Sodium 138 mmol/L (136-145)
[2020-08-24 18:40] LABS: Basophils # 0.1 K/mm3 (0-0.2); Basophils % 0.3 % (0.1-2.0); Eosinophils # 0.2 K/mm3 (0.0-0.4); Hematocrit 33.5 % (37.0-47.0); Hemoglobin 10.3 g/dL (12.2-16.2); Lymphocytes # 3.4 K/mm3 (0.7-4.5); Mean Corpuscular HGB Conc 30.7 g/dL (31.8-35.4); Mean Corpuscular Hemoglobin 27.2 pg (27.0-31.2); Mean Corpuscular Volume 88.8 fl (81-99); Mean Platelet Volume 8.2 fl (7.4-10.4); Monocytes # 0.7 K/mm3 (0.1-1.0); Monocytes % 3.6 % (1.7-9.3); Neutrophils # 14.4 K/mm3 (1.8-7.8); Platelet Count 484 K/mm3 (142-424); Red Blood Count 3.78 M/mm3 (4.20-5.40); Red Cell Distribution Width 16.7 % (11.5-17.5); White Blood Count 18.7 K/mm3 (4.8-10.8)
[2020-08-24 18:42] LABS: MANUAL DIFFERENTIAL MANUAL DIFFERENTIAL (MANUAL DIFF); Troponin I < 0.01 ng/ml (0.00-0.034)
--- NOTE | 2020-08-24 19:01 | HMH.EDGENADL ---
ED Disposition Clinical Impression: Dyspnea, CHF (congestive heart failure), COPD (chronic obstructive pulmonary disease), Diastolic heart failure Disposition: Admitted as Observation Condition on Discharge: Fair Referrals: Keyon Alamo MD [Primary Care Provider] - - Critical Care Critical Care Time: No Attestation: On 08/24/20, the high probability of a clinically significant, sudden or life threatening deterioration of the following system(s) required my full and direct attention, intervention and personal management. The time I documented below is in addition to time spent performing reported procedures but includes the following listed in this critical care notation. Medical Decision Making - Medical Records Medical records reviewed: Yes: I reviewed the patient's medical records. - Giovani Inquiry Pt receiving controlled substance: No Vital Signs: 08/24/20 17:35 08/24/20 19:31 Temperature 99.3 F Temperature Source Oral Pulse Rate 105 H Pulse Rate [Right] 119 H Respiratory Rate 22 22 Blood Pressure 144/69 H Blood Pressure [Right Arm] 136/64 Blood Pressure Mean [Right Arm] 88 Blood Pressure Source [Right Arm] Automatic Cuff Blood Pressure Position [Right Arm] Supine 02 Sat by Pulse Oximetry 91 L 97 Oxygen Delivery Method Nasal Cannula Oxygen Flow Rate (LPM) 6 - Lab Data Lab results reviewed: Yes: I reviewed the patient's lab results. Lab Results 08/24/20 17:20: WBC 18.7 H, RBC 3.78 L, Hgb 10.3 L, Hct 33.5 L, MCV 88.8, MCH 27.2, MCHC 30.7 L, RDW 16.7, Plt Count 484 H, MPV 8.2, Neut % (Auto) 77.0, Lymph % (Auto) 18.0, [place] % (Auto) 3.6, Eos % (Auto) 1.0, Baso % (Auto) 0.3, Neut # (Auto) 14.4 H, Lymph # (Auto) 3.4, [place] # (Auto) 0.7, Eos # (Auto) 0.2, Baso # (Auto) 0.1, Total Counted 100, Neutrophils % (Manual) 79 H, Lymphocytes % (Manual) 16, Monocytes % (Manual) 3, Eosinophils % (Manual) 2, Platelet Estimate Slight increase, RBC Morphology Normal 08/24/20 17:20: Sodium 138, Potassium 4.3, Chloride 101, Carbon Dioxide 31 H, Anion Gap 10.3, BUN 40 H, Creatinine 1.60 H, Estimated Creat Clear 40, Estimated GFR 31 L, Est GFR ( Amer) 37 L, Glucose 168 H, Calcium 8.5, Troponin I < 0.01 08/24/20 17:20: NT-Pro-B Natriuret Pep 29843 H 08/24/20 17:44: Specimen Source Right radial, O2 % 15lpm, ABG pH 7.42, ABG pCO2 41.5, ABG pO2 101.3 H, ABG HCO3 26.1 H, ABG Total CO2 27.3 H, ABG O2 Saturation 98, ABG Base Excess 1.5, Thanh Test Acceptable Elevated white count decreased GFR no significant changes in BNP white count from previous admits Result diagrams: 08/24/20 17:20 08/24/20 17:20 Orders (Tests/Meds): ORDERS Category Date Time Status Full Resp Panel w/COVID ([facility]) Routine Lab 08/24/20 19:17 Received Lactic Acid Stat Lab 08/24/20 17:46 Ordered Troponin I Q3H Lab 08/24/20 21:00 Ordered Troponin I Q3H Lab 08/25/20 00:00 Ordered Blood Culture Stat Micro 08/24/20 17:46 Ordered - Radiology Data #1 Image(s): Chest Image Reviewed: Yes I reviewed the patient's radiology results, Yes I discussed the image results w/the radiologist Preliminary Findings: No Infiltrates Seen IMPRESSION: 1. The lungs are hyperinflated, consistent with underlying small airways disease. 2. Atelectatic and/or early infiltrative changes noted within both lung bases. - ECG Data Tracing #1 Normal Sinus Rhythm: No Arrhythmias present: afib/aflutter Ischemic changes: non-specific ST-T wave changes General Adult HPI - General Chief complaint: Shortness of Breath/Dyspnea Stated complaint: soa Time Seen by Provider: 08/24/20 18:45 Mode of Arrival: EMS Source of Information: Relative Limitations: Physical Limitations Description of Symptoms (Recalled from ER Triage Doc. by RN): Patient from [facility]. staff called and stated that patient oxygen saturation was 67% on 3L O2, patient received duoneb before EMS arrival. Patient currently on nonrebreather satting 98% - History of Present
[2020-08-24 19:33] LABS: NT Pro Brain Natriuretic Pep. 13000 pg/mL (0-450)
[2020-08-24 19:38] LABS: Adenovirus,PCR Not Detected (NotDetected); Bordetella Pertussis Not Detected (NotDetected); Chlamydophila Pneumoniae, PCR Not Detected (NotDetected); Coronavirus 19, PCR Not Detected (NotDetected); Coronavirus 229E Not Detected (NotDetected); Coronavirus NL63 Not Detected (NotDetected); Coronavirus OC43 Not Detected (NotDetected); Coronovirus HKU1,PCR Not Detected (NotDetected); Human Metapneumovirus Not Detected (NotDetected); Influenza A, PCR Not Detected (NotDetected); Influenza AH1, 2009 Not Detected (NotDetected); Influenza AH1, PCR Not Detected (NotDetected); Influenza AH3,PCR Not Detected (NotDetected); Influenza B, PCR Not Detected (NotDetected); Mycoplasma Pneumoniae, PCR Not Detected (NotDetected); Parainfluenza 1, PCR Not Detected (NotDetected); Parainfluenza 2, PCR Not Detected (NotDetected); Parainfluenza 3, PCR Not Detected (NotDetected); Parainfluenza 4, PCR Not Detected (NotDetected); Respiratory Syncytial Virus Not Detected (NotDetected); Rhinovirus/Enterovirus Not Detected (NotDetected)
[2020-08-24 19:51] LABS: Eosinophils % 2 % (0-3); Lymphocytes % 16 % (10-50); Monocytes % 3 % (2-9); Neutrophils % 79 % (42-76); Platelet Estimate Slight Increase; RBC Morphology Normal; Total Cells Counted 100
--- NOTE | 2020-08-24 20:00 | PC.NURSE ---
pt turned on right side.
[2020-08-24 20:52] LABS: Lactic Acid 1.1 mmol/L (0.7-2.1)
[2020-08-24 21:47] LABS: Microscopic, Urine URINE MICROSCOPIC (MICROSCOPIC)
[2020-08-24 21:50] LABS: Appearance,Urine TURBID (Clear); Bilirubin,Urine Negative (Negative); Blood, Urine 2+ (Negative); Color,Urine YELLOW (Yellow); Glucose,Urine (UA) Negative (Negative); Ketones,Urine TRACE (Negative); Leukocyte Esterase,Urine 2+ (Negative); Nitrate,Urine Negative (Negative); PH,Urine 5.5 (5.0-8.5); Protein,Urine 2+ (Negative); Specific Gravity, Urine >= 1.030 (1.005-1.030); Urobilinogen,Urine 0.2 EU/dl (0.2)
[2020-08-24 22:00] LABS: Amorphous Sediment,Urine 1+ /lpf; Bacteria,Urine 4+ /lpf; Mucus,Urine 1+ /lpf
--- NOTE | 2020-08-24 22:11 | PC.NURSE ---
pt laying in bed no needs at this time
--- NOTE | 2020-08-24 22:21 | PC.NURSE ---
pt turned supine at this time.
[2020-08-24 22:37] LABS: Troponin I 0.01 ng/ml (0.00-0.034)
--- NOTE | 2020-08-24 23:27 | PC.NURSE ---
Respiratory was in room. Daughter at bedside. No new needs at this time.
[2020-08-25] VITALS (27 sets, daily range): BP systolic 96–133; BP diastolic 49–72; PULSE 60–126; RESP 14–22; TEMP 36.8; O2SAT 89–100
--- NOTE | 2020-08-25 00:30 | PC.NURSE ---
pt is asleep in room.
[2020-08-25 00:43] LABS: Troponin I 0.02 ng/ml (0.00-0.034)
--- NOTE | 2020-08-25 01:21 | PC.NURSE ---
pt sleeping. no needs at this time.
--- NOTE | 2020-08-25 03:26 | PC.NURSE ---
pt turned on left side
--- NOTE | 2020-08-25 04:37 | PC.NURSE ---
pt repositioned to rt side and heel floated.
--- NOTE | 2020-08-25 05:46 | PC.NURSE ---
pt repositioned to lt side. pt resting
[2020-08-25 06:51] LABS: Basophils # 0.1 K/mm3 (0-0.2); Basophils % 0.4 % (0.1-2.0); Eosinophils # 0.3 K/mm3 (0.0-0.4); Eosinophils % 1.4 % (0.1-12.0); Hematocrit 30.2 % (37.0-47.0); Lymphocytes % 17.3 % (10-50); Mean Corpuscular HGB Conc 30.4 g/dL (31.8-35.4); Mean Corpuscular Hemoglobin 26.9 pg (27.0-31.2); Mean Corpuscular Volume 88.6 fl (81-99); Mean Platelet Volume 7.8 fl (7.4-10.4); Monocytes # 0.8 K/mm3 (0.1-1.0); Monocytes % 4.4 % (1.7-9.3); Neutrophils # 13.4 K/mm3 (1.8-7.8); Neutrophils % 76.6 % (37.0-80.0); Platelet Count 435 K/mm3 (142-424); Red Blood Count 3.41 M/mm3 (4.20-5.40); Red Cell Distribution Width 16.6 % (11.5-17.5); White Blood Count 17.5 K/mm3 (4.8-10.8)
[2020-08-25 06:57] LABS: MANUAL DIFFERENTIAL MANUAL DIFFERENTIAL (MANUAL DIFF)
[2020-08-25 07:10] LABS: Anion Gap 8.3 mEq/L (5-15); Blood Urea Nitrogen 43 mg/dl (7-17); Calcium 8.2 mg/dl (8.4-10.2); Carbon Dioxide 31 mmol/L (22.0-30.0); Chloride 101 mmol/L (98-107); Creatinine Clearance Estimated 38 mL/min (50-200); Estimated Glomerular Filt Rate 29 ml/min (>60); GFR (African American) 35 ML/MIN (>60); Glucose 123 mg/dl (74-100); Potassium 4.3 mmoL/L (3.5-5.1); Sodium 136 mmol/L (136-145)
[2020-08-25 07:20] LABS: Eosinophils % 1 % (0-3); Lymphocytes % 20 % (10-50); Monocytes % 6 % (2-9); Neutrophils % 73 % (42-76); Total Cells Counted 100
[2020-08-25 07:23] LABS: Platelet Estimate Slight Increase; RBC Morphology Normal
--- NOTE | 2020-08-25 07:49 | XR_ITS ---
PROCEDURE: XR CHEST PORTABLE CLINICAL HISTORY: sob COMPARISON: No exams were available for comparison FINDINGS: The cardiomediastinal silhouette and pulmonary vascularity are within normal limits. The lungs are clear without infiltrates, suspicious nodules, or pleural effusions. Neurostimulator device noted over the mid and upper thoracic spine. There are degenerative changes in the shoulders. IMPRESSION: No acute findings. Dictated by: Thanh Galo MD 08/25/2020 08:38 Thanh Galo MD in [place] 08/25/2020 08:38
--- NOTE | 2020-08-25 07:58 | PC.NURSE ---
siddhartha clancy at BS
--- NOTE | 2020-08-25 08:02 | PC.NURSE ---
rad at BS for portable xray
[2020-08-25 08:13] LABS: Hemoglobin 9.3 g/dL (12.2-16.2)
--- NOTE | 2020-08-25 09:15 | PC.NURSE ---
pt repositioned onto her R side, heels are floated, pt daughter at BS. Will continue to monitor
--- NOTE | 2020-08-25 09:30 | PC.NURSE ---
TOOK PT OFF OF VAPOTHERM AND PLACED ON 6L NC. PT TOLERATING WELL.
--- NOTE | 2020-08-25 10:16 | PC.NURSE ---
Pt off of vapotherm at this time and on NC 3lpm to see how patient tolerates. Daughter at bedside, no other new needs at this time.
--- NOTE | 2020-08-25 10:49 | HMH.PHAVTE ---
[facility] Pharmacy VTE Monitoring - Patient Demographics Admission date: 08/25/20 Report Date: 08/25/20 Time: 10:49 Allergies/Adverse Reactions: Patient Allergies cefuroxime [From Ceftin] Allergy (Intermediate, Verified 08/24/20 19:00) Unknown allergy reaction ciprofloxacin [From Cipro] Allergy (Intermediate, Verified 08/24/20 19:00) rash doxycycline Allergy (Intermediate, Verified 08/24/20 19:00) Unknown allergy reaction levofloxacin [From Levaquin] Allergy (Intermediate, Verified 08/24/20 19:00) Unknown allergy reaction NSAIDS (Non-Steroidal Anti-Inflamma Allergy (Intermediate, Verified 08/24/20 19:00) Unknown allergy reaction aspirin Allergy (Mild, Verified 08/24/20 19:00) asthma attack sulfamethoxazole [From Bactrim] Allergy (Mild, Verified 08/24/20 19:00) rash trimethoprim [From Bactrim] Allergy (Mild, Verified 08/24/20 19:00) rash vancomycin Allergy (Mild, Verified 08/24/20 19:00) rash Height: 1.7 m Weight: 99.79 kg Patient Problems: Current Active Problems Diastolic heart failure (Acute) Dyspnea (Acute) CHF (congestive heart failure) (Chronic) COPD (chronic obstructive pulmonary disease) (Chronic) - VTE Risk Labs: VTE Related Lab Results Hgb 9.3 g/dL (12.2-16.2) L 08/25/20 06:40 Hct 30.2 % (37.0-47.0) L 08/25/20 06:40 Plt Count 435 K/mm3 (142-424) H 08/25/20 06:40 BUN 43 mg/dl (7-17) H 08/25/20 06:40 Creatinine 1.70 mg/dl (0.52-1.04) H 08/25/20 06:40 Estimated Creat Clear 38 mL/min (50-200) 08/25/20 06:40 Clinical Trial Participant: No - Prophylaxis VTE Prophylaxis Ordered?: Yes Types of VTE Prophylaxis: TEDS Knee High
--- NOTE | 2020-08-25 10:52 | PC.NURSE ---
HOSPICE AT BEDSIDE FOR A CONSULT
--- NOTE | 2020-08-25 11:05 | PC.NURSE ---
hospice is here speaking with daughter, when pt gets back to [facility] they are gonna come there and get her admitted. Pt has been off of vapotherm and back to 6 lpm via nc and doing well, o2 sat 96% and in no distress. Daughter is ok with plan
--- NOTE | 2020-08-25 11:13 | HMH.PHAINT ---
clarified home medication list using list from [place] and list from recent admission to [facility]
--- NOTE | 2020-08-25 11:56 | PC.NURSE ---
O2 SAT DROPPED TO 89% ON 3 LPM , O2 INCREASED TO 4 LPM
--- NOTE | 2020-08-25 11:57 | PC.NURSE ---
attempted to reposition pt onto her L side at this time, pt states she does not want to be repositioned at this time, states she is comfortable. Pt is on her R side. pt daughter at BS pt is requesting a banana will continue to monitor
--- NOTE | 2020-08-25 12:14 | PC.NURSE ---
SPOKE WITH DR. OSORIO AND HE STATED TO KEEP [facility] CATHETER AND IV IN PLACE AND ALLOW HOSPICE TO DETERMINE IF PATIENT NEEDS TO KEEP IN PLACE. DR. OSORIO INFORMED PATIENT IS MAINTAINING AN OXYGENATION OF 93% ON 4 LITERS OF O2. [facility] WILL BE MADE AWARE AND MACK ALEJANDRO WILL BE CONFIRM WITH [facility] THAT THEY WILL TAKE PATIENT ON 4 LITERS OF O2
--- NOTE | 2020-08-25 12:20 | PC.NURSE ---
NURSE ILIANA WESTFALL FROM [facility] WAS AGREEABLE FOR PATIENT TO COME BACK TO FACILITY ON 4 LITERS OF OXYGEN
--- NOTE | 2020-08-25 12:20 | PC.NURSE ---
pt repositioned onto her L side at this time, pt heels floated off the bed. Will continue to monitor
--- NOTE | 2020-08-25 12:27 | PC.NURSE ---
BOAZ GORDON MADE AWARE [facility] BEING AGREEABLE TO MANAGEMENT ON 4 LITERS. HE STATED HE WILL WRITE THE PATIENT'S ORDERS
--- NOTE | 2020-08-25 12:28 | HMH.HPDC ---
General - General Admission date:: 08/24/20 Discharge date: 08/25/20 *Admission Date: 08/25/20 *Chief complaint: Shortness of Breath *History of present illness: 85-year-old female patient presented to [facility] emergency department from [facility]. Staff there reports oxygen saturation was 67% on 3 L per nasal cannula, in route patient received 1 DuoNeb per EMS, patient oxygenation 98% on nonrebreather upon arrival. She is a residential patient with a past history of CHF and positive Covid, she has been treated in the past 2 paracentesis in the last couple days has had increased shortness of breath. Patient's daughter is bedside [facility] History I have reviewed the patient's past medical history: Yes Medical History: Reports:: Anxiety, Arrhythmia, Asthma, Atrial Fibrillation, Congestive Heart Failure, Chronic Obstructive Pulmonary Disease (COPD), Gastroesophageal Reflux Disease(GERD), Home Oxygen, Hypertension, Osteoporosis, Renal Insufficiency, Urinary Tract Infection Denies:: Cancer, Diabetes Mellitus Type 1, Diabetes Mellitus Type 2, MRSA *Have you ever received a pneumonia vaccine?: Yes *Have you received a flu vaccine this season?: Yes Other Medical History: Reports: Anemia, Cataracts, Hormone Therapy, Hypothyroidism, Osteoporosis, Thyroid Disease Laterality Cases: Right: Arthroscopy Shoulder Other Surgeries: Yes: Cardiac Catheterization, Cholecystectomy, Coronary Stent, Hysterectomy-Total Amputation: No Fractures: Yes - *Social History Last grade of school completed: 11th or 12th Smoking Status: Former smoker Tobacco Type: cigarettes # Packs/Day (cigarettes): 4 #Yrs smoked (if former smoker): 40 Alcohol Intake: never Alcohol Intake Frequency:: 0-2 drinks per day Substance Use Type: denies use Last Used Substance: unknown *Occupational Status:: retired Housing: residential Household Members: family *Travel in the last 8 weeks: None - Psychiatric History Expresses thoughts of harming self/others: None Pschychiatric History:: Reports:: Anxiety Family Hx:: Coronary Artery Disease, Stroke Review of Systems - Review of Systems Review of systems:: pertinent systems reviewed and negative unless documented below - Constitutional Reports lack of energy, Reports weakness - Eyes Denies blurry vision, Denies double vision - ENT Denies abnormal hearing, Denies mouth lesions - *Cardiovascular Reports shortness of breath, Denies chest pain - *Respiratory Reports shortness of breath, Denies chest congestion - *Gastrointestinal Denies abdominal pain, Denies bright, red blood in stools - *Musculoskeletal Denies joint pain, Denies joint swelling - Integumentary/Breasts Denies changing lesions, Denies unusual bruising - *Neurologic Denies burning sensations, Denies loss of vision - Psychiatric Denies hearing things others do not hear, Denies behavioral changes - Endocrine Denies cold intolerance, Denies heat intolerance - Hematologic/Lymphatic Denies easy bleeding, Denies easy bruising - Allergic/Immunologic Denies GI upset with certain foods, Denies tongue swelling Exam Vital signs and Labs for Last 24 Hours: Temp Pulse Resp BP Pulse Ox 100.0 F H 108 H 18 126/58 L 91 L 08/24/20 22:45 08/25/20 12:00 08/25/20 12:00 08/25/20 12:00 08/25/20 12:00 Laboratory Results - last 24 hr 08/24/20 17:20: WBC 18.7 H, RBC 3.78 L, Hgb 10.3 L, Hct 33.5 L, MCV 88.8, MCH 27.2, MCHC 30.7 L, RDW 16.7, Plt Count 484 H, MPV 8.2, Neut % (Auto) 77.0, Lymph % (Auto) 18.0, [place] % (Auto) 3.6, Eos % (Auto) 1.0, Baso % (Auto) 0.3, Neut # (Auto) 14.4 H, Lymph # (Auto) 3.4, [place] # (Auto) 0.7, Eos # (Auto) 0.2, Baso # (Auto) 0.1, Total Counted 100, Neutrophils % (Manual) 79 H, Lymphocytes % (Manual) 16, Monocytes % (Manual) 3, Eosinophils % (Manual) 2, Platelet Estimate Slight increase, RBC Morphology Normal 08/24/20 17:20: Sodium 138, Potassium 4.3, Chloride 101, Carbon Dioxide 31 H, Anion
--- NOTE | 2020-08-25 13:03 | PC.NURSE ---
[facility] AGREED TO COME TRANSFER PATIENT
--- NOTE | 2020-08-25 15:09 | PC.NURSE ---
FAXED HISTORY AND PHYSICAL REPORT TO [facility]- WHO IS ADMITTING PATIENT TO HOSPICE WHILE AT [facility]
== END 2020-08-25 13:33 | disposition admitted as inpatient to this hospital (09) ==
LOC: ER 20:09 → 2ND 20:19
PROVIDERS: Emergency Provider Emergency Medicine; PCP Emergency Medicine
DX: I11.0 Hypertensive heart disease with heart failure (principal); I50.31 Acute diastolic (congestive) heart failure; J96.21 Acute and chronic respiratory failure with hypoxia; I48.91 Unspecified atrial fibrillation; E43 Unspecified severe protein-calorie malnutrition; Z68.34 Body mass index [BMI] 34.0-34.9, adult; Z99.81 Dependence on supplemental oxygen; N39.0 Urinary tract infection, site not specified; E03.9 Hypothyroidism, unspecified; Z79.890 Hormone replacement therapy; Z79.899 Other long term (current) drug therapy; Z79.01 Long term (current) use of anticoagulants; Z86.16 Personal history of COVID-19; Z88.8 Allergy status to other drugs, medicaments and biological substances
CPT/HCPCS: 71045; 80048; 81001; 82803; 83605; 83880; 84484; 85007; 85025; 87040; 87086; 87186; 87581; 87633; 87798; 93005; 96365; 99283; J1335